=== PATIENT | male | born 1975 | race Caucasian/White ===

== ENCOUNTER 2017-04-06 15:42 | Inpatient (IN) ==
[2017-04-06] MEDS ORDERED: ONDANSETRON 4 MG/2 ML VIAL IV STA (16:05)
[2017-04-06] MEDS ORDERED: METOCLOPRAMIDE 10 MG/2 ML VIAL IV STA (16:05)
[2017-04-06] MEDS ORDERED: LEVOFLOXACIN INJ 750 MG in PREMIX 1 EACH IV STA (16:05)
--- NOTE | 2017-04-06 16:10 | Emergency Department Note ---
Arrival - Arrival Chief Complaint: Abdominal / Flank Pain Stated Complaint: POSSIBLE KIDNEY STONE ED Nursing Triage Note: L FLANK PAIN FOR PAST 3 DAYS,ESRD, MWF, HX OF RENAL CALCULI, Mode of Arrival: Wheelchair Limitations: No Limitations Source: Patient Time Seen by Provider: 04/06/17 16:05 - History of Present Illness HPI Narrative: This 41-year-old white male presents with 3 days of crescendo left flank pain radiating into the left testicle and the back associated with nausea but no elen vomiting. The patient has a long-standing history of renal stone disease with stones occurring both right and left kidneys. Of note further complicating this is the fact the patient is on dialysis Wednesday, Wednesdays, and Fridays. Currently he denies any hematuria, chills, fever, or elen vomiting. Of note, the patient has a long-standing history as well of recurrent pancreatitis which he has been told is due to high blood sugars in the past. He currently is uncomfortable but in no acute medical distress. Onset (ago): day(s) (Patient presents 3 days post onset of symptoms) Allergies/Adverse Reactions: Allergies Allergy/AdvReac Type Severity Reaction Status Date / Time tramadol [From Ultram] AdvReac Severe Seizure Verified 04/06/17 15:47 hydrocodone AdvReac Intermediate Vomiting Verified 04/06/17 15:47 sulfamethoxazole AdvReac Mild KIDNEY Verified 04/06/17 15:47 [From Bactrim] REACTION STATED BY PT MOTHER trimethoprim [From Bactrim] AdvReac Mild KIDNEY Verified 04/06/17 15:47 REACTION STATED BY PT MOTHER Home Medications: Home Medications Medication Instructions Recorded Confirmed Type Dexlansoprazole [Dexilant] 60 mg PO DAILY 02/07/15 04/06/17 History Ranitidine Tab [Zantac Tab] 150 mg PO BID 02/07/15 04/06/17 History Fenofibrate [Tricor] 145 mg PO BEDTIME 03/10/16 04/06/17 History Levothyroxine Tab [Synthroid Tab] 75 mcg PO DAILY 03/10/16 04/06/17 History Linagliptin [Tradjenta] 5 mg PO QAM 03/10/16 04/06/17 History Metoprolol Succinate Xl [Toprol Xl] 100 mg PO DAILY 03/10/16 04/06/17 History Aspirin EC Tab 81 mg PO QAM 08/12/16 04/06/17 History Furosemide 80 mg PO BID 08/12/16 04/06/17 History Acetaminophen Tab [Tylenol Tab] 650 mg PO Q4H PRN #0 tablet 08/15/16 04/06/17 Rx Pregabalin [Lyrica] 150 mg PO BID 09/29/16 04/06/17 History Atorvastatin [Lipitor] 20 mg PO BEDTIME 04/06/17 04/06/17 History Insulin Aspart [NovoLOG] See Protocol SUBCUT BID 04/06/17 04/06/17 History Oxycodone HCl/Acetaminophen 1 each PO Q4H PRN 04/06/17 04/06/17 History [Percocet 7.5-325 mg Tablet] Sucroferric Oxyhydroxide [Velphoro 500 mg PO DAILY 04/06/17 04/06/17 History Chew Tab] levETIRAcetam [Keppra] 1,500 mg PO BID 04/06/17 04/06/17 History predniSONE TAB [PredniSONE] 10 mg PO DAILY 04/06/17 04/06/17 History Review of System - Review of System 12 point system: reviewed and no additional remarkable complaints except as stated - Review of System Constitutional: Present: as per HPI Gastrointestinal: Present: as per HPI Genitourinary male: Present: as per HPI Medical,Surgical,& Family Hx - Medical History Cardio: History of: Cerebrovascular Disease, CAD (stent x 2), Hypertension, [place] ( 2012) Psychological: History of: Depression Neurology: History of: Migraine, Peripheral Neuropathy, Seizures No history of: Cerebrovascular Accident HEENT: History of: Ear Problem (LOST HEARING OUT OF RIGHT EAR POSS DUE TO NERVE DAMAGE STATES PT. 3YEAR AGO) Endocrine: History of: Diabetes Mellitus (IDDM), Diabetes Mellitus (NIDDM), Dyslipidemia, Thyroid Disorder (UNDERACTIVE THYROID PROBLEMS) Respiratory: History of: Obstructive Sleep Apnea Comment Only: Respiratory Problems (MEDIASTINOSCOPY) Renal: History of: Dialysis (M,W,F) Genitourinary: History of: Kidney Stones Gastrointestinal: History of: GERD, Hemorrhoids, Liver Problems (biopsy ok), Pancreatitis, GI Problems (NAUSEA AND VOMITING) - Surgical History Cardiac Surgeries: Sugical HX of: Cardiac Catheterization, Vascular Access Devices (fistula 2014) Thoracic Surgeries: Surgical HX of;: Lithotripsy (02/16/15) HEENT Surgeries: Surgical HX of: Eye Surgery (LASER SURGERY 2013) Abdominal Surgeries: Surgical HX of: Colonoscopy Reproductive Surgeries: Surgical HX of;: Genitourinary Surgery Orthopedic Surgeries: Surgical HX of;: Orthopedic Surgery (hip surgery secondary to fracture) - Family History Family History: Reports;: Family Diabetes (FATHER), Family Hypertension (MOTHER , FATHER, GRANDPARNENTS MATERNAL AND PATERNAL) Comment Only: Family Cancer (maternal grandfather(prostate)), Family Stroke ( Maternal grandmother) - Social History Smoking Status: Former smoker Exam Physical Examination: GENERAL: Well developed, well nourished obviously uncomfortable white male heart rate 74. HEENT: Normocephalic. No trauma. Moist mucous membranes. EOMI. PERRLA. ENT NML NECK: Supple. No adenopathy. CARDIAC: Regular. No murmurs. CHEST: Clear to auscultation. No respiratory distress. O2 sat 90% ABDOMEN: Soft. Very tender left CVA and left lower quadrant. Hypoactive bowel sounds. EXTREMITIES: No trauma. Normal ROM. No pedal edema. Left upper extremity fistula with good thrill. SKIN: No diaphoresis. No rash. NEURO: Alert. Neuro intact. No focal deficits. Vital Signs: Vital Signs Temperature 96.8 F L 04/06/17 16:06 Pulse Rate 73 04/06/17 16:45 Respiratory Rate 18 04/06/17 16:19 Blood Pressure 177/102 04/06/17 16:45 O2 Sat by Pulse Oximetry 96 04/06/17 16:45 Course - Reevaluation(s) Reevaluation #1: Advised patient and family that abdominal pain is probably due to the severe exacerbation of pancreatitis. For this reason he will need admission. - Consultations Consultation #1: Discussed with hospitalist service who will admit for further evaluation treatment. Results - Labs CBC & BMP: 04/06/17 16:03 04/06/17 16:03 Labs: I have reviewed the laboratory and noted the elevated blood sugar and severely elevated lipase. - Diagnostic Findings Procedure: Chest x-ray: image reviewed by me, report reviewed by me (Enlarged right pulmonary artery but otherwise negative chest), CT: image reviewed by me, report reviewed by me (No evidence of ureteral stone although a small stone in the lower pole left kidney was noted. There was significant increase in hepatic lesions as well as evidence of cholelithiasis and increase and portacaval lymphadenopathy since prior study in August 2016) Disposition Clinical Impression: Pancreatitis, Dialysis dependent renal failure, Increasing liver lesions Case discussed with: patient, patient's family Disposition: Still a Patient Condition: Guarded Time of Disposition: 17:59
[2017-04-06] MEDS ORDERED: LEVOFLOXACIN INJ 0 ML IV ONE (16:11)
[2017-04-06] MEDS ORDERED: HYDROmorphone 2 MG/1 ML VIAL ONE ×2 (16:11→17:34)
[2017-04-06] MEDS ORDERED: ONDANSETRON 4 MG/2 ML VIAL ONE (16:11)
[2017-04-06] MEDS ORDERED: METOCLOPRAMIDE 10 MG/2 ML VIAL ONE (16:11)
[2017-04-06 16:16] LABS: Basophils # 0.1 10*3/uL (0.0-0.2); Basophils % 1.2 % (0.0-0.8); Eosinophils # 0.1 10*3/uL (0.0-0.87); Hematocrit 42.5 VOL% (42.0-52.0); Hemoglobin 14.6 GM/DL (14.0-18.0); Immature Granulocytes % 1.2 %; Immature Granulocytes Absolute 0.06 #; Lymphocytes % 19.4 % (21.2-54.2); Mean Corpuscular HGB Conc 34.4 GM/DL (32-36); Mean Corpuscular Hemoglobin 31 PG (27-34); Monocytes # 0.7 10*3/uL (0.11-0.8); Monocytes % 13.6 % (1.7-12.7); Neutrophils # 3.1 10*3/uL (1.4-7.4); Neutrophils % 62.6 % (38.7-73.9); Red Blood Count 4.72 MC/CUMM (3.8-5.5); Red Cell Distribution Width 12.7 % (9.3-17.3)
[2017-04-06 16:20] LABS: Platelet Count 96 T/CUMM (130-400)
[2017-04-06] MEDS: HYDROmorphone 2 MG/1 ML VIAL IV PRN ×3 (16:23→17:35)
--- NOTE | 2017-04-06 16:37 | CT Report ---
CT abdomen pelvis wo con Indication: Left renal stone. Comparison: CT abdomen and pelvis 01/08/2016. Technique: CT of the abdomen and pelvis was performed without administration of intravenous contrast. The CT examination was performed using one or more of the following dose reduction techniques: Automatic exposure control, adjustment of the mA and kV according to patient size, use of acute or iterative reconstruction techniques. Findings: Calcification lies along the course of the lower pole interpolar renal artery and could reflect lower pole renal vascular calcification or nonobstructing nephrolith. Size is stable compared to prior study and measures 4 to 5 mm. High attenuation material is noted within each of the calyces as well as suggested within the ureters. Etiology is uncertain. There appears to be contrast within the urinary bladder additionally. Increased attenuation within the gallbladder may in part reflect vicarious excretion of contrast. Small layering calcified gallstones additionally present within the gallbladder. No findings are present suggest acute cholecystitis. Numerous hypoattenuating lesions of the liver present. Further evaluation is limited by lack of intravenous contrast. The largest of these lies within the posterior segment right hepatic lobe image #35 measuring 2.4 cm in transverse dimension. Additional lesions along the lateral capsular margin of the right hepatic lobe image #40 measures up to 2 cm. Too numerous to count additional lesions are noted throughout the right hepatic lobe with some suggested additionally in the left hepatic lobe. Spleen is upper limits of normal in size. The noncontrast enhanced appearance of the pancreas is unremarkable. Multiple retroperitoneal and peripancreatic lymph nodes are borderline in size to minimally enlarged. These measure up to 8 to 9 mm is demonstrated anterior to the aorta image #[id number] additional lower para-aortic lymph nodes image #82 measuring up to 13 mm. These lymph nodes have increased in size since the comparison study. Additionally, there is been some minimal increase in size of portacaval lymph nodes which now measure 14-15 mm in short axis dimension. Streak artifact arises from the right iliac wing from surgical hardware. There is laxity of the lateral abdominal wall adjacent iliac wing without elen herniation. The appearance of the stomach, small bowel, large bowel suggests no distinct evidence of neoplasm or acute pathology. A few scattered diverticula are present along lower descending colon. Scattered diverticula are additionally present along the ascending colon. Osseous structures demonstrate no acute findings. Previously repaired right iliac wing is noted. Soft tissues and musculature of the body wall with exception of the diastases along the right posterior lateral abdominal wall appear intact without evidence of acute pathology. Impression: 1. Size and number of multiple hepatic metastatic lesions has increased slightly since comparison study performed 09/22/2016. 2. Cholelithiasis. 3. There is evidence of recent contrast enhanced study with residual contrast noted within the renal collecting systems, urinary bladder, with vicarious excretion of contrast suggested within the gallbladder. 4. Interval increase in size and number of enlarged portacaval and retroperitoneal lymph nodes since the 2016 study, minimal change since August 2016. 5. Small renovascular calcification versus nonobstructing nephrolith involving the posterior lower left kidney.. 04/06/2017 4:26 PM PROCEDURE INTERPRETED AT [facility] DEPARTMENT OF RADIOLOGY Final Report Signed by: Dr. Bao Read
[2017-04-06 16:51] LABS: Bilirubin,Total 0.5 MG/DL (0.2-1.0); Calcium 8.8 MG/DL (8.5-10.1); Osmolality,Calculated 293.4 MOS/KG (273-304); Potassium 4.4 MMOL/L (3.5-5.1); Total Protein 7.1 G/DL (6.4-8.3)
[2017-04-06 17:00] LABS: Platelet Estimate Adequate
[2017-04-06] MEDS ORDERED: INSULIN REGULAR 100 UNIT/ML IV STA (17:18)
[2017-04-06] MEDS ORDERED: INSULIN REGULAR 100 UNIT/ML ONE (17:26)
--- NOTE | 2017-04-06 18:33 | XRay Report ---
XR chest 1V portable Indication: Chest pain. Comparison: Chest x-ray 11/14/2016. Technique: Portable AP chest was performed. Findings: Limited inspiration is present. The heart size is upper limits of normal, stable. Enlargement of pulmonary arteries is suggested. This finding also is stable compared to prior study. Lungs are clear to the degree of inspiration. Bones and soft tissues demonstrate no acute findings. Impression: 1. Bilateral prominence of hilar structures likely reflects in part pulmonary artery. Technique likely accentuates this finding. PA/lateral chest x-ray is recommended for further evaluation. 04/06/2017 6:03 PM PROCEDURE INTERPRETED AT [facility] DEPARTMENT OF RADIOLOGY Final Report Signed by: Dr. Bao Read
--- NOTE | 2017-04-06 18:33 | Hospitalist History & Physical ---
Assessment and Plan - Time spent with patient Time spent with patient: Greater than 30 minutes (1) Abdominal pain Status: Acute Assessment and plan: Patient will be admitted with abdominal pain. He does have an elevated lipase however his symptoms are not typical for that of pancreatitis. He has had no nausea or vomiting therefore will continue with the diet at this time and provide pain control. Will obtain ultrasound of his liver gallbladder pancreas and kidneys. His description of the pain is consistent with kidney stones, however his CT scan is noted. Follow-up laboratory studies in the a.m. and he will be reassessed by the hospitalist service at which time she may need formal specialty consultation based on pending database. Patient states he is aware of the liver lesions noted on the CT scan and states he has had multiple biopsies in the past and they have proven to be benign. He states they have related these to prior seizure therapy. Current Visit: Yes (2) End stage renal disease on dialysis Problem details: Routine CHD tomorrow. UF to EDW as tolerated by hemodynamics. 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 Current Visit: No (3) Hypertension Status: Chronic Assessment and plan: He is mildly hypertensive at this time. We will continue his current medical regimen with as needed antihypertensive therapy throughout the night. Current Visit: No Qualifiers: Hypertension type: essential hypertension Qualified Code(s): I10 - Essential (primary) hypertension (4) Hypothyroidism Status: Chronic Assessment and plan: Continue current thyroid replacement therapy. Current Visit: No (5) Insulin dependent diabetes mellitus Status: Chronic Assessment and plan: We will continue his routine medical therapy with Accu-Cheks and sliding scale insulin. Current Visit: No (6) Seizure disorder Status: Chronic Assessment and plan: Continue his current medical regimen. No recent seizure activity noted. Current Visit: No (7) CAD (coronary artery disease) Problem details: Known dz, hx of unable to pass stent in past. Followed by cardiology. Status: Chronic Assessment and plan: Patient states he has had a myocardial infarction in the past he has had cardiac catheterization with 2 stent placements. He denies any recent chest pain or shortness of breath consistent with acute coronary syndrome. Continue his current medical regimen. Current Visit: No History of Present Illness Chief complaint: Abdominal pain History of present illness: Mr. Sam is a 41 year old white male with a history of hypertension, diabetes mellitus, end-stage renal disease, seizure disorder who has a 3-4 day history of a left back and flank pain with radiation to his testicles. He has had some nausea but no vomiting. He has had no fever, chills, chest pain, shortness breath, cough or sputum production. He states he has minimal urine production. He has had kidney stones in the past and states that this is similar to that type of discomfort. He had a procedure in [place] this morning involving his left upper extremity dialysis graft. Thereafter he felt fine and ate a hamburger for lunch with no change in his pain. However it worsened later in the afternoon and he came to the emergency department. He states that eating and drinking has not affected his level of pain over the past 3-4 days. His primary care provider is Dr. Wiley Bridges, buttermaker continuous churn Dr. Hopkins, garbage collector driver Dr. Govea. Home Medications Medication Instructions Recorded Confirmed Type Dexlansoprazole [Dexilant] 60 mg PO DAILY 02/07/15 04/06/17 History Ranitidine Tab [Zantac Tab] 150 mg PO BID 02/07/15 04/06/17 History Fenofibrate [Tricor] 145 mg PO BEDTIME 03/10/16 04/06/17 History Levothyroxine Tab [Synthroid Tab] 75 mcg PO DAILY 03/10/16 04/06/17 History Linagliptin [Tradjenta] 5 mg PO QAM 03/10/16 04/06/17 History Metoprolol Succinate Xl [Toprol Xl] 100 mg PO DAILY 03/10/16 04/06/17 History Aspirin EC Tab 81 mg PO QAM 08/12/16 04/06/17 History Furosemide 80 mg PO BID 08/12/16 04/06/17 History Acetaminophen Tab [Tylenol Tab] 650 mg PO Q4H PRN #0 tablet 08/15/16 04/06/17 Rx Pregabalin [Lyrica] 150 mg PO BID 09/29/16 04/06/17 History Atorvastatin [Lipitor] 20 mg PO BEDTIME 04/06/17 04/06/17 History Insulin Aspart [NovoLOG] See Protocol SUBCUT BID 04/06/17 04/06/17 History Oxycodone HCl/Acetaminophen 1 each PO Q4H PRN 04/06/17 04/06/17 History [Percocet 7.5-325 mg Tablet] Sucroferric Oxyhydroxide [Velphoro 500 mg PO DAILY 04/06/17 04/06/17 History Chew Tab] levETIRAcetam [Keppra] 1,500 mg PO BID 04/06/17 04/06/17 History predniSONE TAB [PredniSONE] 10 mg PO DAILY 04/06/17 04/06/17 History Allergies Allergy/AdvReac Type Severity Reaction Status Date / Time tramadol [From Ultram] AdvReac Severe Seizure Verified 04/06/17 15:47 hydrocodone AdvReac Intermediate Vomiting Verified 04/06/17 15:47 sulfamethoxazole AdvReac Mild KIDNEY Verified 04/06/17 15:47 [From Bactrim] REACTION STATED BY PT MOTHER trimethoprim [From Bactrim] AdvReac Mild KIDNEY Verified 04/06/17 15:47 REACTION STATED BY PT MOTHER Medical,Surgical,& Family Hx - Medical History Cardio: History of: Cerebrovascular Disease, CAD (stent x 2), Hypertension, [place] ( 2012) Psychological: History of: Depression Neurology: History of: Migraine, Peripheral Neuropathy, Seizures No history of: Cerebrovascular Accident HEENT: History of: Ear Problem (LOST HEARING OUT OF RIGHT EAR POSS DUE TO NERVE DAMAGE STATES PT. 3YEAR AGO) Endocrine: History of: Diabetes Mellitus (IDDM), Diabetes Mellitus (NIDDM), Dyslipidemia, Thyroid Disorder (UNDERACTIVE THYROID PROBLEMS) Respiratory: History of: Obstructive Sleep Apnea Comment Only: Respiratory Problems (MEDIASTINOSCOPY) Renal: History of: Dialysis (M,W,F) Genitourinary: History of: Kidney Stones Gastrointestinal: History of: GERD, Hemorrhoids, Liver Problems (biopsy ok), Pancreatitis, GI Problems (NAUSEA AND VOMITING) - Surgical History Cardiac Surgeries: Sugical HX of: Cardiac Catheterization, Vascular Access Devices (fistula 2014) Thoracic Surgeries: Surgical HX of;: Lithotripsy (02/16/15) HEENT Surgeries: Surgical HX of: Eye Surgery (LASER SURGERY 2013) Abdominal Surgeries: Surgical HX of: Colonoscopy Reproductive Surgeries: Surgical HX of;: Genitourinary Surgery Orthopedic Surgeries: Surgical HX of;: Orthopedic Surgery (hip surgery secondary to fracture) - Family History Family History: Reports;: Family Diabetes (FATHER), Family Hypertension (MOTHER , FATHER, GRANDPARNENTS MATERNAL AND PATERNAL) Comment Only: Family Cancer (maternal grandfather(prostate)), Family Stroke ( Maternal grandmother) - Social History Smoking Status: Former smoker Frequency of Alcohol Use: None Type of Drug Use: None 12 point system: reviewed and no additional remarkable complaints except as stated Exam - Constitutional Vitals: Period Temp Pulse Resp BP Sys/Briseno Pulse Ox Last 24 Hr 96.8 F-96.8 F 70-78 16-18 154-178/87-103 96-99 General appearance: no acute distress - Head Head exam: Present: normocephalic, atraumatic - Eye Eye exam: Present: EOMI Pupils: Present: NAKUL - ENT ENT exam: Present: normal oropharynx - Neck Neck exam: Absent: lymphadenopathy, meningismus, tenderness, thyromegaly - Respiratory Respiratory exam: Present: clear to auscultation bilaterally. Absent: rales, rhonchi, wheezes - Cardiovascular Cardiovascular exam: Present: regular rate and rhythm. Absent: gallop, systolic murmur, tachycardia - GI/Abdominal GI/Abdominal exam: Present: normal bowel sounds, soft. Absent: mass, organomegaly, tenderness, rebound - Extremities Exam Extremities exam: Absent: calf tenderness, edema - Back Exam Back exam: Present: normal inspection - Neurological Exam Neurological exam: Present: alert, oriented X3, CN II-XII intact. Absent: motor sensory deficit - Psychiatric Psychiatric exam: Present: normal affect, normal mood. Absent: agitated, anxious - Skin Skin exam: Present: warm, dry. Absent: erythema, rash Results - Labs CBC & BMP: 04/06/17 16:03 04/06/17 16:03 Lab Results: I have reviewed the past 24 hour labs - Diagnostic Findings Procedure: Chest x-ray: image reviewed by me, CT Abdomen and Pelvis: report reviewed by me
--- NOTE | 2017-04-06 19:55 | Nephrology Consult Note ---
History of Present Illness Chief complaint: End-stage renal disease History of present illness: Mr. Sam is a 41 year old male with history of end-stage renal disease due to hypertension and diabetes dialyzes on a Wednesday schedule at the [place] dialysis unit. The patient had his dialysis access surgically manipulated in [facility] for left arm swelling. Postprocedure patient mentioned he was feeling fine able to eat his lunch and was traveling back home to the [facility]. However in transfer he started having side pain thought he was having a kidney stone. He has been evaluated in the emergency room no evidence of kidney stone at this particular time but continues to have pain. No fevers or chills. Nephrology is been consulted for renal issues. Home Medications Medication Instructions Recorded Confirmed Type Dexlansoprazole [Dexilant] 60 mg PO DAILY 02/07/15 04/06/17 History Ranitidine Tab [Zantac Tab] 150 mg PO BID 02/07/15 04/06/17 History Fenofibrate [Tricor] 145 mg PO BEDTIME 03/10/16 04/06/17 History Levothyroxine Tab [Synthroid Tab] 75 mcg PO DAILY 03/10/16 04/06/17 History Linagliptin [Tradjenta] 5 mg PO QAM 03/10/16 04/06/17 History Metoprolol Succinate Xl [Toprol Xl] 100 mg PO DAILY 03/10/16 04/06/17 History Aspirin EC Tab 81 mg PO QAM 08/12/16 04/06/17 History Furosemide 80 mg PO BID 08/12/16 04/06/17 History Acetaminophen Tab [Tylenol Tab] 650 mg PO Q4H PRN #0 tablet 08/15/16 04/06/17 Rx Pregabalin [Lyrica] 150 mg PO BID 09/29/16 04/06/17 History Atorvastatin [Lipitor] 20 mg PO BEDTIME 04/06/17 04/06/17 History Insulin Aspart [NovoLOG] See Protocol SUBCUT BID 04/06/17 04/06/17 History Oxycodone HCl/Acetaminophen 1 each PO Q4H PRN 04/06/17 04/06/17 History [Percocet 7.5-325 mg Tablet] Sucroferric Oxyhydroxide [Velphoro 500 mg PO DAILY 04/06/17 04/06/17 History Chew Tab] levETIRAcetam [Keppra] 1,500 mg PO BID 04/06/17 04/06/17 History predniSONE TAB [PredniSONE] 10 mg PO DAILY 04/06/17 04/06/17 History Allergies Allergy/AdvReac Type Severity Reaction Status Date / Time tramadol [From Ultram] AdvReac Severe Seizure Verified 04/06/17 15:47 hydrocodone AdvReac Intermediate Vomiting Verified 04/06/17 15:47 sulfamethoxazole AdvReac Mild KIDNEY Verified 04/06/17 15:47 [From Bactrim] REACTION STATED BY PT MOTHER trimethoprim [From Bactrim] AdvReac Mild KIDNEY Verified 04/06/17 15:47 REACTION STATED BY PT MOTHER Medical,Surgical,& Family Hx - Medical History Cardio: History of: Cerebrovascular Disease, CAD (stent x 2), Hypertension, [place] ( 2012) Psychological: History of: Depression Neurology: History of: Migraine, Peripheral Neuropathy, Seizures No history of: Cerebrovascular Accident HEENT: History of: Ear Problem (LOST HEARING OUT OF RIGHT EAR POSS DUE TO NERVE DAMAGE STATES PT. 3YEAR AGO) Endocrine: History of: Diabetes Mellitus (IDDM), Diabetes Mellitus (NIDDM), Dyslipidemia, Thyroid Disorder (UNDERACTIVE THYROID PROBLEMS) Respiratory: History of: Obstructive Sleep Apnea Comment Only: Respiratory Problems (MEDIASTINOSCOPY) Renal: History of: Dialysis (M,W,F) Genitourinary: History of: Kidney Stones Gastrointestinal: History of: GERD, Hemorrhoids, Liver Problems (biopsy ok), Pancreatitis, GI Problems (NAUSEA AND VOMITING) - Surgical History Cardiac Surgeries: Sugical HX of: Cardiac Catheterization, Vascular Access Devices (fistula 2014) Thoracic Surgeries: Surgical HX of;: Lithotripsy (02/16/15) HEENT Surgeries: Surgical HX of: Eye Surgery (LASER SURGERY 2013) Abdominal Surgeries: Surgical HX of: Colonoscopy Reproductive Surgeries: Surgical HX of;: Genitourinary Surgery Orthopedic Surgeries: Surgical HX of;: Orthopedic Surgery (hip surgery secondary to fracture) - Family History Family History: Reports;: Family Diabetes (FATHER), Family Hypertension (MOTHER , FATHER, GRANDPARNENTS MATERNAL AND PATERNAL) Comment Only: Family Cancer (maternal grandfather(prostate)), Family Stroke ( Maternal grandmother) - Social History Smoking Status: Former smoker Frequency of Alcohol Use: None Type of Drug Use: None Review of Systems Constitutional: no anorexia, no chills Respiratory: no cough, no dyspnea Gastrointestinal: abdominal pain Genitourinary: flank pain Musculoskeletal: no arthralgias Exam - Vital Signs Vital signs: Period Temp Pulse Resp BP Sys/Briseno Pulse Ox Last 24 Hr 96.8 F-96.8 F 70-81 16-20 154-178/87-103 96-100 - General Appearance General appearance: well-developed, well-nourished EENT: ATNC Neck: supple Respiratory: clear Cardiology: no edema, regular rate, regular rhythm Gastrointestinal: normoactive bowel sounds, no tenderness, no guarding Neurologic: alert and oriented x3 Musculoskeletal: no clubbing Results - Labs CBC & BMP: 04/06/17 16:03 04/06/17 16:03 Assessment and Plan (1) Diabetes Status: Chronic Current Visit: No Qualifiers: Diabetes mellitus type: type 2 Diabetes mellitus complication status: with kidney complications Diabetes mellitus complication detail: with nephropathy (2) End stage renal disease Status: Chronic Assessment and plan: Continue with scheduled hemodialysis. Continue dialysis schedule on Wednesday schedule. Current Visit: No (3) End stage renal disease on dialysis Problem details: Routine CHD tomorrow. UF to EDW as tolerated by hemodynamics. Status: Chronic Current Visit: No (4) Insulin dependent diabetes mellitus Status: Chronic Current Visit: No (5) Hypertension Status: Chronic Current Visit: No Qualifiers: Hypertension type: essential hypertension Qualified Code(s): I10 - Essential (primary) hypertension (6) Seizure disorder Status: Chronic Current Visit: No
[2017-04-06] MEDS ORDERED: hydrALAZINE 20 MG/1 ML VIAL IV PRN (19:57)
[2017-04-06] MEDS ORDERED: DEXTROSE 50% 25 GM/50 ML SYRINGE IV PRN (19:57)
[2017-04-06] MEDS ORDERED: GLUCAGON 1 MG VIAL IM PRN (19:57)
[2017-04-06] MEDS: ONDANSETRON 4 MG/2 ML VIAL IV PRN (20:23)
--- NOTE | 2017-04-06 20:36 | Ultrasound Report ---
Exam: US abdomen Indication: Abdominal pain. Pancreatitis. Renal failure. Comparison: None Technique: Using a transcutaneous probe, multiple grayscale and color Doppler images of the liver, gallbladder, spleen, pancreas, right kidney, left kidney, aorta, and inferior vena cava were captured and stored. Findings: Liver: The liver measures 15.8 cm . No significant abnormality of the liver is demonstrated. Color flow is present within the interrogated portal and hepatic venous segments. Gallbladder: Small layering gallstones with posterior shadowing are noted within the gallbladder neck. Wall thickening additionally is present. The gallbladder wall measures 6.7 mm. The common bile duct measures 6 mm. Pancreas: The pancreas demonstrates no significant abnormality. Spleen: The spleen demonstrates no significant abnormality. The spleen measures: Length 12 cm cm Width 3.2 cm cm. Right kidney: The right kidney demonstrates no evidence of acute pathology. No hydronephrosis or perinephric fluid collection is present. The right kidney measures: Length: 13.5 cm cm Width: 6.9 cm cm AP: 6.2 cm cm. Left kidney: Left kidney demonstrates no evidence of acute pathology. No hydronephrosis or perinephric fluid collection is present. The left kidney measures: Length: 12.5 cmcm Width 6.2 cm cm AP 6.7 cmcm. Aorta: Longitudinal images of the aorta demonstrate no significant abnormalities. Inferior vena cava: Inferior vena cava demonstrates no significant abnormality. Color flow is present. Impression: 1. In the correct clinical scenario, the combination of cholelithiasis and gallbladder wall thickening is considered compatible with acute cholecystitis. 2. Mild dilation of the extrahepatic bile duct is present without ultrasound evidence of choledocholithiasis. PROCEDURE INTERPRETED AT [facility] DEPARTMENT OF RADIOLOGY Final Report Signed by: Dr. Bao Read
[2017-04-06 21:49] LABS: Lactic Acid 1.3 MMOL/L (0.4-2.0)
[2017-04-06] MEDS: levETIRAcetam 500 MG TABLET PO SCH (22:07)
[2017-04-06] MEDS: PREGABALIN 75 MG CAPSULE PO SCH (22:08)
[2017-04-06] MEDS: ATORVASTATIN 20 MG TABLET PO SCH (22:08)
[2017-04-06] MEDS: FENOFIBRATE 145 MG TABLET PO SCH (22:08)
[2017-04-06] MEDS: LIDOCAINE/PRILOCAINE CREAM 5 GM TUBE TOP ONE (22:09)
[2017-04-06] MEDS: ENOXAPARIN 30 MG/0.3 ML SYRINGE SUBCUT SCH (22:10)
[2017-04-06] MEDS: FUROSEMIDE 80 MG TABLET PO SCH (22:18)
[2017-04-06] MEDS: INSULIN LISPRO 100 UNIT/ML SUBCUT SCH (22:22)
[2017-04-06] MEDS: MORPHINE 2 MG/1 ML SYRINGE IV PRN (22:23)
[2017-04-07 00:59] LABS: Apearance,Urine CLEAR (Clear); Bacteria,Urine Occasional /HPF (Few); Bilirubin,Urine Negative (Negative); Blood, Urine Small mg/dL (Negative); Glucose,Urine (UA) >=500 mg/dL (Negative); Ketones,Urine Negative (Negative); Mucus,Urine Occasional /LPF (Occasional); Nitrite,Urine Negative (Negative); Protein,Urine >=500 MG/DL; RBC,Urine 18 /HPF (0-4); Squamous Epithelial Cell,Urine Occasional /HPF (0-10); Urine Color Yellow (Yellow); Urine Specific Gravity 1.015 (1.001-1.035); Urine Urobilinogen < 2.0 EU/DL (0.2-1.0); WBC,Urine 22 /HPF (0-6)
[2017-04-07] MEDS: MORPHINE 2 MG/1 ML SYRINGE IV PRN (04:24)
[2017-04-07] MEDS: ONDANSETRON 4 MG/2 ML VIAL IV PRN (05:10)
[2017-04-07 05:29] LABS: Basophils # 0.1 10*3/uL (0.0-0.2); Basophils % 0.8 % (0.0-0.8); Eosinophils # 0.1 10*3/uL (0.0-0.87); Eosinophils % 2.1 % (0.00-10.9); Hematocrit 29.9 VOL% (42.0-52.0); Hemoglobin 10.2 GM/DL (14.0-18.0); Immature Granulocytes Absolute 0.06 #; Lymphocytes # 1.5 10*3/uL (1.4-4.0); Lymphocytes % 24.7 % (21.2-54.2); Mean Corpuscular HGB Conc 34.1 GM/DL (32-36); Mean Corpuscular Hemoglobin 31 PG (27-34); Mean Corpuscular Volume 90.3 FL (87-102); Mean Platelet Volume 12.4 FL (9.6-12.0); Monocytes # 0.8 10*3/uL (0.11-0.8); Monocytes % 13.6 % (1.7-12.7); Neutrophils # 3.6 10*3/uL (1.4-7.4); Neutrophils % 57.8 % (38.7-73.9); Platelet Count 124 T/CUMM (130-400); Red Blood Count 3.31 MC/CUMM (3.8-5.5); Red Cell Distribution Width 12.9 % (9.3-17.3); White Blood Count 6.2 T/CUMM (4-12)
[2017-04-07 06:11] LABS: Free T4 (Free Thyroxine) 1.21 NG/DL (0.76-1.46); Thyroid Stimulating Hormone 5.11 uIU/ml (0.358-3.74)
[2017-04-07 07:13] LABS: Albumin 2.8 G/DL (3.4-5.0); Bilirubin,Total 0.4 MG/DL (0.2-1.0); Calcium 8.9 MG/DL (8.5-10.1); Osmolality,Calculated 288.2 MOS/KG (273-304); Potassium 4.7 MMOL/L (3.5-5.1); Risk Ratio 8.93; Total Protein 6.6 G/DL (6.4-8.3); VLDL CHOLESTEROL 51.8 MG/DL
[2017-04-07] MEDS: LIDOCAINE/PRILOCAINE CREAM 5 GM TUBE TOP ONE (07:33)
[2017-04-07] MEDS: LEVOTHYROXINE 75 MCG TABLET PO SCH (07:47)
[2017-04-07] MEDS ORDERED: NON-FORMULARY MEDICATION (Sucroferric Oxyhydroxide [Velphoro Chew Tab] 500 MG) PO SCH (09:00)
[2017-04-07] MEDS: INSULIN LISPRO 100 UNIT/ML SUBCUT SCH ×4 (09:28→21:16)
[2017-04-07] MEDS: PANTOPRAZOLE 40 MG TABLET PO SCH (09:29)
[2017-04-07] MEDS: ASPIRIN EC 81 MG TABLET PO SCH (09:29)
[2017-04-07] MEDS: sitaGLIPtin 25 MG TABLET PO SCH (09:29)
[2017-04-07] MEDS: METOPROLOL SUCCINATE XL 100 MG TABLET PO SCH (09:29)
[2017-04-07] MEDS: levETIRAcetam 500 MG TABLET PO SCH ×2 (09:29→21:18)
[2017-04-07] MEDS: PREGABALIN 75 MG CAPSULE PO SCH ×2 (09:29→21:18)
[2017-04-07] MEDS: predniSONE 10 MG TABLET PO SCH (09:30)
[2017-04-07] MEDS: FUROSEMIDE 80 MG TABLET PO SCH ×2 (09:30→16:36)
[2017-04-07 10:50] LABS: Hepatitis A Ab IgM Quant 0.13 Index; Hepatitis A Ab IgM Result Negative (Negative); Hepatitis B Core IgM Quant 0.07 Index; Hepatitis B Core IgM Result Negative (Negative); Hepatitis B Surface Ag Quant < 0.10 Index; Hepatitis B Surface Ag Result Negative (Negative); Hepatitis C Virus Ab Quant 0.21 Index; Hepatitis C Virus Ab Result Negative (Negative)
[2017-04-07] MEDS: oxyCODONE/ACETAMINOPHEN 5-325 MG TABLET PO PRN ×3 (11:15→21:25)
--- NOTE | 2017-04-07 13:21 | Dialysis Note ---
Dialysis Note - Dialysis Note Patient seen on hemodialysis, he is tolerating this well will continue his treatment unchanged.
--- NOTE | 2017-04-07 14:04 | Hospitalist Progress Note ---
Assessment and Plan (1) Abdominal pain Status: Acute Assessment and plan: Somewhat improved, patient now complaining of a groin pain. Plan Scrotal USS pain meds Current Visit: Yes (2) End stage renal disease on dialysis Problem details: Routine CHD tomorrow. UF to EDW as tolerated by hemodynamics. Status: Chronic Assessment and plan: continue with HD Current Visit: No (3) Hypertension Status: Chronic Assessment and plan: stable Current Visit: No Qualifiers: Hypertension type: essential hypertension Qualified Code(s): I10 - Essential (primary) hypertension (4) Seizure disorder Status: Chronic Assessment and plan: Continue his current medical regimen. No recent seizure activity noted. Current Visit: No (5) Insulin dependent diabetes mellitus Status: Chronic Assessment and plan: start lantus 10units qhs, follow response, continue with Accu-Cheks and sliding scale insulin. Will check HbA1c level Current Visit: No (6) Hypothyroidism Status: Chronic Assessment and plan: continue with supplements Current Visit: No (7) Dyslipidemia Status: Acute Assessment and plan: continue with meds Current Visit: Yes (8) Liver lesion Status: Acute Assessment and plan: multiple biopsies in the past and they have proven to be benign. Current Visit: No (9) Anemia Status: Acute Assessment and plan: no clinical evidence of bleed, most likely due to ESRD Continue to monitor. Current Visit: No (10) CAD (coronary artery disease) Status: Acute Assessment and plan: s/p myocardial infarction in the past he has had cardiac catheterization with 2 stent placements. He denies any recent chest pain or shortness of breath consistent with acute coronary syndrome. Continue his current medical regimen. Current Visit: Yes Hospitalist: Subjective Interval history: Patient seen in dialysis. He complains of a groin pain. His H/H dropped a little and blood sugar has been a little high. Exam - Constitutional Vitals: Period Temp Pulse Resp BP Sys/Briseno Pulse Ox Last 24 Hr 96.8 F-98.1 F 69-81 16-20 128-178/80-103 93-100 General appearance: no acute distress - Head Head exam: Present: normal inspection - Respiratory Respiratory exam: Present: clear to auscultation bilaterally - Cardiovascular Cardiovascular exam: Present: regular rate and rhythm - GI/Abdominal GI/Abdominal exam: Present: normal bowel sounds - Extremities Exam Extremities exam: Present: normal inspection - Neurological Exam Neurological exam: Present: alert, oriented X3 Results - Labs CBC & BMP: 04/07/17 05:04 04/07/17 05:04 Lab Results: I have reviewed the past 24 hour labs
--- NOTE | 2017-04-07 16:16 | Ultrasound Report ---
US scrotum Indication: Scrotal pain. Comparison: None. Technique: Using a transcutaneous probe, multiple grayscale and color Doppler images of the scrotum including testicles and epididymides were captured and stored. Findings: Each testicle demonstrates homogeneous echotexture as well as presence of color flow and low resistance arterial spectral waveforms. The epididymides bilaterally demonstrate no significant abnormalities. Impression: 1. No acute findings. 04/07/2017 4:13 PM PROCEDURE INTERPRETED AT [facility] DEPARTMENT OF RADIOLOGY Final Report Signed by: Dr. Bao Read
[2017-04-07] MEDS ORDERED: INSULIN GLARGINE 100 UNIT/ML SUBCUT SCH (21:00)
[2017-04-07] MEDS: ENOXAPARIN 30 MG/0.3 ML SYRINGE SUBCUT SCH (21:17)
[2017-04-07] MEDS: FENOFIBRATE 145 MG TABLET PO SCH (21:18)
[2017-04-07] MEDS: ATORVASTATIN 20 MG TABLET PO SCH (21:18)
[2017-04-08] MEDS: LEVOTHYROXINE 75 MCG TABLET PO SCH (06:10)
[2017-04-08 06:59] LABS: Basophils % 0.6 % (0.0-0.8); Eosinophils # 0.1 10*3/uL (0.0-0.87); Eosinophils % 1.8 % (0.00-10.9); Hematocrit 31.6 VOL% (42.0-52.0); Hemoglobin 10.4 GM/DL (14.0-18.0); Immature Granulocytes % 1.3 %; Immature Granulocytes Absolute 0.09 #; Lymphocytes # 2.2 10*3/uL (1.4-4.0); Lymphocytes % 32.9 % (21.2-54.2); Mean Corpuscular HGB Conc 32.9 GM/DL (32-36); Mean Corpuscular Hemoglobin 31 PG (27-34); Mean Corpuscular Volume 92.7 FL (87-102); Mean Platelet Volume 12.1 FL (9.6-12.0); Monocytes # 0.9 10*3/uL (0.11-0.8); Monocytes % 13.1 % (1.7-12.7); Neutrophils # 3.4 10*3/uL (1.4-7.4); Neutrophils % 50.3 % (38.7-73.9); Platelet Count 139 T/CUMM (130-400); Red Blood Count 3.41 MC/CUMM (3.8-5.5); White Blood Count 6.7 T/CUMM (4-12)
[2017-04-08 07:31] LABS: Calcium 8.5 MG/DL (8.5-10.1); Osmolality,Calculated 287.1 MOS/KG (273-304); Potassium 4.9 MMOL/L (3.5-5.1)
--- NOTE | 2017-04-08 09:43 | Discharge Summary ---
<Johnny John - Last Filed: 04/08/17 09:33> Hospital Course - Hospital Course Hospital Course: This is a very pleasant 41-year-old male that presented to the ED at [facility] on the night of April 06, 2017 for the evaluation of abdominal pain. The patient has a medical history significant for hypertension , hypothyroidism, end-stage renal disease, coronary artery disease, seizure disorder, obstructive sleep apnea, myocardial infarction, depression, peripheral neuropathy, migraine headaches, renal calculi, gastro-esophageal reflux disease, pancreatitis, and hemorrhoids. Patient surgical history significant for cardiac catheterization with subsequent stent placement, arteriovascular access creation in 2014, lithotripsy, laser eye surgery, colonoscopy, and hip surgery. The patient reported the onset of symptoms 3-4 days prior to presentation. He reported that he started to experience pain and discomfort to the left lower portion of his back and flank. In addition, the patient reported that the pain radiated to his testicles. He reported that he had some nausea however, experienced no vomiting, fever, chills, chest pain, shortness of breath, cough, or sputum production. He reports that he is not completely and uric and still makes a very small amount of urine. He attributed the presenting symptoms to kidney stones for which he has experienced in the past. He reported a procedure on the day of presentation to his left upper extremity dialysis graft. He reported that it was uneventful and that he experienced no discomfort afterwards. He proceeded to eat lunch which was a hamburger and developed an onset of pain shortly thereafter. He reported that his pain fail to subside prompting him to present to the ED for further evaluation. The patient was seen and assessed at the time of ED presentation. Labs were significant for platelet count of 96, sodium of 133, chloride 94, BUN 42, creatinine 6.30, and glucose of 409. CT abdomen and pelvis was significant for multiple hepatic metastatic lesions, cholelithiasis, interval increase in size and number of enlarged portacaval and retroperitoneal lymph nodes, and a small renal vascular calcification versus nonobstructing nephrolith involving the posterior lower left kidney was noted. Chest x-ray reported bilateral prominence of hilar structures. Abdominal ultrasound reported a combination of cholelithiasis and gallbladder bladder wall thickening which was compatible with cholecystitis and a mild dilatation of the extrahepatic bile duct was present. The patient was subsequently admitted to the hospitalist service for continuation of care. Due to the severity of the patient's renal function, a nephrology consultation was requested. Supportive care was initiated. The patient was seen and evaluated by nephrology and recommendations were given. The patient's hemodialysis was resumed as previously scheduled. Multiple Liver multiple biopsies in the past and they have proven to be benign.Family states patient has an appointment with orthopedics Amandeep tomorrow at 10am for a pelvic fracture and they would like for patient to be dcd today.He complained of groin pain yesterday and a scrotal uss was unremarkable. The patient's condition slowly improved. The patient's condition is stable. Vitals are stable. The patient has not experienced any significant overnight events. 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 Discharge Plan - Discharge Data Disposition: Disch To Home/Self Care - Discharge Medications Continue Ranitidine Tab [Zantac Tab] 150 mg PO BID Dexlansoprazole [Dexilant] 60 mg PO DAILY Levothyroxine Tab [Synthroid Tab] 75 mcg PO DAILY Fenofibrate [Tricor] 145 mg PO BEDTIME Metoprolol Succinate Xl [Toprol Xl] 100 mg PO DAILY Linagliptin [Tradjenta] 5 mg PO QAM Aspirin EC Tab 81 mg PO QAM Acetaminophen Tab [Tylenol Tab] 650 mg PO Q4H PRN #0 tablet PRN Reason: Fever, Headache, Mild Pain Sucroferric Oxyhydroxide [Velphoro Chew Tab] 500 mg PO DAILY predniSONE TAB [PredniSONE] 10 mg PO DAILY Insulin Aspart [NovoLOG] See Protocol SUBCUT BID Atorvastatin [Lipitor] 20 mg PO BEDTIME Duloxetine HCl [Cymbalta] 60 mg PO DAILY Furosemide 80 mg PO BID Pregabalin [Lyrica] 150 mg PO BID levETIRAcetam [Keppra] 1,500 mg PO BID Oxycodone HCl/Acetaminophen [Percocet 7.5-325 mg Tablet] 1 each PO Q4H PRN # 20 PRN Reason: Pain - Follow Up or Referral - Forms/Instructions Instructions: Diabetic Hypoglycemia (DC), Diabetic Hyperglycemia (DC) Exam - Constitutional Vitals: Period Temp Pulse Resp BP Sys/Briseno Pulse Ox Last 24 Hr 96.7 F-98.7 F 70-76 16-22 127-134/64-74 93-97 Discharge Results Procedures and tests throughout hospitalization: Pending Orders 04/07/17 Urine Culture Routine Labs on day of discharge: Labs from last 24 hours 04/08/17 04/08/17 04/08/17 07:40 06:02 06:02 WBC 6.7 RBC 3.41 L Hgb 10.4 L Hct 31.6 L MCV 92.7 MCH 31 MCHC 32.9 RDW 13.0 Plt Count 139 MPV 12.1 H Neut % (Auto) 50.3 Lymph % (Auto) 32.9 [place] % (Auto) 13.1 H Eos % (Auto) 1.8 Baso % (Auto) 0.6 Neut # (Auto) 3.4 Lymph # (Auto) 2.2 [place] # (Auto) 0.9 H Eos # (Auto) 0.1 Baso # (Auto) 0.0 Immature Gran % 1.3 Nucleated RBC % 0.0 Immature Gran # 0.09 Nucleated RBCs # 0.00 Immature Plt Fraction 0.0 Sodium 135 L Potassium 4.9 Chloride 97 L Carbon Dioxide 28 Anion Gap 14.9 BUN 38 H Creatinine 6.70 H GFR Calculation 12 BUN/Creatinine Ratio 5.00 L Glucose 265 H POC Glucose 324 H Hemoglobin A1c Calculated Osmolality 287.1 Calcium 8.5 Hepatitis A IgM Ab Hep Bs Antigen Hep B Core IgM Ab Hepatitis C Antibody 04/07/17 04/07/17 04/07/17 20:20 16:13 09:06 WBC RBC Hgb Hct MCV MCH MCHC RDW Plt Count MPV Neut % (Auto) Lymph % (Auto) [place] % (Auto) Eos % (Auto) Baso % (Auto) Neut # (Auto) Lymph # (Auto) [place] # (Auto) Eos # (Auto) Baso # (Auto) Immature Gran % Nucleated RBC % Immature Gran # Nucleated RBCs # Immature Plt Fraction Sodium Potassium Chloride Carbon Dioxide Anion Gap BUN Creatinine GFR Calculation BUN/Creatinine Ratio Glucose POC Glucose 308 H 197 H Hemoglobin A1c Calculated Osmolality Calcium Hepatitis A IgM Ab Negative Hep Bs Antigen Negative Hep B Core IgM Ab Negative Hepatitis C Antibody Negative 04/07/17 05:04 WBC RBC Hgb Hct MCV MCH MCHC RDW Plt Count MPV Neut % (Auto) Lymph % (Auto) [place] % (Auto) Eos % (Auto) Baso % (Auto) Neut # (Auto) Lymph # (Auto) [place] # (Auto) Eos # (Auto) Baso # (Auto) Immature Gran % Nucleated RBC % Immature Gran # Nucleated RBCs # Immature Plt Fraction Sodium Potassium Chloride Carbon Dioxide Anion Gap BUN Creatinine GFR Calculation BUN/Creatinine Ratio Glucose POC Glucose Hemoglobin A1c 10.2 H Calculated Osmolality Calcium Hepatitis A IgM Ab Hep Bs Antigen Hep B Core IgM Ab Hepatitis C Antibody DS: Provider Date of admission: 04/06/17 18:24 Primary care physician: . No PCP Attending physician on admission: Yennifer Sargent MD Consults: 04/06/17 19:57 Consult to Physician [CONS] Routine Comment: ESRD Consulting Provider: Maulik Govea Jr. Discharging clinician: Johnny John CNP <Trish Beckwith - Last Filed: 04/08/17 10:52> Hospital Course - Time spent with patient Time with patient DS: Greater than 30 minutes (Time spent greater than 35mins) Diagnosis - Discharge Diagnosis (1) Abdominal pain Status: Acute (2) End stage renal disease on dialysis Status: Chronic (3) Hypertension Status: Chronic (4) Seizure disorder Status: Chronic (5) Insulin dependent diabetes mellitus Status: Chronic (6) Hypothyroidism Status: Chronic (7) Dyslipidemia Status: Acute (8) Liver lesion Status: Acute (9) Anemia Status: Acute (10) CAD (coronary artery disease) Status: Acute Discharge Plan - Discharge Data Condition at Discharge: Stable Discharge Diet: heart healthy Activity: resume usual activities as tolerated - Forms/Instructions Additional Discharge Instructions: Follow with PCP in 1week. Follow with orthopedics,Nephrology as scheduled Exam - Constitutional General appearance: no acute distress - Head Head exam: Present: normal inspection - Respiratory Respiratory exam: Present: clear to auscultation bilaterally - Cardiovascular Cardiovascular exam: Present: regular rate and rhythm - GI/Abdominal GI/Abdominal exam: Present: normal bowel sounds - Extremities Exam Extremities exam: Present: normal inspection
[2017-04-08] MEDS: INSULIN LISPRO 100 UNIT/ML SUBCUT SCH ×2 (09:47→12:08)
[2017-04-08] MEDS: METOPROLOL SUCCINATE XL 100 MG TABLET PO SCH (09:47)
[2017-04-08] MEDS: levETIRAcetam 500 MG TABLET PO SCH (09:48)
[2017-04-08] MEDS: PREGABALIN 75 MG CAPSULE PO SCH (09:48)
[2017-04-08] MEDS: ASPIRIN EC 81 MG TABLET PO SCH (09:48)
[2017-04-08] MEDS: predniSONE 10 MG TABLET PO SCH (09:48)
[2017-04-08] MEDS: sitaGLIPtin 25 MG TABLET PO SCH (09:48)
[2017-04-08] MEDS: FUROSEMIDE 80 MG TABLET PO SCH (09:48)
[2017-04-08] MEDS: PANTOPRAZOLE 40 MG TABLET PO SCH (10:00)
[2017-04-08 12:15] VITALS: BP 161/88
== END 2017-04-08 13:28 | disposition home or self-care (01) | DRG 391 ==
LOC: N.ED 15:42 → N.EDINP 18:24 → SUATTDRO 18:24 → N.2E 19:31
PROVIDERS: ADMIT Family Medicine; ATTEND Internal Medicine

== ENCOUNTER 2017-04-11 11:07 | Inpatient (IN) ==
[2017-04-11 14:23] LABS: Basophils # 0.1 10*3/uL (0.0-0.2); Basophils % 0.5 % (0.0-0.8); Eosinophils # 0.2 10*3/uL (0.0-0.87); Eosinophils % 1.7 % (0.00-10.9); Hematocrit 30.5 VOL% (42.0-52.0); Hemoglobin 10.4 GM/DL (14.0-18.0); Immature Granulocytes % 1.3 %; Immature Granulocytes Absolute 0.15 #; Lymphocytes # 1.8 10*3/uL (1.4-4.0); Lymphocytes % 15.7 % (21.2-54.2); Mean Corpuscular HGB Conc 34.1 GM/DL (32-36); Mean Corpuscular Hemoglobin 31 PG (27-34); Mean Corpuscular Volume 90.2 FL (87-102); Monocytes # 0.9 10*3/uL (0.11-0.8); Monocytes % 8.3 % (1.7-12.7); Neutrophils # 8.1 10*3/uL (1.4-7.4); Neutrophils % 72.5 % (38.7-73.9); Platelet Count 145 T/CUMM (130-400); Red Blood Count 3.38 MC/CUMM (3.8-5.5); Red Cell Distribution Width 12.9 % (9.3-17.3); White Blood Count 11.2 T/CUMM (4-12)
[2017-04-11 15:04] LABS: Apearance,Urine CLEAR (Clear); Bilirubin,Urine Negative (Negative); Blood, Urine Small mg/dL (Negative); Glucose,Urine (UA) 150 mg/dL (Negative); Ketones,Urine Negative (Negative); Nitrite,Urine Negative (Negative); Protein,Urine >=500 MG/DL; RBC,Urine 4 /HPF (0-4); Squamous Epithelial Cell,Urine Occasional /HPF (0-10); Urine Color Yellow (Yellow); Urine Specific Gravity 1.012 (1.001-1.035); Urine Urobilinogen < 2.0 EU/DL (0.2-1.0); WBC,Urine 13 /HPF (0-6)
--- NOTE | 2017-04-11 16:23 | Emergency Department Note ---
Arrival - Arrival Chief Complaint: Extremity Problem Stated Complaint: Pain in side and vomiting.. since last night ED Nursing Triage Note: PATIENT TO TRIAGE WITH C/O LEFT SIDE/HIP PAIN THAT IS CAUSING HIM TO THROW UP. PATIENT WAS DISCHARGED WEDNESDAY FROM HERE FOR THE SAMETHING. PATIENT WAS SEEN IN [place] ON WEDNESDAY WELL. Mode of Arrival: Wheelchair Limitations: No Limitations Source: Patient, Family (father) Time Seen by Provider: 04/11/17 13:27 - History of Present Illness HPI Narrative: 41-year-old white male patient, father present and both give history. Complains of left groin pain, testicular pain, nausea/vomiting that has been persistent since 04/06/2017. Associated with N/V. Recent admission 04/06/2017 for same complaint. Pt states, "It never got any better." He also states that he has been followed at [facility] for the complaint and on 04/09/[address] of abdomen and plevis, but hasn't gotten the results yet. Denies fever, bodyaches , diarrhea, hematemesis, blood in stool. Recent abd CT shows mult. hepatic metastatic lesions that are increasing in size, scrotal US was negative. PMH: ESRD, DM II, HTN, SZ D/O, CAD, hypothyroidism, HLD, hepatic lesions, anemia Allergies/Adverse Reactions: Allergies Allergy/AdvReac Type Severity Reaction Status Date / Time tramadol [From Ultram] AdvReac Severe Seizure Verified 04/11/17 11:24 hydrocodone AdvReac Intermediate Vomiting Verified 04/11/17 11:24 sulfamethoxazole AdvReac Mild KIDNEY Verified 04/11/17 11:24 [From Bactrim] REACTION STATED BY PT MOTHER trimethoprim [From Bactrim] AdvReac Mild KIDNEY Verified 04/11/17 11:24 REACTION STATED BY PT MOTHER Home Medications: Home Medications Medication Instructions Recorded Confirmed Type Dexlansoprazole [Dexilant] 60 mg PO QAM 02/07/15 04/11/17 History Ranitidine Tab [Zantac Tab] 150 mg PO BID 02/07/15 04/11/17 History Fenofibrate [Tricor] 145 mg PO BEDTIME 03/10/16 04/11/17 History Levothyroxine Tab [Synthroid Tab] 75 mcg PO QAM 03/10/16 04/11/17 History Linagliptin [Tradjenta] 5 mg PO QAM 03/10/16 04/11/17 History Metoprolol Succinate Xl [Toprol Xl] 100 mg PO QAM 03/10/16 04/11/17 History Aspirin EC Tab 81 mg PO QAM 08/12/16 04/11/17 History Furosemide 80 mg PO BID 08/12/16 04/11/17 History Pregabalin [Lyrica] 150 mg PO BID 09/29/16 04/11/17 History Atorvastatin [Lipitor] 20 mg PO BEDTIME 04/06/17 04/11/17 History Insulin Aspart [NovoLOG] See Protocol SUBCUT BID 04/06/17 04/11/17 History Sucroferric Oxyhydroxide [Velphoro 500 mg PO DAILY 04/06/17 04/11/17 History Chew Tab] levETIRAcetam [Keppra] 1,500 mg PO BID 04/06/17 04/11/17 History predniSONE TAB [PredniSONE] 10 mg PO QAM 04/06/17 04/11/17 History Duloxetine HCl [Cymbalta] 60 mg PO QAM 04/07/17 04/11/17 History Oxycodone HCl/Acetaminophen 1 each PO Q4H PRN #20 04/08/17 04/11/17 Rx [Percocet 7.5-325 mg Tablet] Review of System - Review of System 12 point system: reviewed and no additional remarkable complaints except as stated - Review of System Constitutional: Present: as per HPI, fever Gastrointestinal: Present: as per HPI, nausea, vomiting. Absent: abdominal pain , diarrhea Genitourinary male: Present: as per HPI, testicular pain. Absent: discharge, genital lesions Medical,Surgical,& Family Hx - Medical History Cardio: History of: Cerebrovascular Disease, CAD (stent x 2), Hypertension, [place] ( 2013) Psychological: History of: Depression Neurology: History of: Migraine, Peripheral Neuropathy, Seizures No history of: Cerebrovascular Accident HEENT: History of: Ear Problem (LOST HEARING OUT OF RIGHT EAR POSS DUE TO NERVE DAMAGE STATES PT. 3YEAR AGO) Endocrine: History of: Diabetes Mellitus (IDDM), Diabetes Mellitus (NIDDM), Dyslipidemia, Thyroid Disorder (UNDERACTIVE THYROID PROBLEMS) Respiratory: History of: Obstructive Sleep Apnea, Pneumonia Comment Only: Respiratory Problems (MEDIASTINOSCOPY) Renal: History of: Dialysis (M,W,F) Genitourinary: History of: Kidney Stones Gastrointestinal: History of: GERD, Hemorrhoids, Liver Problems (biopsy ok), Pancreatitis, GI Problems (NAUSEA AND VOMITING) Musculoskeletal: History of: Back/Neck Problems, Musculoskeletal Problems Other: History of: Miscellaneous Medical Problems (SARCOIDOSIS) - Surgical History Cardiac Surgeries: Sugical HX of: Cardiac Catheterization, Vascular Access Devices (fistula 2014) Thoracic Surgeries: Surgical HX of;: Lithotripsy (02/16/15) HEENT Surgeries: Surgical HX of: Eye Surgery (LASER SURGERY 2013) Abdominal Surgeries: Surgical HX of: Colonoscopy Reproductive Surgeries: Surgical HX of;: Genitourinary Surgery Orthopedic Surgeries: Surgical HX of;: Orthopedic Surgery (hip surgery secondary to fracture) - Family History Family History: Reports;: Family Diabetes (FATHER), Family Hypertension (MOTHER , FATHER, GRANDPARNENTS MATERNAL AND PATERNAL) Comment Only: Family Cancer (maternal grandfather(prostate)), Family Stroke ( Maternal grandmother) - Social History Smoking Status: Former smoker Frequency of Alcohol Use: None Type of Drug Use: None Exam Physical Examination: - General General appearance: in no apparent distress - Head Head exam: Present: atraumatic, normocephalic, normal inspection - Eye Eye exam: Present: normal appearance, EOMI - ENT ENT exam: Present: normal exam - Neck Neck exam: Present: normal inspection, full ROM. Absent: tenderness, lymphadenopathy - Chest Chest inspection: Present: symmetric chest wall rise - Respiratory Respiratory exam: Present: normal lung sounds bilaterally - Cardiovascular Cardiovascular exam: Present: regular rate, normal rhythm, normal heart sounds - Abdominal Exam Abdominal exam: Present: soft, normal bowel sounds. Tenderness noted to left groin - Extremities Exam Extremities exam: Present: left upper arm with fistula-positive thrill and bruit , full ROM, normal capillary refill - Back Exam Back exam: Present: normal inspection. Absent: CVA tenderness (R), CVA tenderness (L) - Neurological Exam Neurological exam: Present: lethargic-easily arousable to name calling, oriented X3, - Psychiatric Psychiatric exam: Present: normal affect, normal mood - Skin Skin exam: Present: warm, dry, intact; suture noted to left upper arm. Vital Signs: Vital Signs Temperature 97.5 F L 04/12/17 11:35 Pulse Rate 71 04/12/17 11:35 Respiratory Rate 20 04/12/17 11:35 Blood Pressure 135/85 04/12/17 11:35 O2 Sat by Pulse Oximetry 96 04/12/17 11:35 - exam: Present: testicular tenderness. Absent: scrotal swelling (left) Course - Reevaluation(s) Reevaluation #1: Nurse has contacted [facility] requesting abd CT report. Awaiting records. - Consultations Consultation #1: Have spoked with MARY Turner with the hospitalist services. Discussed pt cc, assessment, and lab. Pt condition is guarded at this time and hospitalist evaluation for admission is warranted at this time. Time: 16:06 Results - Labs CBC & BMP: 04/12/17 05:10 04/12/17 05:10 Lab Results: I have reviewed the patients labs Disposition Clinical Impression: Groin pain, Testicular pain, Nausea and vomiting, End stage renal disease Case discussed with: patient, patient's family Disposition: Still a Patient Condition: Guarded
[2017-04-11] MEDS ORDERED: GLUCAGON 1 MG VIAL IM PRN (16:44)
[2017-04-11] MEDS ORDERED: DEXTROSE 50% 25 GM/50 ML SYRINGE IV PRN (16:44)
[2017-04-11] MEDS ORDERED: HYDROmorphone 2 MG/1 ML VIAL IV PRN (16:53)
--- NOTE | 2017-04-11 16:59 | Hospitalist History & Physical ---
Assessment and Plan (1) Groin pain Status: Acute Current Visit: Yes (2) Abdominal pain Status: Acute Current Visit: No (3) CAD (coronary artery disease) Status: Acute Current Visit: No (4) Liver lesion Status: Acute Current Visit: No (5) Mediastinal adenopathy Status: Acute Current Visit: No (6) End stage renal disease on dialysis Problem details: Routine CHD tomorrow. UF to EDW as tolerated by hemodynamics. Status: Chronic Current Visit: No (7) Hypertension Status: Chronic Current Visit: No Qualifiers: Hypertension type: essential hypertension Qualified Code(s): I10 - Essential (primary) hypertension (8) Insulin dependent diabetes mellitus Status: Chronic Current Visit: No (9) Seizure disorder Status: Chronic Assessment and plan: Plan for this patient is going to admit him to our service. Will continue home meds as appropriate. Will have some IV pain medicine for breakthrough pain. Going to order a stat BMP. They did not draw this in the emergency room. He is diabetic. He is exquisitely tender on his left groin area. This is been ultrasound a few days ago. I will consult urology for their evaluation. Also patient is on dialysis will consult nephrology for to continue his hemodialysis Wednesday. Per review of the reports that I have. He does have some multiple nodular hyperintense lesions scattered throughout the liver mostly in the right hepatic lobe. They have been previously biopsied in August. The reports of the biopsy were granulomatous tissue. These lesions are continuing to grow. I will ask Dr. Borges to review his case and I am going to repeat his alpha-fetoprotein, CA 19-9 and CEA since previously they were high normal values. Current Visit: No History of Present Illness Chief complaint: Groin pain and lower abdominal pain History of present illness: Mr. Sam is a 41 year old male with past medical history significant for end- stage renal disease, coronary artery disease and seizure disorder who presents to our ER today. Patient said he was just discharged from our hospital 3 days ago. He was having scrotal pain at that time he said but it initially was not that bad. He went to see a doctor at [facility] Wednesday for the same pain. And he had a CT scan with IV contrast at that time. Patient presents saying that he has this pain in his lower abdomen and scrotal area. Patient reports that his scrotum is significantly tender on the left side. Patient tried to stay at home but could not find relief with his p.o. medications and came up to our hospital for further evaluation. This causes him to have nausea and vomiting. I was consulted to admit him. . Home Medications Medication Instructions Recorded Confirmed Type Dexlansoprazole [Dexilant] 60 mg PO DAILY 02/07/15 04/07/17 History Ranitidine Tab [Zantac Tab] 150 mg PO BID 02/07/15 04/07/17 History Fenofibrate [Tricor] 145 mg PO BEDTIME 03/10/16 04/07/17 History Levothyroxine Tab [Synthroid Tab] 75 mcg PO DAILY 03/10/16 04/07/17 History Linagliptin [Tradjenta] 5 mg PO QAM 03/10/16 04/07/17 History Metoprolol Succinate Xl [Toprol Xl] 100 mg PO DAILY 03/10/16 04/07/17 History Aspirin EC Tab 81 mg PO QAM 08/12/16 04/07/17 History Furosemide 80 mg PO BID 08/12/16 04/07/17 History Acetaminophen Tab [Tylenol Tab] 650 mg PO Q4H PRN #0 tablet 08/15/16 04/06/17 Rx Pregabalin [Lyrica] 150 mg PO BID 09/29/16 04/07/17 History Atorvastatin [Lipitor] 20 mg PO BEDTIME 04/06/17 04/07/17 History Insulin Aspart [NovoLOG] See Protocol SUBCUT BID 04/06/17 04/07/17 History Sucroferric Oxyhydroxide [Velphoro 500 mg PO DAILY 04/06/17 04/07/17 History Chew Tab] levETIRAcetam [Keppra] 1,500 mg PO BID 04/06/17 04/07/17 History predniSONE TAB [PredniSONE] 10 mg PO DAILY 04/06/17 04/07/17 History Duloxetine HCl [Cymbalta] 60 mg PO DAILY 04/07/17 04/07/17 History Oxycodone HCl/Acetaminophen 1 each PO Q4H PRN #20 04/08/17 04/07/17 Rx [Percocet 7.5-325 mg Tablet] Allergies Allergy/AdvReac Type Severity Reaction Status Date / Time tramadol [From Ultram] AdvReac Severe Seizure Verified 04/11/17 11:24 hydrocodone AdvReac Intermediate Vomiting Verified 04/11/17 11:24 sulfamethoxazole AdvReac Mild KIDNEY Verified 04/11/17 11:24 [From Bactrim] REACTION STATED BY PT MOTHER trimethoprim [From Bactrim] AdvReac Mild KIDNEY Verified 04/11/17 11:24 REACTION STATED BY PT MOTHER Medical,Surgical,& Family Hx - Medical History Cardio: History of: Cerebrovascular Disease, CAD (stent x 2), Hypertension, [place] ( 2012) Psychological: History of: Depression Neurology: History of: Migraine, Peripheral Neuropathy, Seizures No history of: Cerebrovascular Accident HEENT: History of: Ear Problem (LOST HEARING OUT OF RIGHT EAR POSS DUE TO NERVE DAMAGE STATES PT. 3YEAR AGO) Endocrine: History of: Diabetes Mellitus (IDDM), Diabetes Mellitus (NIDDM), Dyslipidemia, Thyroid Disorder (UNDERACTIVE THYROID PROBLEMS) Respiratory: History of: Obstructive Sleep Apnea, Pneumonia Comment Only: Respiratory Problems (MEDIASTINOSCOPY) Renal: History of: Dialysis (M,W,F) Genitourinary: History of: Kidney Stones Gastrointestinal: History of: GERD, Hemorrhoids, Liver Problems (biopsy ok), Pancreatitis, GI Problems (NAUSEA AND VOMITING) Musculoskeletal: History of: Back/Neck Problems, Musculoskeletal Problems Other: History of: Miscellaneous Medical Problems (SARCOIDOSIS) - Surgical History Cardiac Surgeries: Sugical HX of: Cardiac Catheterization, Vascular Access Devices (fistula 2014) Thoracic Surgeries: Surgical HX of;: Lithotripsy (02/16/15) HEENT Surgeries: Surgical HX of: Eye Surgery (LASER SURGERY 2013) Abdominal Surgeries: Surgical HX of: Colonoscopy Reproductive Surgeries: Surgical HX of;: Genitourinary Surgery Orthopedic Surgeries: Surgical HX of;: Orthopedic Surgery (hip surgery secondary to fracture) - Family History Family History: Reports;: Family Diabetes (FATHER), Family Hypertension (MOTHER , FATHER, GRANDPARNENTS MATERNAL AND PATERNAL) Comment Only: Family Cancer (maternal grandfather(prostate)), Family Stroke ( Maternal grandmother) - Social History Smoking Status: Former smoker Frequency of Alcohol Use: None Type of Drug Use: None 12 point system: reviewed and no additional remarkable complaints except as stated Exam - Constitutional Vitals: Period Temp Pulse Resp BP Sys/Briseno Pulse Ox Last 24 Hr 97 F-97.0 F 75-77 18-18 136-151/75-98 97 General appearance: over weight - Head Head exam: Present: normal inspection - Eye Eye exam: Present: EOMI Pupils: Present: NAKUL - ENT ENT exam: Present: normal exam - Neck Neck exam: Present: normal inspection - Respiratory Respiratory exam: Present: clear to auscultation bilaterally - Cardiovascular Cardiovascular exam: Present: regular rate and rhythm - GI/Abdominal GI/Abdominal exam: Present: normal bowel sounds, tenderness (In lower left quadrant), other (Patient's left testicle is tender) - Extremities Exam Extremities exam: Present: normal inspection - Back Exam Back exam: Present: normal inspection - Neurological Exam Neurological exam: Present: alert, oriented X3 - Psychiatric Psychiatric exam: Present: normal affect, normal mood - Skin Skin exam: Present: normal color Results - Labs CBC & BMP: 04/11/17 14:12
[2017-04-11 19:14] LABS: AFP Tumor 3.4 NG/ML (0-8); Cancer Antigen 19-9 19.9 U/ML (0-37); Carcinoembryonic Antigen 8.3 NG/ML (0.0-5.0)
[2017-04-11 20:29] LABS: Calcium 8.3 MG/DL (8.5-10.1); Magnesium 2.6 MG/DL (1.8-2.4); Osmolality,Calculated 282.1 MOS/KG (273-304); Potassium 4.5 MMOL/L (3.5-5.1)
[2017-04-11] MEDS: FENOFIBRATE 145 MG TABLET PO SCH (20:47)
[2017-04-11] MEDS: INSULIN REGULAR 100 UNIT/ML SUBCUT SCH (20:47)
[2017-04-11] MEDS: levETIRAcetam 500 MG TABLET PO SCH (20:47)
[2017-04-11] MEDS: ATORVASTATIN 20 MG TABLET PO SCH (20:47)
[2017-04-11] MEDS: PREGABALIN 75 MG CAPSULE PO SCH (20:47)
[2017-04-12] MEDS: oxyCODONE/ACETAMINOPHEN 5-325 MG TABLET PO PRN ×3 (03:25→18:01)
[2017-04-12 06:10] LABS: Basophils # 0.1 10*3/uL (0.0-0.2); Basophils % 0.5 % (0.0-0.8); Eosinophils # 0.2 10*3/uL (0.0-0.87); Eosinophils % 1.6 % (0.00-10.9); Hematocrit 29.4 VOL% (42.0-52.0); Hemoglobin 9.8 GM/DL (14.0-18.0); Immature Granulocytes % 0.8 %; Immature Granulocytes Absolute 0.08 #; Lymphocytes # 1.4 10*3/uL (1.4-4.0); Lymphocytes % 14.6 % (21.2-54.2); Mean Corpuscular HGB Conc 33.3 GM/DL (32-36); Mean Corpuscular Hemoglobin 30 PG (27-34); Mean Platelet Volume 11.3 FL (9.6-12.0); Monocytes # 0.8 10*3/uL (0.11-0.8); Monocytes % 8.7 % (1.7-12.7); Neutrophils # 7.1 10*3/uL (1.4-7.4); Neutrophils % 73.8 % (38.7-73.9); Platelet Count 155 T/CUMM (130-400); Red Blood Count 3.23 MC/CUMM (3.8-5.5); Red Cell Distribution Width 13.2 % (9.3-17.3); White Blood Count 9.6 T/CUMM (4-12)
[2017-04-12 06:41] LABS: Calcium 8.6 MG/DL (8.5-10.1); Osmolality,Calculated 281.4 MOS/KG (273-304); Potassium 4.8 MMOL/L (3.5-5.1)
[2017-04-12] MEDS: INSULIN REGULAR 100 UNIT/ML SUBCUT SCH ×4 (08:50→21:20)
[2017-04-12] MEDS: levETIRAcetam 500 MG TABLET PO SCH ×2 (08:51→21:19)
[2017-04-12] MEDS: sitaGLIPtin 25 MG TABLET PO SCH (08:51)
[2017-04-12] MEDS: PREGABALIN 75 MG CAPSULE PO SCH ×2 (08:51→21:19)
[2017-04-12] MEDS: LEVOTHYROXINE 75 MCG TABLET PO SCH (08:51)
[2017-04-12] MEDS: DULoxetine 30 MG CAPSULE PO SCH (08:52)
[2017-04-12] MEDS: METOPROLOL SUCCINATE XL 100 MG TABLET PO SCH (08:52)
[2017-04-12] MEDS: ASPIRIN EC 81 MG TABLET PO SCH (08:52)
[2017-04-12] MEDS: predniSONE 10 MG TABLET PO SCH (08:53)
[2017-04-12] MEDS: FUROSEMIDE 80 MG TABLET PO SCH ×2 (08:53→18:01)
[2017-04-12] MEDS ORDERED: NON-FORMULARY MEDICATION (Sucroferric Oxyhydroxide [Velphoro Chew Tab] 500 MG) PO SCH (09:00)
[2017-04-12] MEDS ORDERED: PANTOPRAZOLE 40 MG TABLET PO SCH ×2 (09:00)
--- NOTE | 2017-04-12 12:17 | Urology Consultation ---
History of Present Illness - Data of Consult Consult date: 04/12/17 - Consult Narrative History of present illness: Mr. Sam is a 41 year old male This 41-year-old white male is seen in consultation because of pain in the left lower quadrant left groin and left testicle. The patient has had this for about a month and has been evaluated in the emergency room here in the hospital [facility] and in [place]. The patient is on renal dialysis and has has had a past history of stones. He has had a negative scrotal ultrasound earlier this month in the emergency room and he has had a CT scan without contrast here and a CT scan with contrast in [place]. There was no evidence of a hernia and he is got multiple lesions in the liver and retroperitoneal adenopathy. And previous hospital notes indicates that he has had liver biopsies in the past that shows these lesions are benign. There was no evidence of renal or ureteral stone or hydronephrosis patient has some red blood cells in his urine mild pyuria but his urine culture is negative at 24 hour on physical examination the patient's abdomen is distended it is soft nontender there are no masses the scrotal examination is negative and there is no evidence of hernia. I am not able to explain the patient's pain in the left testicle but am encouraged by the fact that all of his studies or normal. At this point I would recommend symptomatic treatment and continued observation I am going to order a screening baseline PSA CC: Elan Quinones MD - Home Medications and Allergies Home Medications: Home Medications Medication Instructions Recorded Confirmed Type Dexlansoprazole [Dexilant] 60 mg PO QAM 02/07/15 04/11/17 History Ranitidine Tab [Zantac Tab] 150 mg PO BID 02/07/15 04/11/17 History Fenofibrate [Tricor] 145 mg PO BEDTIME 03/10/16 04/11/17 History Levothyroxine Tab [Synthroid Tab] 75 mcg PO QAM 03/10/16 04/11/17 History Linagliptin [Tradjenta] 5 mg PO QAM 03/10/16 04/11/17 History Metoprolol Succinate Xl [Toprol Xl] 100 mg PO QAM 03/10/16 04/11/17 History Aspirin EC Tab 81 mg PO QAM 08/12/16 04/11/17 History Furosemide 80 mg PO BID 08/12/16 04/11/17 History Pregabalin [Lyrica] 150 mg PO BID 09/29/16 04/11/17 History Atorvastatin [Lipitor] 20 mg PO BEDTIME 04/06/17 04/11/17 History Insulin Aspart [NovoLOG] See Protocol SUBCUT BID 04/06/17 04/11/17 History Sucroferric Oxyhydroxide [Velphoro 500 mg PO DAILY 04/06/17 04/11/17 History Chew Tab] levETIRAcetam [Keppra] 1,500 mg PO BID 04/06/17 04/11/17 History predniSONE TAB [PredniSONE] 10 mg PO QAM 04/06/17 04/11/17 History Duloxetine HCl [Cymbalta] 60 mg PO QAM 04/07/17 04/11/17 History Oxycodone HCl/Acetaminophen 1 each PO Q4H PRN #20 04/08/17 04/11/17 Rx [Percocet 7.5-325 mg Tablet] Allergies/Adverse Reactions: Allergies Allergy/AdvReac Type Severity Reaction Status Date / Time tramadol [From Ultram] AdvReac Severe Seizure Verified 04/11/17 11:24 hydrocodone AdvReac Intermediate Vomiting Verified 04/11/17 11:24 sulfamethoxazole AdvReac Mild KIDNEY Verified 04/11/17 11:24 [From Bactrim] REACTION STATED BY PT MOTHER trimethoprim [From Bactrim] AdvReac Mild KIDNEY Verified 04/11/17 11:24 REACTION STATED BY PT MOTHER Exam - Constitutional Vitals: Period Temp Pulse Resp BP Sys/Briseno Pulse Ox Last 24 Hr 96.7 F-98.7 F 71-79 18-20 122-163/73-98 92-99 Results - Labs CBC & BMP: 04/12/17 05:10 04/12/17 05:10
--- NOTE | 2017-04-12 12:27 | Nephrology Consult Note ---
<Navid Ann - Last Filed: 04/12/17 12:24> History of Present Illness Chief complaint: Nausea vomiting and abdominal pain History of present illness: Mr. Sam is a 41 year old male with end-stage renal disease who dialyzes on a Wednesday basis in [facility]. The patient's last dialysis was this past Wednesday. The patient is admitted at this time for the aforementioned complaints. The patient was just discharged from the hospital a few days ago for similar complaints however he did not have vomiting at that time. The patient has had an extensive workup for this complaint as outlined by Dr. Candelaria. His workup to this point has been unremarkable for any explanation to his current pain complaints. Patient states his nausea and vomiting are better but he continues to have pain. It is some improved with the IV analgesics. The patient describes having a CT scan done this past Wednesday at [facility]. Patient states he was having some fever and chills associated with this nausea and vomiting the night before he was admitted. ROS: Head -positive migraine headaches ENT - denies sore throat Lymphatics - denies lymphadenopathy Hematology - denies bleeding problems Heart -complains of right sided chest pain Lungs - denies shortness of breath Abdomen -see HPI Musculoskeletal -complains of arthritis in about every joint that he has Skin - denies rash Neurology - denies stroke, has a history of strokes General -see HPI PE: General: in no acute distress Eyes: Pupils are round and reactive, conjunctivae are clear ENT: Nose is clear, O/P is benign Neck: Supple, no thyromegaly Lymphatics: No cervical, supraclavicular or axillary adenopathy Heart: Regular rate and rhythm, no edema Lungs: Clear to auscultation anteriorly, chest expansion symmetric Abdomen: Soft, normoactive bowel sounds, no hepatomegaly Musculoskeletal: No joint erythema or effusions or joint asymmetry Skin: Normal turgor, normal hydration, no rash Neuro/Psych: Alert and cooperative with fair insight Home Medications Medication Instructions Recorded Confirmed Type Dexlansoprazole [Dexilant] 60 mg PO QAM 02/07/15 04/11/17 History Ranitidine Tab [Zantac Tab] 150 mg PO BID 02/07/15 04/11/17 History Fenofibrate [Tricor] 145 mg PO BEDTIME 03/10/16 04/11/17 History Levothyroxine Tab [Synthroid Tab] 75 mcg PO QAM 03/10/16 04/11/17 History Linagliptin [Tradjenta] 5 mg PO QAM 03/10/16 04/11/17 History Metoprolol Succinate Xl [Toprol Xl] 100 mg PO QAM 03/10/16 04/11/17 History Aspirin EC Tab 81 mg PO QAM 08/12/16 04/11/17 History Furosemide 80 mg PO BID 08/12/16 04/11/17 History Pregabalin [Lyrica] 150 mg PO BID 09/29/16 04/11/17 History Atorvastatin [Lipitor] 20 mg PO BEDTIME 04/06/17 04/11/17 History Insulin Aspart [NovoLOG] See Protocol SUBCUT BID 04/06/17 04/11/17 History Sucroferric Oxyhydroxide [Velphoro 500 mg PO DAILY 04/06/17 04/11/17 History Chew Tab] levETIRAcetam [Keppra] 1,500 mg PO BID 04/06/17 04/11/17 History predniSONE TAB [PredniSONE] 10 mg PO QAM 04/06/17 04/11/17 History Duloxetine HCl [Cymbalta] 60 mg PO QAM 04/07/17 04/11/17 History Oxycodone HCl/Acetaminophen 1 each PO Q4H PRN #20 04/08/17 04/11/17 Rx [Percocet 7.5-325 mg Tablet] Allergies Allergy/AdvReac Type Severity Reaction Status Date / Time tramadol [From Ultram] AdvReac Severe Seizure Verified 04/11/17 11:24 hydrocodone AdvReac Intermediate Vomiting Verified 04/11/17 11:24 sulfamethoxazole AdvReac Mild KIDNEY Verified 04/11/17 11:24 [From Bactrim] REACTION STATED BY PT MOTHER trimethoprim [From Bactrim] AdvReac Mild KIDNEY Verified 04/11/17 11:24 REACTION STATED BY PT MOTHER Medical,Surgical,& Family Hx - Medical History Cardio: History of: Cerebrovascular Disease, CAD (stent x 2), Hypertension, [place] ( 2012) Psychological: History of: Depression Neurology: History of: Migraine, Peripheral Neuropathy, Seizures No history of: Cerebrovascular Accident HEENT: History of: Ear Problem (LOST HEARING OUT OF RIGHT EAR POSS DUE TO NERVE DAMAGE STATES PT. 3YEAR AGO) Endocrine: History of: Diabetes Mellitus (IDDM), Diabetes Mellitus (NIDDM), Dyslipidemia, Thyroid Disorder (UNDERACTIVE THYROID PROBLEMS) Respiratory: History of: Obstructive Sleep Apnea, Pneumonia Comment Only: Respiratory Problems (MEDIASTINOSCOPY) Renal: History of: Dialysis (M,W,F) Genitourinary: History of: Kidney Stones Gastrointestinal: History of: GERD, Hemorrhoids, Liver Problems (biopsy ok), Pancreatitis, GI Problems (NAUSEA AND VOMITING) Musculoskeletal: History of: Back/Neck Problems, Musculoskeletal Problems Other: History of: Miscellaneous Medical Problems (SARCOIDOSIS) - Surgical History Cardiac Surgeries: Sugical HX of: Cardiac Catheterization, Vascular Access Devices (fistula 2014) Thoracic Surgeries: Surgical HX of;: Lithotripsy (02/16/15) HEENT Surgeries: Surgical HX of: Eye Surgery (LASER SURGERY 2013) Abdominal Surgeries: Surgical HX of: Colonoscopy Reproductive Surgeries: Surgical HX of;: Genitourinary Surgery Orthopedic Surgeries: Surgical HX of;: Orthopedic Surgery (hip surgery secondary to fracture) - Family History Family History: Reports;: Family Diabetes (FATHER), Family Hypertension (MOTHER , FATHER, GRANDPARNENTS MATERNAL AND PATERNAL) Comment Only: Family Cancer (maternal grandfather(prostate)), Family Stroke ( Maternal grandmother) - Social History Smoking Status: Former smoker Frequency of Alcohol Use: None Type of Drug Use: None Exam - Vital Signs Vital signs: Period Temp Pulse Resp BP Sys/Rbiseno Pulse Ox Last 24 Hr 96.7 F-98.7 F 71-79 18-20 122-163/73-98 92-99 Results - Labs CBC & BMP: 04/12/17 05:10 04/12/17 05:10 Assessment and Plan (1) Groin pain Status: Acute Assessment and plan: We will try and get the report from the CT scan done at [facility] this past Wednesday Current Visit: Yes (2) Anemia Status: Acute Assessment and plan: Patient's hematocrit around 29%, will continue EPO on dialysis Current Visit: No (3) Diabetes Status: Chronic Current Visit: No Qualifiers: Diabetes mellitus type: type 2 Diabetes mellitus complication status: with kidney complications Diabetes mellitus complication detail: with nephropathy (4) End stage renal disease Status: Chronic Assessment and plan: We will plan on hemodialysis today and Wednesday thereafter Current Visit: No (5) Hypertension Status: Chronic Current Visit: No Qualifiers: Hypertension type: essential hypertension Qualified Code(s): I10 - Essential (primary) hypertension (6) Seizure disorder Status: Chronic Current Visit: No <TungNeo - Last Filed: 04/12/17 13:50> History of Present Illness History of present illness: Mr. Sam is a 41 year old male Exam - Vital Signs Vital signs: Period Temp Pulse Resp BP Sys/Briseno Pulse Ox Last 24 Hr 96.7 F-98.7 F 71-79 18-20 122-163/73-87 92-99 Results - Labs CBC & BMP: 04/12/17 05:10 04/12/17 05:10
[2017-04-12] MEDS ORDERED: EPOETIN ALFA 10,000 UNIT/1 ML VIAL IV PRN (12:30)
[2017-04-12] MEDS: LIDOCAINE/PRILOCAINE CREAM 5 GM TUBE TOP PRN (12:49)
[2017-04-12 12:50] LABS: Hepatitis A Ab IgM Quant 0.13 Index; Hepatitis A Ab IgM Result Negative (Negative); Hepatitis B Core IgM Quant 0.07 Index; Hepatitis B Core IgM Result Negative (Negative); Hepatitis B Surface Ag Quant < 0.10 Index; Hepatitis B Surface Ag Result Negative (Negative); Hepatitis C Virus Ab Result Negative (Negative)
--- NOTE | 2017-04-12 13:52 | Hospitalist Progress Note ---
Assessment and Plan (1) Testicular/scrotal pain Status: Acute Assessment and plan: Gentleman is an ultrasound of the testicles as well as of the scrotal contents also do a duplex to make sure that there is no vascular compromise with torsion. I will also get a urology consult Current Visit: Yes (2) Chronic back pain Status: Acute Assessment and plan: Continue analgesia as now; this is a chronic complaint. Current Visit: Yes (3) Rectal mass Status: Acute Assessment and plan: This in conjunction with hepatic lesions suggestive of colon malignancy. The only thing that does not make sense to me that is no medical oncology given consultation on this case on this admission. Will await GI findings. Notes elevated CEA antigen levels Current Visit: No Hospitalist: Subjective Interval history: Patient has been seen interviewed and examined and chart has been reviewed. Mr. Sam is admitted overnight with complaints of scrotal pain. Most on the right side. Claims he had a CT scan done in [place] give us the name of the doctor and the nurse will call that office for report of findings of that CT scan. He claims he does not know what it was on the CT scan. Correlate to send him home before the results. Indicates he has not had an ultrasound he is on ultrasound of the testicles and scrotal contents including Doppler will be done today. This gentleman also gives a history of chronic back pain on Percocet. He is very sleepy and with ataxia because he has taken his medications as he says. Concern about possibility of substance use diversion. Give pain medication judiciously while he is here. He denies any history of malignant disease in the past and history of traumatic fracture of the right hip and pleural for which she is using opioids. This gentleman also has a history of a rectal mass and a CT scan done in the near past did show multiple hepatic lesions are increasing in size according to the preceding notes. Is more than likely is going to be metastatic colorectal carcinoma. He needs to be verified. Admission on the did draw a CEA that shows elevation of CA19-9 is not elevated. I do not see any documentation of chemo therapy or otherwise. Exam - Constitutional Vitals: Period Temp Pulse Resp BP Sys/Briseno Pulse Ox Last 24 Hr 96.7 F-98.7 F 71-79 18-20 122-163/73-87 92-99 General appearance: over weight - Head Head exam: Present: normocephalic, atraumatic, other (Male pattern baldness) - Eye Eye exam: Present: EOMI Pupils: Present: NAKUL - Respiratory Respiratory exam: Present: clear to auscultation bilaterally - Cardiovascular Cardiovascular exam: Present: regular rate and rhythm - GI/Abdominal GI/Abdominal exam: Present: normal bowel sounds, soft, other (Very tender in the left testicle and above the scrotal contents leading to the left suprapubic region no obvious hernias) - Extremities Exam Extremities exam: Present: other (Staggering gait) - Neurological Exam Neurological exam: Present: alert, oriented X3, CN II-XII intact, other ( Patient is very drowsy) - Psychiatric Psychiatric exam: Present: other - Skin Skin exam: Present: normal color (Very dry), warm, dry Results - Labs CBC & BMP: 04/12/17 05:10 04/12/17 05:10 Lab Results: I have reviewed the past 24 hour labs (End-stage renal disease on dialysis. He acknowledges chills at home but no documentation of fever)
--- NOTE | 2017-04-12 14:24 | Nephrology Progress Note ---
Nephrology - PN: Subj Interval history: Patient is seen on hemodialysis, he is tolerating this well will continue his treatment unchanged. Exam (PN)-Nephrology - Vital Signs Vital signs: Period Temp Pulse Resp BP Sys/Briseno Pulse Ox Last 24 Hr 96.7 F-98.7 F 71-79 18-20 122-163/73-87 92-99 - Lab 04/12/17 05:10 04/12/17 05:10 Most recent lab results Calcium 8.6 MG/DL (8.5-10.1) 04/12/17 05:10 Magnesium 2.6 MG/DL (1.8-2.4) H 04/11/17 19:38 Assessment and Plan (1) Groin pain Status: Acute Assessment and plan: We will try and get the report from the CT scan done at [facility] this past Wednesday Current Visit: Yes (2) Anemia Status: Acute Assessment and plan: Patient's hematocrit around 29%, will continue EPO on dialysis Current Visit: No (3) Diabetes Status: Chronic Current Visit: No Qualifiers: Diabetes mellitus type: type 2 Diabetes mellitus complication status: with kidney complications Diabetes mellitus complication detail: with nephropathy (4) End stage renal disease Status: Chronic Assessment and plan: We will plan on hemodialysis today and Wednesday thereafter Current Visit: No (5) Hypertension Status: Chronic Current Visit: No Qualifiers: Hypertension type: essential hypertension Qualified Code(s): I10 - Essential (primary) hypertension (6) Seizure disorder Status: Chronic Current Visit: No
--- NOTE | 2017-04-12 20:07 | Gastrointestinal Consult Note ---
Assessment and Plan (1) Hepatic granuloma associated with sarcoidosis Status: Acute Assessment and plan: These liver lesions have been biopsied and worked up. They represent the patient's hepatic sarcoidosis which is seen in approximately 65% of patients with sarcoidosis. Patient's liver function tests have always been normal in the past will need to recheck these to see if increasing prednisone will be necessary. From a liver standpoint, this is usually necessary when there is biliary obstruction from the hepatic granuloma--usually from enlarging hilar granuloma. Acute treatment usually requires prednisone 30-40 mg per day and then taper down to his present dose of 10 mg per day. Again, this will not likely not be required if his liver function tests are within normal limits or only mildly elevated. Treatment will rarely result in failures of glucocorticoid to suppress the sarcoidosis in which case methotrexate can be attempted. Usually this would require referral to a welder plasma [facility] as I personally would not feel comfortable treating him with this immunosuppressant agent locally. The patient's also agrees that she would like to be referred to welder plasma arc if first-line therapies fail. Patients with hepatic sarcoidosis developed cirrhosis in about 6% of cases. Current Visit: Yes (2) Anemia Status: Acute Assessment and plan: This patient has mild anemia with hematocrit at 29% not unexpected for a dialysis patient. He may also have bone marrow that has been affected by the granulomas caused by sarcoid throughout his body. This could be confirmed with bone marrow biopsy if symptoms worsen. There does not appear to be any GI bleeding. This patient had last undergone upper endoscopy by Dr. Cota on at which time he was noted to have some gastroparesis and reflux as well as a hiatal hernia but no other specific bleeding lesions were noted. He had previously undergone flexible sigmoidoscopy as well back in January 2015 which proved to be normal and no evidence of rectal mass was seen as had been expected from prior CT scanning. No further GI workup is required endoscopically for the anemia. Current Visit: No (3) GERD (gastroesophageal reflux disease) Status: Acute Assessment and plan: The patient is previously undergone upper endoscopy back in [address] Cota which did demonstrate, as mentioned above, a hiatal hernia, and some gastroparesis. He is currently on a medication that blocks the acid in the stomach effectively 18 hours of the day and still having to use Zantac as well for further relief. I suspect he actually has gastroparesis as the cause for his bloating and reflux symptoms. I would like to make the diagnosis of gastroparesis while he is here and so we will order a gastric emptying study for tomorrow. He may benefit more from treatment with erythromycin or Reglan if the diagnosis can be made definitively. Current Visit: No History of Present Illness Chief complaint: History of hepatic granulomas, enlargement recently History of present illness: Mr. Sam is a 41 year old male Who was previously asked to see back in noted to have a history of seizure disorder, hypertension, diabetes, chronic renal dysfunction currently on dialysis with hyperlipidemia coronary artery disease who been seen at that time with subjective shortness of breath, sweats and difficulty with reflux requiring a combination of Dexilant and Zantac. He is currently not having any problems at this point. Patient had previously undergone a CT scan of the abdomen which demonstrated multiple masses in his liver some as large as 3 cm which then resulted in liver biopsy. Liver biopsy demonstrated noncaseating granulomas suspicious for sarcoid and this diagnosis was confirmed on mediastinal biopsy. The patient has been treated since that time with steroids and is currently following with Dr. Rodriguez with a prednisone daily usage of 10 mg. He does not have shortness of breath at this time his major complaint is one of left lower quadrant pain radiating down into his testicle for which he is seeing Dr. Candelaria. I should not be surprised if his sarcoidosis has gotten worse over time and respect to lesions within the liver. These are not cancer. He has been checked with multiple cancer antigens in the past and these have all been negative (CA 19-9, CEA level, AFP levels all within normal limits). I do not see a set of liver function tests from this visit but I am ordering these now. The patient seems dysphoric but otherwise is without pain or other GI complaint. This patient had last undergone upper endoscopy by Dr. Cota on 12/04/13 at which time he was noted to have some gastroparesis and reflux as well as a hiatal hernia but no other specific bleeding lesions were noted. He had previously undergone flexible sigmoidoscopy as well back in January 2015 which proved to be normal and no evidence of rectal mass was seen as had been expected from prior CT scanning. Home Medications Medication Instructions Recorded Confirmed Type Dexlansoprazole [Dexilant] 60 mg PO QAM 02/07/15 04/11/17 History Ranitidine Tab [Zantac Tab] 150 mg PO BID 02/07/15 04/11/17 History Fenofibrate [Tricor] 145 mg PO BEDTIME 03/10/16 04/11/17 History Levothyroxine Tab [Synthroid Tab] 75 mcg PO QAM 03/10/16 04/11/17 History Linagliptin [Tradjenta] 5 mg PO QAM 03/10/16 04/11/17 History Metoprolol Succinate Xl [Toprol Xl] 100 mg PO QAM 03/10/16 04/11/17 History Aspirin EC Tab 81 mg PO QAM 08/12/16 04/11/17 History Furosemide 80 mg PO BID 08/12/16 04/11/17 History Pregabalin [Lyrica] 150 mg PO BID 09/29/16 04/11/17 History Atorvastatin [Lipitor] 20 mg PO BEDTIME 04/06/17 04/11/17 History Insulin Aspart [NovoLOG] See Protocol SUBCUT BID 04/06/17 04/11/17 History Sucroferric Oxyhydroxide [Velphoro 500 mg PO DAILY 04/06/17 04/11/17 History Chew Tab] levETIRAcetam [Keppra] 1,500 mg PO BID 04/06/17 04/11/17 History predniSONE TAB [PredniSONE] 10 mg PO QAM 04/06/17 04/11/17 History Duloxetine HCl [Cymbalta] 60 mg PO QAM 04/07/17 04/11/17 History Oxycodone HCl/Acetaminophen 1 each PO Q4H PRN #20 04/08/17 04/11/17 Rx [Percocet 7.5-325 mg Tablet] Allergies Allergy/AdvReac Type Severity Reaction Status Date / Time tramadol [From Ultram] AdvReac Severe Seizure Verified 04/11/17 11:24 hydrocodone AdvReac Intermediate Vomiting Verified 04/11/17 11:24 sulfamethoxazole AdvReac Mild KIDNEY Verified 04/11/17 11:24 [From Bactrim] REACTION STATED BY PT MOTHER trimethoprim [From Bactrim] AdvReac Mild KIDNEY Verified 04/11/17 11:24 REACTION STATED BY PT MOTHER Medical,Surgical,& Family Hx - Medical History Cardio: History of: Cerebrovascular Disease, CAD (stent x 2), Hypertension, [place] ( 2013) Psychological: History of: Depression Neurology: History of: Migraine, Peripheral Neuropathy, Seizures No history of: Cerebrovascular Accident HEENT: History of: Ear Problem (LOST HEARING OUT OF RIGHT EAR POSS DUE TO NERVE DAMAGE STATES PT. 3YEAR AGO) Endocrine: History of: Diabetes Mellitus (IDDM), Diabetes Mellitus (NIDDM), Dyslipidemia, Thyroid Disorder (UNDERACTIVE THYROID PROBLEMS) Respiratory: History of: Obstructive Sleep Apnea, Pneumonia Comment Only: Respiratory Problems (MEDIASTINOSCOPY) Renal: History of: Dialysis (M,W,F) Genitourinary: History of: Kidney Stones Gastrointestinal: History of: GERD, Hemorrhoids, Liver Problems (biopsy ok), Pancreatitis, GI Problems (NAUSEA AND VOMITING) Musculoskeletal: History of: Back/Neck Problems, Musculoskeletal Problems Other: History of: Miscellaneous Medical Problems (SARCOIDOSIS) - Surgical History Cardiac Surgeries: Sugical HX of: Cardiac Catheterization, Vascular Access Devices (fistula 2014) Thoracic Surgeries: Surgical HX of;: Lithotripsy (02/16/15) HEENT Surgeries: Surgical HX of: Eye Surgery (LASER SURGERY 2013) Abdominal Surgeries: Surgical HX of: Colonoscopy Reproductive Surgeries: Surgical HX of;: Genitourinary Surgery Orthopedic Surgeries: Surgical HX of;: Orthopedic Surgery (hip surgery secondary to fracture) - Family History Family History: Reports;: Family Diabetes (FATHER), Family Hypertension (MOTHER , FATHER, GRANDPARNENTS MATERNAL AND PATERNAL) Comment Only: Family Cancer (maternal grandfather(prostate)), Family Stroke ( Maternal grandmother) - Social History Smoking Status: Former smoker Frequency of Alcohol Use: None Type of Drug Use: None Review of systems: Constitutional: Denies fever, chills, nausea, and vomiting Eyes: Denies dry eyes, and scleral icterus HENT: Denies headaches Cardiovascular: Denies acute chest pain and claudication Respiratory: Denies shortness of breath, wheezing, and difficulty breathing, denies cough Gastrointestinal: As noted in the HPI Genitourinary: Denies dysuria and hematuria Neurologic: Denies vision loss, and loss of sensation Musculoskeletal: Admits to some joint stiffness, and muscular weakness, but no joint swelling Psychiatric: Some depression but no brennon symptoms Heme-Lymph: Denies easy bruising, lymph node enlargement or tenderness, night sweats, excessive bleeding Allergies-immunologic: Denies pruritus and rhinorrhea Exam - Constitutional Vitals: Period Temp Pulse Resp BP Sys/Briseno Pulse Ox Last 24 Hr 96.7 F-98.6 F 71-79 18-20 122-163/73-94 92-99 General appearance: mild distress Exam: Constitutional: Well-developed, well-nourished, obese white male, alert, and in no acute distress Head and face: Head: Normocephalic atraumatic Eyes: Conjunctiva without injection, no gross scleral icterus, pupils equal and round bilaterally Ears: Intact to conversation in both ears Nose: External appearance is normal, nares patent Mouth: Oral mucous membranes moist without erythema dentition noted to be without erosion Neck: Normal appearance, no masses or tenderness, trachea midline Thyroid: Gland midline and appropriate size for age Respiratory: Normal respiratory effort, clear to auscultation without wheezes, rhonchi or rales Cardiovascular: Regular rate and rhythm, normal S1, S2, the exam is without rubs, murmurs or gallops. Gastrointestinal: Patient is experiencing mild to moderate tenderness to palpation in the left lower quadrant, normal active bowel sounds, tone normal without rigidity or guarding, no masses present, no hepatomegaly, no spleen tip felt. No rectal exam obtained. Lymphatic: Neck without adenopathy, axilla without lymphadenopathy present Musculoskeletal: Right and left lower extremities without evidence of edema Skin and subcutaneous tissue: No rashes or ulcerations noted, normal skin turgor, digits and nails without clubbing/cyanosis/deformities. Neurologic: The patient is grossly oriented to person place and time, cranial nerves show tongue movements are normal with normal tongue extrusion midline, light touch sensation is intact. Psychiatric: No hallucinations or delusions are present, does not appear depressed Results - Labs CBC & BMP: 04/12/17 05:10 04/12/17 05:10
[2017-04-12 20:38] LABS: Albumin 2.8 G/DL (3.4-5.0); Bilirubin,Direct 0.2 MG/DL (0.0-0.20); Bilirubin,Indirect 0.3 MG/DL (0.0-1.0); Bilirubin,Total 0.5 MG/DL (0.2-1.0); Total Protein 6.4 G/DL (6.4-8.3)
[2017-04-12] MEDS: ATORVASTATIN 20 MG TABLET PO SCH (21:19)
[2017-04-12] MEDS: FENOFIBRATE 145 MG TABLET PO SCH (21:20)
[2017-04-12] MEDS: PANTOPRAZOLE 40 MG TABLET PO SCH (21:20)
[2017-04-13] MEDS: oxyCODONE/ACETAMINOPHEN 5-325 MG TABLET PO PRN ×2 (02:18→12:54)
--- NOTE | 2017-04-13 06:42 | Gastrointestinal Progress Note ---
Assessment and Plan (1) Hepatic granuloma associated with sarcoidosis Status: Acute Assessment and plan: These liver lesions have been biopsied and worked up. They represent the patient's hepatic sarcoidosis which is seen in approximately 65% of patients with sarcoidosis. Patient's liver function tests have always been normal in the past will need to recheck these to see if increasing prednisone will be necessary. From a liver standpoint, this is usually necessary when there is biliary obstruction from the hepatic granuloma--usually from enlarging hilar granuloma. Acute treatment usually requires prednisone 30-40 mg per day and then taper down to his present dose of 10 mg per day. Again, this will not likely not be required if his liver function tests are within normal limits or only mildly elevated. Treatment will rarely result in failures of glucocorticoid to suppress the sarcoidosis in which case methotrexate can be attempted. Usually this would require referral to a cleaning associate as I personally would not feel comfortable treating him with this immunosuppressant agent locally. The patient's also agrees that she would like to be referred to cleaning associate if first-line therapies fail. Patients with hepatic sarcoidosis developed cirrhosis in about 6% of cases. 04/13/17--Liver function tests are essentially normal with an ALT that is actually low at 15, AST of 19, alkaline phosphatase of 56 and a bilirubin of 0.5. These indicate the patient's liver is not being affected significantly by the granulomata buildup caused by sarcoid. There is no indication for increasing the steroid dose in this situation. There is certainly no indication to add any methotrexate. We will continue to observe the liver function over time. No further workup is required for this issue. Current Visit: Yes (2) Anemia Status: Acute Assessment and plan: This patient has mild anemia with hematocrit at 29% not unexpected for a dialysis patient. He may also have bone marrow that has been affected by the granulomas caused by sarcoid throughout his body. This could be confirmed with bone marrow biopsy if symptoms worsen. There does not appear to be any GI bleeding. This patient had last undergone upper endoscopy by Dr. Cota on at which time he was noted to have some gastroparesis and reflux as well as a hiatal hernia but no other specific bleeding lesions were noted. He had previously undergone flexible sigmoidoscopy as well back in January 2015 which proved to be normal and no evidence of rectal mass was seen as had been expected from prior CT scanning. No further GI workup is required endoscopically for the anemia. 04/13/17--As noted above continue to observe the patient's hematocrit and hemoglobin over time. Current Visit: No (3) GERD (gastroesophageal reflux disease) Status: Acute Assessment and plan: The patient is previously undergone upper endoscopy back in [address] Ctoa which did demonstrate, as mentioned above, a hiatal hernia, and some gastroparesis. He is currently on a medication that blocks the acid in the stomach effectively 18 hours of the day and still having to use Zantac as well for further relief. I suspect he actually has gastroparesis as the cause for his bloating and reflux symptoms. I would like to make the diagnosis of gastroparesis while he is here and so we will order a gastric emptying study for tomorrow. He may benefit more from treatment with erythromycin or Reglan if the diagnosis can be made definitively. 04/13/17--This patient likely has a significant gastroparesis present, given the above endoscopy results in his current requirement for a high level acid suppression I suspect he actually has poor stomach emptying and this lack of motility is the real reason why his reflux is so severe. Gastric emptying study is pending for today to document this and give us a benchmark of severity. He may benefit from Reglan use. After the test the patient could be discharged from a GI standpoint. Current Visit: No Gastroenterology - PN: Subj Interval history: Liver function tests are essentially normal with an ALT that is actually low at 15, AST of 19, alkaline phosphatase of 56 and a bilirubin of 0.5. These indicate the patient's liver is not being affected significantly by the granulomata buildup caused by sarcoid. There is no indication for increasing the steroid dose in this situation. We discussed the indication for the patient 's gastric emptying study this morning, he is n.p.o. for this procedure. I suspect he has significant gastric emptying delay. Exam (Progress Note) - Constitutional Vitals: Period Temp Pulse Resp BP Sys/Briseno Pulse Ox Last 24 Hr 97.3 F-98.6 F 62-85 18-20 122-181/75-94 93-99 General appearance: mild distress - Head Head exam: Present: normocephalic - Eye Eye exam: Present: EOMI Pupils: Present: NAKUL - Respiratory Respiratory exam: Present: clear to auscultation bilaterally - Cardiovascular Cardiovascular exam: Present: regular rate and rhythm - GI/Abdominal GI/Abdominal exam: Present: normal bowel sounds, distended, soft. Absent: guarding, tenderness, rebound - Neurological Exam Neurological exam: Present: alert, oriented X3, CN II-XII intact - Psychiatric Psychiatric exam: Present: normal affect, normal mood - Skin Skin exam: Present: warm Results - Labs CBC & BMP: 04/12/17 05:10 04/12/17 05:10
--- NOTE | 2017-04-13 07:19 | Nephrology Progress Note ---
Nephrology - PN: Subj Interval history: Patient continues to complain of left groin pain, he states the pain usually comes around about every other week and lasts a day or so but is lasted much longer this occasion. VMI-sbbrzoecwaikxal-tbvvnny states he suffers with right hip pain which impairs his ability to walk, GI-patient's nausea and vomiting is better he is to have a gastric emptying study today, pulmonary-he denies shortness of breath Assessment/plan 1. End-stage renal disease-we will continue hemodialysis support 2. Diabetes mellitus 3. Hypertension 4. Secondary hyperparathyroidism 5. Left groin pain-I am going to ask 1 of the local pain post acute care nurse to see him in consultation to see if they have anything to offer. Exam (PN)-Nephrology - Vital Signs Vital signs: Period Temp Pulse Resp BP Sys/Briseno Pulse Ox Last 24 Hr 97.3 F-98.6 F 62-85 18-20 122-181/75-94 93-99 - Lab 04/12/17 05:10 04/12/17 05:10 Most recent lab results Calcium 8.6 MG/DL (8.5-10.1) 04/12/17 05:10 Magnesium 2.6 MG/DL (1.8-2.4) H 04/11/17 19:38 Assessment and Plan (1) Groin pain Status: Acute Assessment and plan: We will try and get the report from the CT scan done at [facility] this past Wednesday Current Visit: Yes (2) Anemia Status: Acute Assessment and plan: Patient's hematocrit around 29%, will continue EPO on dialysis Current Visit: No (3) Diabetes Status: Chronic Current Visit: No Qualifiers: Diabetes mellitus type: type 2 Diabetes mellitus complication status: with kidney complications Diabetes mellitus complication detail: with nephropathy (4) End stage renal disease Status: Chronic Assessment and plan: We will plan on hemodialysis today and Wednesday thereafter Current Visit: No (5) Hypertension Status: Chronic Current Visit: No Qualifiers: Hypertension type: essential hypertension Qualified Code(s): I10 - Essential (primary) hypertension (6) Seizure disorder Status: Chronic Current Visit: No
--- NOTE | 2017-04-13 07:51 | Urology Progress Note ---
Urology - PN: Subj Interval history: Baseline PSA is 0.2. The patient's urine culture is negative at 24 hours Exam - Constitutional Vitals: Period Temp Pulse Resp BP Sys/Briseno Pulse Ox Last 24 Hr 97.3 F-98.6 F 62-85 18-20 122-181/75-94 93-99 Results - Labs CBC & BMP: 04/12/17 05:10 04/12/17 05:10
[2017-04-13] MEDS: INSULIN REGULAR 100 UNIT/ML SUBCUT SCH ×4 (10:17→21:47)
--- NOTE | 2017-04-13 11:25 | Hospitalist Progress Note ---
Assessment and Plan (1) Testicular/scrotal pain Status: Acute Assessment and plan: Patient had a normal ultrasound on this 07 April informed. I counseled to the order of or testicular ultrasound at this point. This complaint of pain which he has mentioned other physician that comes and goes is difficult to ascertain. He has a long-term use of oxycodone based opioid therefore pain medication substance use disorder is possible. Current Visit: Yes (2) Chronic back pain Status: Acute Assessment and plan: Continue analgesia as now; this is a chronic complaint. Current Visit: Yes (3) Rectal mass Status: Acute Assessment and plan: This in conjunction with hepatic lesions suggestive of colon malignancy. The only thing that does not make sense to me that is no medical oncology given consultation on this case on this admission. Will await GI findings. Notes elevated CEA levels. GI is on the case. Current Visit: No Hospitalist: Subjective Interval history: Patient has been seen interviewed and examined and chart has been reviewed continues to complain of testicular pain. Going up for gastric emptying study today to evaluate his nausea and vomiting. This gentleman still is quite unsure about his history of GI evaluation in this patient with a C scope. Mention of rectal cancer that has been documented on preceding notes. However how it was initially found, I cannot find documentation of. He also has history of low pelvic CT scan that was done in [place] I have instructed the nurses to get that information from there note. Gastroenterology is on the case. At this point the are evaluating upper GI. I am sure they will come to the point of evaluating his lower GI or at least comment on it. He has had a CT scan in the past that shows some intra-abdominal masses which could be lymph nodes. History and the finding is in the liver with multiple liver lesions that are getting "bigger" thus a possibility of malignancy but I believe I also saw documentation that the liver biopsy was done and the tissue obtained was benign. Could be many reasons why would be benign amongst them will be wrong sampling. But here we are with a poor historian who presents with testicular pain and normal ultrasound of scrotal contents on 07 April this year; a few days ago, history of abdominal lesions, mention of rectal lesion, multiple liver lesions and nausea and vomiting. He has chronic pain and uses a lot of opioids at home. He is extremely forgetful remembering very little but what has been done for him. Getting a meaningful history from him impossible. Exam - Constitutional Vitals: Period Temp Pulse Resp BP Sys/Briseno Pulse Ox Last 24 Hr 97.0 F-98.6 F 62-85 18-20 135-181/78-94 93-99 General appearance: over weight - Head Head exam: Present: normocephalic, atraumatic - Eye Eye exam: Present: EOMI Pupils: Present: NAKUL - Neck Neck exam: Present: normal inspection - Respiratory Respiratory exam: Present: clear to auscultation bilaterally - Cardiovascular Cardiovascular exam: Present: regular rate and rhythm - GI/Abdominal GI/Abdominal exam: Present: normal bowel sounds, soft - Extremities Exam Extremities exam: Present: other (Has unsteady gait) - Neurological Exam Neurological exam: Present: other (Very forgetful denies any head trauma) - Psychiatric Psychiatric exam: Present: other (Docile looking) - Skin Skin exam: Present: normal color, warm, dry Results - Labs CBC & BMP: 04/12/17 05:10 04/12/17 05:10 Lab Results: I have reviewed the past 24 hour labs
--- NOTE | 2017-04-13 12:30 | Nuclear Medicine Report ---
NM gastric emptying study Indication: Gastroparesis on EGD 2013. Refractory GERD. GASTRIC EMPTYING NUCLEAR MEDICINE SCAN Technique: 500 ?Ci technetium 99 labeled sulfur colloid was given by mouth in solid food (scrambled egg sandwich). Time activity curves of the stomach with linear fit analysis was performed. Findings: Linear fit gastric activity half-life 385 minutes. At 257 minutes, 57% activity remaining in the stomach. Impression: Severe delayed gastric emptying. PROCEDURE INTERPRETED AT [facility], [place] DEPARTMENT OF RADIOLOGY Final Report Signed by: Navid Khanna M.D.
[2017-04-13] MEDS: PREGABALIN 75 MG CAPSULE PO SCH ×2 (12:54→20:54)
[2017-04-13] MEDS: sitaGLIPtin 25 MG TABLET PO SCH (12:55)
[2017-04-13] MEDS: FUROSEMIDE 80 MG TABLET PO SCH ×2 (12:55→15:07)
[2017-04-13] MEDS: levETIRAcetam 500 MG TABLET PO SCH ×2 (12:55→20:55)
[2017-04-13] MEDS: LEVOTHYROXINE 75 MCG TABLET PO SCH (12:55)
[2017-04-13] MEDS: DULoxetine 30 MG CAPSULE PO SCH (12:55)
[2017-04-13] MEDS: PANTOPRAZOLE 40 MG TABLET PO SCH ×2 (12:55→20:54)
[2017-04-13] MEDS: ASPIRIN EC 81 MG TABLET PO SCH (12:55)
[2017-04-13] MEDS: METOPROLOL SUCCINATE XL 100 MG TABLET PO SCH (12:56)
[2017-04-13] MEDS: predniSONE 10 MG TABLET PO SCH (12:56)
--- NOTE | 2017-04-13 14:26 | Pain Management Consult Note ---
Assessment and Plan (1) Testicular/scrotal pain Status: Acute Assessment and plan: I will add Neurontin 300 mg twice daily to help with the neuropathic pain in the left testicle Current Visit: Yes History of Present Illness Chief complaint: Left testicular pain History of present illness: Mr. Sam is a 41 year old male Patient has a long history of unexplained left testicular pain patient reports that he had torsion and surgery in this area when he was 6 years old discussed with the patient that due to the fact that he does not have a hernia and I do not think that any other explanation can be given except her lack of support for the testicle. I have encouraged him to use briefs instead of boxers when he gets out of the hospital and even today with some scrotal support but he maintains that that makes her really uncomfortable the only other way to treat this would be with the neuropathic pain medications. He is noticed to be in Lyrica 150 twice daily I will also add Neurontin Home Medications Medication Instructions Recorded Confirmed Type Dexlansoprazole [Dexilant] 60 mg PO QAM 02/07/15 04/11/17 History Ranitidine Tab [Zantac Tab] 150 mg PO BID 02/07/15 04/11/17 History Fenofibrate [Tricor] 145 mg PO BEDTIME 03/10/16 04/11/17 History Levothyroxine Tab [Synthroid Tab] 75 mcg PO QAM 03/10/16 04/11/17 History Linagliptin [Tradjenta] 5 mg PO QAM 03/10/16 04/11/17 History Metoprolol Succinate Xl [Toprol Xl] 100 mg PO QAM 03/10/16 04/11/17 History Aspirin EC Tab 81 mg PO QAM 08/12/16 04/11/17 History Furosemide 80 mg PO BID 08/12/16 04/11/17 History Pregabalin [Lyrica] 150 mg PO BID 09/29/16 04/11/17 History Atorvastatin [Lipitor] 20 mg PO BEDTIME 04/06/17 04/11/17 History Insulin Aspart [NovoLOG] See Protocol SUBCUT BID 04/06/17 04/11/17 History Sucroferric Oxyhydroxide [Velphoro 500 mg PO DAILY 04/06/17 04/11/17 History Chew Tab] levETIRAcetam [Keppra] 1,500 mg PO BID 04/06/17 04/11/17 History predniSONE TAB [PredniSONE] 10 mg PO QAM 04/06/17 04/11/17 History Duloxetine HCl [Cymbalta] 60 mg PO QAM 04/07/17 04/11/17 History Oxycodone HCl/Acetaminophen 1 each PO Q4H PRN #20 04/08/17 04/11/17 Rx [Percocet 7.5-325 mg Tablet] Allergies Allergy/AdvReac Type Severity Reaction Status Date / Time tramadol [From Ultram] AdvReac Severe Seizure Verified 04/11/17 11:24 hydrocodone AdvReac Intermediate Vomiting Verified 04/11/17 11:24 sulfamethoxazole AdvReac Mild KIDNEY Verified 04/11/17 11:24 [From Bactrim] REACTION STATED BY PT MOTHER trimethoprim [From Bactrim] AdvReac Mild KIDNEY Verified 04/11/17 11:24 REACTION STATED BY PT MOTHER Medical,Surgical,& Family Hx - Medical History Cardio: History of: Cerebrovascular Disease, CAD (stent x 2), Hypertension, SC ( 2012) Psychological: History of: Depression Neurology: History of: Migraine, Peripheral Neuropathy, Seizures No history of: Cerebrovascular Accident HEENT: History of: Ear Problem (LOST HEARING OUT OF RIGHT EAR POSS DUE TO NERVE DAMAGE STATES PT. 3YEAR AGO) Endocrine: History of: Diabetes Mellitus (IDDM), Diabetes Mellitus (NIDDM), Dyslipidemia, Thyroid Disorder (UNDERACTIVE THYROID PROBLEMS) Respiratory: History of: Obstructive Sleep Apnea, Pneumonia Comment Only: Respiratory Problems (MEDIASTINOSCOPY) Renal: History of: Dialysis (M,W,F) Genitourinary: History of: Kidney Stones Gastrointestinal: History of: GERD, Hemorrhoids, Liver Problems (biopsy ok), Pancreatitis, GI Problems (NAUSEA AND VOMITING) Musculoskeletal: History of: Back/Neck Problems, Musculoskeletal Problems Other: History of: Miscellaneous Medical Problems (SARCOIDOSIS) - Surgical History Cardiac Surgeries: Sugical HX of: Cardiac Catheterization, Vascular Access Devices (fistula 2014) Thoracic Surgeries: Surgical HX of;: Lithotripsy (02/16/15) HEENT Surgeries: Surgical HX of: Eye Surgery (LASER SURGERY 2013) Abdominal Surgeries: Surgical HX of: Colonoscopy Reproductive Surgeries: Surgical HX of;: Genitourinary Surgery Orthopedic Surgeries: Surgical HX of;: Orthopedic Surgery (hip surgery secondary to fracture) - Family History Family History: Reports;: Family Diabetes (FATHER), Family Hypertension (MOTHER , FATHER, GRANDPARNENTS MATERNAL AND PATERNAL) Comment Only: Family Cancer (maternal grandfather(prostate)), Family Stroke ( Maternal grandmother) - Social History Smoking Status: Former smoker Frequency of Alcohol Use: None Type of Drug Use: None 12 point system: reviewed and no additional remarkable complaints except as stated Exam - Constitutional Vitals: Period Temp Pulse Resp BP Sys/Briseno Pulse Ox Last 24 Hr 97.0 F-98.6 F 62-85 18-20 137-181/78-94 93-99 General appearance: no acute distress - Head Head exam: Present: normal inspection - ENT ENT exam: Present: normal exam Ear exam: Present: intact. Absent: [place] Mouth exam: Present: normal external inspection - Neck Neck exam: Present: normal inspection - Respiratory Respiratory exam: Present: clear to auscultation bilaterally - Cardiovascular Cardiovascular exam: Present: RRR - GI/Abdominal GI/Abdominal exam: Present: normal bowel sounds, other (left testicle seems slightly swollen) - Neurological Exam Neurological exam: Present: alert, oriented X3 - Skin Skin exam: Present: normal color Results - Labs CBC & BMP: 04/12/17 05:10 04/12/17 05:10 Lab Results: I have reviewed the past 24 hour labs
[2017-04-13] MEDS: GABAPENTIN 300 MG CAPSULE PO SCH ×2 (14:50→20:54)
[2017-04-13] MEDS: METOCLOPRAMIDE 10 MG/10 ML UDCUP PO SCH ×2 (16:04→20:56)
[2017-04-13] MEDS: FENOFIBRATE 145 MG TABLET PO SCH (20:54)
[2017-04-13] MEDS: ATORVASTATIN 20 MG TABLET PO SCH (20:54)
[2017-04-14] MEDS: ONDANSETRON 4 MG/2 ML VIAL IV PRN ×2 (02:12→09:22)
[2017-04-14] MEDS: oxyCODONE/ACETAMINOPHEN 5-325 MG TABLET PO PRN (02:40)
[2017-04-14] MEDS: METOCLOPRAMIDE 10 MG/10 ML UDCUP PO SCH ×2 (07:30→11:30)
--- NOTE | 2017-04-14 07:38 | Urology Progress Note ---
Urology - PN: Subj Interval history: The patient still complains of pain but his physical examination remains normal and unchanged. I recommend symptomatic treatment at the present time as outlined by Dr. Dominguez. I do not have anything else to offer at this time. I can see the patient in the office later as needed. Exam - Constitutional Vitals: Period Temp Pulse Resp BP Sys/Briseno Pulse Ox Last 24 Hr 96.5 F-98.7 F 70-81 18-20 137-167/71-88 94-99 Results - Labs CBC & BMP: 04/12/17 05:10 04/12/17 05:10
[2017-04-14] MEDS: LIDOCAINE/PRILOCAINE CREAM 5 GM TUBE TOP PRN (09:05)
--- NOTE | 2017-04-14 09:05 | Pain Management Progress Note ---
Assessment and Plan (1) Testicular/scrotal pain Status: Acute Assessment and plan: I will add Neurontin 300 mg twice daily to help with the neuropathic pain in the left testicle 04/14 continue gabapentin and wean off lyrica as tolerated Current Visit: Yes Pain - Subjective Interval history: pain is better controlled on neurontin and mother wants him to wean off lyrica due to weight gain . otherwise stable Exam - Constitutional Vitals: Period Temp Pulse Resp BP Sys/Briseno Pulse Ox Last 24 Hr 96.5 F-98.7 F 70-81 18-20 144-167/71-88 95-99 General appearance: no acute distress - Head Head exam: Present: normal inspection - Eye Eye exam: Present: EOMI Pupils: Present: NAKUL - ENT ENT exam: Present: normal exam Ear exam: Present: intact Mouth exam: Present: normal external inspection - Neck Neck exam: Present: normal inspection - Respiratory Respiratory exam: Present: clear to auscultation bilaterally - Cardiovascular Cardiovascular exam: Present: RRR - GI/Abdominal GI/Abdominal exam: Present: other (left testcle pain ) - Extremities Exam Extremities exam: Present: normal inspection - Back Exam Back exam: Present: normal inspection - Neurological Exam Neurological exam: Present: alert, oriented X3 Speech: Present: normal Results - Labs CBC & BMP: 04/12/17 05:10 04/12/17 05:10 Lab Results: I have reviewed the past 24 hour labs
[2017-04-14] MEDS: PREGABALIN 75 MG CAPSULE PO SCH ×2 (09:33→22:29)
[2017-04-14] MEDS: LEVOTHYROXINE 75 MCG TABLET PO SCH (09:33)
[2017-04-14] MEDS: GABAPENTIN 300 MG CAPSULE PO SCH ×2 (09:33→22:31)
[2017-04-14] MEDS: DULoxetine 30 MG CAPSULE PO SCH (09:33)
[2017-04-14] MEDS: sitaGLIPtin 25 MG TABLET PO SCH (09:33)
[2017-04-14] MEDS: predniSONE 10 MG TABLET PO SCH (09:34)
[2017-04-14] MEDS: METOPROLOL SUCCINATE XL 100 MG TABLET PO SCH (09:34)
[2017-04-14] MEDS: levETIRAcetam 500 MG TABLET PO SCH ×2 (09:34→22:30)
[2017-04-14] MEDS: ASPIRIN EC 81 MG TABLET PO SCH (09:35)
[2017-04-14] MEDS: PANTOPRAZOLE 40 MG TABLET PO SCH ×2 (09:35→22:30)
[2017-04-14] MEDS: FUROSEMIDE 80 MG TABLET PO SCH ×2 (09:40→16:30)
[2017-04-14] MEDS: INSULIN REGULAR 100 UNIT/ML SUBCUT SCH ×4 (09:43→22:28)
--- NOTE | 2017-04-14 13:43 | Nephrology Progress Note ---
Nephrology - PN: Subj Interval history: Patient seen on hemodialysis, he is tolerating this well. He does complain of some vomiting this morning. He has been prescribed Reglan but is not going to take this because he is afraid of its association with seizures. Assessment/plan 1. End-stage renal disease-we will continue hemodialysis support 2. Diabetes mellitus 3. Hypertension 4. Secondary hyperparathyroidism 5. Diabetic gastroparesis-patient's emptying study on the gastric scan shows severe gastroparesis, as the patient is unable or unwilling to take Reglan wonder if a gastric pacemaker may be an option here. Exam (PN)-Nephrology - Vital Signs Vital signs: Period Temp Pulse Resp BP Sys/Briseno Pulse Ox Last 24 Hr 96.5 F-98.7 F 71-81 18-20 146-167/71-88 95-99 - Lab 04/12/17 05:10 04/12/17 05:10 Most recent lab results Calcium 8.6 MG/DL (8.5-10.1) 04/12/17 05:10 Magnesium 2.6 MG/DL (1.8-2.4) H 04/11/17 19:38 Assessment and Plan (1) Groin pain Status: Acute Assessment and plan: We will try and get the report from the CT scan done at [facility] this past Wednesday Current Visit: Yes (2) Anemia Status: Acute Assessment and plan: Patient's hematocrit around 29%, will continue EPO on dialysis Current Visit: No (3) Diabetes Status: Chronic Current Visit: No Qualifiers: Diabetes mellitus type: type 2 Diabetes mellitus complication status: with kidney complications Diabetes mellitus complication detail: with nephropathy (4) End stage renal disease Status: Chronic Assessment and plan: We will plan on hemodialysis today and Wednesday thereafter Current Visit: No (5) Hypertension Status: Chronic Current Visit: No Qualifiers: Hypertension type: essential hypertension Qualified Code(s): I10 - Essential (primary) hypertension (6) Seizure disorder Status: Chronic Current Visit: No
--- NOTE | 2017-04-14 14:04 | Gastrointestinal Progress Note ---
Assessment and Plan (1) Hepatic granuloma associated with sarcoidosis Status: Acute Assessment and plan: These liver lesions have been biopsied and worked up. They represent the patient's hepatic sarcoidosis which is seen in approximately 65% of patients with sarcoidosis. Patient's liver function tests have always been normal in the past will need to recheck these to see if increasing prednisone will be necessary. From a liver standpoint, this is usually necessary when there is biliary obstruction from the hepatic granuloma--usually from enlarging hilar granuloma. Acute treatment usually requires prednisone 30-40 mg per day and then taper down to his present dose of 10 mg per day. Again, this will not likely not be required if his liver function tests are within normal limits or only mildly elevated. Treatment will rarely result in failures of glucocorticoid to suppress the sarcoidosis in which case methotrexate can be attempted. Usually this would require referral to a furniture decals inspector as I personally would not feel comfortable treating him with this immunosuppressant agent locally. The patient's also agrees that she would like to be referred to furniture decals inspector if first-line therapies fail. Patients with hepatic sarcoidosis developed cirrhosis in about 6% of cases. 04/13/17--Liver function tests are essentially normal with an ALT that is actually low at 15, AST of 19, alkaline phosphatase of 56 and a bilirubin of 0.5. These indicate the patient's liver is not being affected significantly by the granulomata buildup caused by sarcoid. There is no indication for increasing the steroid dose in this situation. There is certainly no indication to add any methotrexate. We will continue to observe the liver function over time. No further workup is required for this issue. 04/14/17-- as noted above. Current Visit: Yes (2) Anemia Status: Acute Assessment and plan: This patient has mild anemia with hematocrit at 29% not unexpected for a dialysis patient. He may also have bone marrow that has been affected by the granulomas caused by sarcoid throughout his body. This could be confirmed with bone marrow biopsy if symptoms worsen. There does not appear to be any GI bleeding. This patient had last undergone upper endoscopy by Dr. Cota on at which time he was noted to have some gastroparesis and reflux as well as a hiatal hernia but no other specific bleeding lesions were noted. He had previously undergone flexible sigmoidoscopy as well back in January 2015 which proved to be normal and no evidence of rectal mass was seen as had been expected from prior CT scanning. No further GI workup is required endoscopically for the anemia. 04/13/17--As noted above continue to observe the patient's hematocrit and hemoglobin over time. 04/14/17--Noted above, hematocrit not rechecked today. Current Visit: No (3) GERD (gastroesophageal reflux disease) Status: Acute Assessment and plan: The patient is previously undergone upper endoscopy back [place] [address] Cota which did demonstrate, as mentioned above, a hiatal hernia, and some gastroparesis. He is currently on a medication that blocks the acid in the stomach effectively 18 hours of the day and still having to use Zantac as well for further relief. I suspect he actually has gastroparesis as the cause for his bloating and reflux symptoms. I would like to make the diagnosis of gastroparesis while he is here and so we will order a gastric emptying study for tomorrow. He may benefit more from treatment with erythromycin or Reglan if the diagnosis can be made definitively. 04/13/17--This patient likely has a significant gastroparesis present, given the above endoscopy results in his current requirement for a high level acid suppression I suspect he actually has poor stomach emptying and this lack of motility is the real reason why his reflux is so severe. Gastric emptying study is pending for today to document this and give us a benchmark of severity. He may benefit from Reglan use. After the test the patient could be discharged from a GI standpoint. 04/14/17--The patient's gastric emptying study was noted to be markedly delayed-- normal half emptying time of the stomach is about 90 minutes, this patient's emptying was noted to be 385 minutes, it is no surprise that he is having severe nausea and vomiting with meals. Unfortunately he refused his Reglan this morning due to concerns of her seizure threshold lowering. After presenting the patient has limited options on treating the underlying gastroparesis he is elected to try the Reglan which will be given IV initially to see how he fares with the medication. I suspect that he will do fine with the medication, if he does not it would be best to observe him having a seizure as a result of the new medication and discontinue it entirely. Again our treatment options are somewhat limited as the only other available medication is erythromycin as mentioned below Current Visit: No Gastroenterology - PN: Subj Interval history: Still having nausea and vomiting in the morning times particularly, the patient feels queasy now, his mother and he read up on the side effects of Reglan and decided that since this increased his seizure threshold that he would not want to be taking this medication. We had a discussion today about his choices which are too and include both erythromycin and Reglan, the former of which can produce a proarrhythmic effect and has a pro-nausea effect unfortunately. Observing this patient in the hospital environment on Reglan but actually be ideal since seizures would be witnessed and not while he is driving to and from dialysis which I understand is about 60 miles from his home. We will also observe him for the more common side effects of agitation, sedation, and tardive dyskinesia Exam (Progress Note) - Constitutional Vitals: Period Temp Pulse Resp BP Sys/Briseno Pulse Ox Last 24 Hr 96.5 F-98.7 F 71-81 18-20 146-167/71-88 95-99 General appearance: mild distress - Head Head exam: Present: normocephalic - Eye Eye exam: Present: EOMI Pupils: Present: NAKUL - Respiratory Respiratory exam: Present: clear to auscultation bilaterally - Cardiovascular Cardiovascular exam: Present: regular rate and rhythm - GI/Abdominal GI/Abdominal exam: Present: normal bowel sounds, distended, tenderness, soft - Neurological Exam Neurological exam: Present: alert, oriented X3, CN II-XII intact - Psychiatric Psychiatric exam: Present: normal affect, normal mood - Skin Skin exam: Present: warm Results - Labs CBC & BMP: 04/12/17 05:10 04/12/17 05:10
--- NOTE | 2017-04-14 15:01 | Hospitalist Progress Note ---
Assessment and Plan (1) Gastroparesis Status: Acute Assessment and plan: Confirmed on gastric emptying study Started on reglan, although patient refused today due to concern for seizures, GI assisting Current Visit: Yes (2) Hypertension Status: Chronic Current Visit: No Qualifiers: Hypertension type: essential hypertension Qualified Code(s): I10 - Essential (primary) hypertension (3) Seizure disorder Status: Chronic Assessment and plan: Continue home medications Current Visit: No (4) End stage renal disease on dialysis Problem details: Routine CHD tomorrow. UF to EDW as tolerated by hemodynamics. Status: Chronic Assessment and plan: Nephrology assisting Current Visit: No (5) Insulin dependent diabetes mellitus Status: Chronic Assessment and plan: Home meds Current Visit: No (6) Sarcoidosis Status: Acute Current Visit: No (7) Hepatic granuloma associated with sarcoidosis Status: Acute Assessment and plan: GI assisting Current Visit: Yes Hospitalist: Subjective Interval history: No acute events overnight. Patient complaining of nausea and vomiting. Still unable to keep food down. Exam - Constitutional Vitals: Period Temp Pulse Resp BP Sys/Briseno Pulse Ox Last 24 Hr 96.5 F-98.7 F 71-81 18-20 146-167/71-88 95-99 General appearance: over weight - Head Head exam: Present: normocephalic, atraumatic - Eye Eye exam: Present: EOMI Pupils: Present: NAKUL - ENT ENT exam: Present: normal exam - Neck Neck exam: Present: normal inspection - Respiratory Respiratory exam: Present: clear to auscultation bilaterally. Absent: rhonchi, wheezes - Cardiovascular Cardiovascular exam: Present: regular rate and rhythm - GI/Abdominal GI/Abdominal exam: Present: normal bowel sounds, soft. Absent: tenderness, rebound - Extremities Exam Extremities exam: Present: normal inspection - Back Exam Back exam: Present: normal inspection - Neurological Exam Neurological exam: Present: alert, oriented X3 - Psychiatric Psychiatric exam: Present: normal affect, normal mood - Skin Skin exam: Present: warm, intact Results - Labs CBC & BMP: 04/12/17 05:10 04/12/17 05:10
[2017-04-14] MEDS: METOCLOPRAMIDE 10 MG/2 ML VIAL IV SCH (18:03)
[2017-04-14] MEDS: FENOFIBRATE 145 MG TABLET PO SCH (22:30)
[2017-04-14] MEDS: ATORVASTATIN 20 MG TABLET PO SCH (22:30)
[2017-04-15] MEDS: METOCLOPRAMIDE 10 MG/2 ML VIAL IV SCH ×2 (01:30→07:30)
--- NOTE | 2017-04-15 06:42 | Gastrointestinal Progress Note ---
Assessment and Plan (1) Hepatic granuloma associated with sarcoidosis Status: Acute Assessment and plan: These liver lesions have been biopsied and worked up. They represent the patient's hepatic sarcoidosis which is seen in approximately 65% of patients with sarcoidosis. Patient's liver function tests have always been normal in the past will need to recheck these to see if increasing prednisone will be necessary. From a liver standpoint, this is usually necessary when there is biliary obstruction from the hepatic granuloma--usually from enlarging hilar granuloma. Acute treatment usually requires prednisone 30-40 mg per day and then taper down to his present dose of 10 mg per day. Again, this will not likely not be required if his liver function tests are within normal limits or only mildly elevated. Treatment will rarely result in failures of glucocorticoid to suppress the sarcoidosis in which case methotrexate can be attempted. Usually this would require referral to a auto service dispatcher as I personally would not feel comfortable treating him with this immunosuppressant agent locally. The patient's also agrees that she would like to be referred to auto service dispatcher if first-line therapies fail. Patients with hepatic sarcoidosis developed cirrhosis in about 6% of cases. 04/13/17--Liver function tests are essentially normal with an ALT that is actually low at 15, AST of 19, alkaline phosphatase of 56 and a bilirubin of 0.5. These indicate the patient's liver is not being affected significantly by the granulomata buildup caused by sarcoid. There is no indication for increasing the steroid dose in this situation. There is certainly no indication to add any methotrexate. We will continue to observe the liver function over time. No further workup is required for this issue. 04/14/17-- as noted above. 04/15/17--This patient has increased size of lesions in the liver due to granulomatous disease, not clinically significant at this point. Continue steroids 10 mg per day with prednisone. He may require this indefinitely. Current Visit: Yes (2) Anemia Status: Acute Assessment and plan: This patient has mild anemia with hematocrit at 29% not unexpected for a dialysis patient. He may also have bone marrow that has been affected by the granulomas caused by sarcoid throughout his body. This could be confirmed with bone marrow biopsy if symptoms worsen. There does not appear to be any GI bleeding. This patient had last undergone upper endoscopy by Dr. Cota on at which time he was noted to have some gastroparesis and reflux as well as a hiatal hernia but no other specific bleeding lesions were noted. He had previously undergone flexible sigmoidoscopy as well back in January 2015 which proved to be normal and no evidence of rectal mass was seen as had been expected from prior CT scanning. No further GI workup is required endoscopically for the anemia. 04/13/17--As noted above continue to observe the patient's hematocrit and hemoglobin over time. 04/14/17--Noted above, hematocrit not rechecked today. 04/15/17--Stable. Current Visit: No (3) GERD (gastroesophageal reflux disease) Status: Acute Assessment and plan: The patient is previously undergone upper endoscopy back [place] [address] Cota which did demonstrate, as mentioned above, a hiatal hernia, and some gastroparesis. He is currently on a medication that blocks the acid in the stomach effectively 18 hours of the day and still having to use Zantac as well for further relief. I suspect he actually has gastroparesis as the cause for his bloating and reflux symptoms. I would like to make the diagnosis of gastroparesis while he is here and so we will order a gastric emptying study for tomorrow. He may benefit more from treatment with erythromycin or Reglan if the diagnosis can be made definitively. 04/13/17--This patient likely has a significant gastroparesis present, given the above endoscopy results in his current requirement for a high level acid suppression I suspect he actually has poor stomach emptying and this lack of motility is the real reason why his reflux is so severe. Gastric emptying study is pending for today to document this and give us a benchmark of severity. He may benefit from Reglan use. After the test the patient could be discharged from a GI standpoint. 04/14/17--The patient's gastric emptying study was noted to be markedly delayed-- normal half emptying time of the stomach is about 90 minutes, this patient's emptying was noted to be 385 minutes, it is no surprise that he is having severe nausea and vomiting with meals. Unfortunately he refused his Reglan this morning due to concerns of her seizure threshold lowering. After presenting the patient has limited options on treating the underlying gastroparesis he is elected to try the Reglan which will be given IV initially to see how he fares with the medication. I suspect that he will do fine with the medication, if he does not it would be best to observe him having a seizure as a result of the new medication and discontinue it entirely. Again our treatment options are somewhat limited as the only other available medication is erythromycin as mentioned below 04/15/17--The above gastric emptying appears about 5 times greater than normal average time. He should benefit quite significantly from Reglan and has consented to try the IV she has not produced any immediate side effects. Patient will be switched over to elixir prescription has been left in the front of the chart. From my standpoint he can certainly be discharged. He has been educated concerning the side effects of tardive dyskinesia, sedation, and agitation which she should watch for at home. I think the likelihood of producing seizure is low but present. He understands this as well as the fact that there are very limited options to pick from concerning treatment of this disorder. Thank you for this interesting consult will sign off at this time. He can follow-up in my office in 6 months Current Visit: No Gastroenterology - PN: Subj Interval history: Tolerating Reglan very well by IV, I think he will do well with the elixir. IV preparation canceled today elixir started, patient stable for discharge from my standpoint after taking a dose and observing. Side effects of tardive dyskinesia explained to the patient specifically what to watch out for. He could certainly discontinue this medication if these side effects occur however erythromycin has proarrhythmic effects and the only other choice is domperidone , not available in [place]. Exam (Progress Note) - Constitutional Vitals: Period Temp Pulse Resp BP Sys/Briseno Pulse Ox Last 24 Hr 96.5 F-98.0 F 68-93 18-20 139-153/66-84 94-98 General appearance: no acute distress - Head Head exam: Present: normocephalic - Eye Eye exam: Present: EOMI Pupils: Present: NAKUL - Respiratory Respiratory exam: Present: clear to auscultation bilaterally - Cardiovascular Cardiovascular exam: Present: regular rate and rhythm - GI/Abdominal GI/Abdominal exam: Present: normal bowel sounds, soft. Absent: distended, tenderness, rebound Results - Labs CBC & BMP: 04/12/17 05:10 04/12/17 05:10
[2017-04-15] MEDS: LEVOTHYROXINE 75 MCG TABLET PO SCH (07:09)
[2017-04-15 07:29] LABS: Basophils # 0.1 10*3/uL (0.0-0.2); Basophils % 0.8 % (0.0-0.8); Eosinophils # 0.2 10*3/uL (0.0-0.87); Hemoglobin 10.2 GM/DL (14.0-18.0); Immature Granulocytes % 1.8 %; Immature Granulocytes Absolute 0.14 #; Lymphocytes # 1.9 10*3/uL (1.4-4.0); Lymphocytes % 24.2 % (21.2-54.2); Mean Corpuscular HGB Conc 32.9 GM/DL (32-36); Mean Corpuscular Hemoglobin 31 PG (27-34); Mean Corpuscular Volume 94.8 FL (87-102); Monocytes % 12.6 % (1.7-12.7); NRBC # 0.07 10*3/uL; Neutrophils # 4.7 10*3/uL (1.4-7.4); Neutrophils % 58.6 % (38.7-73.9); Platelet Count 161 T/CUMM (130-400); Red Blood Count 3.27 MC/CUMM (3.8-5.5); Red Cell Distribution Width 13.6 % (9.3-17.3); White Blood Count 7.9 T/CUMM (4-12)
[2017-04-15] MEDS ORDERED: METOCLOPRAMIDE 10 MG/10 ML UDCUP PO SCH ×2 (07:30→07:54)
[2017-04-15 07:54] LABS: Magnesium 2.4 MG/DL (1.8-2.4); Potassium 5.2 MMOL/L (3.5-5.1)
--- NOTE | 2017-04-15 07:54 | Nephrology Progress Note ---
Nephrology - PN: Subj Interval history: Patient states he ate supper last night and it stayed down. Review of systems- pulmonary he denies shortness of breath Physical exam general the patient is in no acute distress Assessment/plan 1. End-stage renal disease-we will continue HD support 2. Diabetes mellitus 3. Scrotal pain-this is better 4. Hypertension this is controlled 5. Diabetic gastroparesis-patient's been started on Reglan I am going to decrease the dose to 5 mg q. before meals and at bedtime due to his renal failure Exam (PN)-Nephrology - Vital Signs Vital signs: Period Temp Pulse Resp BP Sys/Briseno Pulse Ox Last 24 Hr 96.5 F-98.0 F 67-93 18-20 139-153/66-84 92-98 - Lab 04/15/17 06:00 04/12/17 05:10 Most recent lab results Calcium 8.6 MG/DL (8.5-10.1) 04/12/17 05:10 Magnesium 2.6 MG/DL (1.8-2.4) H 04/11/17 19:38 Assessment and Plan (1) Groin pain Status: Acute Assessment and plan: We will try and get the report from the CT scan done at [facility] this past Wednesday Current Visit: Yes (2) Anemia Status: Acute Assessment and plan: Patient's hematocrit around 29%, will continue EPO on dialysis Current Visit: No (3) Diabetes Status: Chronic Current Visit: No Qualifiers: Diabetes mellitus type: type 2 Diabetes mellitus complication status: with kidney complications Diabetes mellitus complication detail: with nephropathy (4) End stage renal disease Status: Chronic Assessment and plan: We will plan on hemodialysis today and Wednesday thereafter Current Visit: No (5) Hypertension Status: Chronic Current Visit: No Qualifiers: Hypertension type: essential hypertension Qualified Code(s): I10 - Essential (primary) hypertension (6) Seizure disorder Status: Chronic Current Visit: No
[2017-04-15] MEDS: INSULIN REGULAR 100 UNIT/ML SUBCUT SCH ×2 (09:30→12:12)
[2017-04-15] MEDS: ASPIRIN EC 81 MG TABLET PO SCH (09:31)
[2017-04-15] MEDS: FUROSEMIDE 80 MG TABLET PO SCH (09:31)
[2017-04-15] MEDS: predniSONE 10 MG TABLET PO SCH (09:32)
[2017-04-15] MEDS: PREGABALIN 75 MG CAPSULE PO SCH (09:32)
[2017-04-15] MEDS: PANTOPRAZOLE 40 MG TABLET PO SCH (09:32)
[2017-04-15] MEDS: GABAPENTIN 300 MG CAPSULE PO SCH (09:32)
[2017-04-15] MEDS: sitaGLIPtin 25 MG TABLET PO SCH (09:32)
[2017-04-15] MEDS: DULoxetine 30 MG CAPSULE PO SCH (09:32)
[2017-04-15] MEDS: levETIRAcetam 500 MG TABLET PO SCH (09:32)
[2017-04-15] MEDS: METOPROLOL SUCCINATE XL 100 MG TABLET PO SCH (09:33)
--- NOTE | 2017-04-15 10:41 | Pain Management Progress Note ---
Assessment and Plan (1) Testicular/scrotal pain Status: Acute Assessment and plan: I will add Neurontin 300 mg twice daily to help with the neuropathic pain in the left testicle 04/14 continue gabapentin and wean off lyrica as tolerated 04/15 will follow up with me after discharge Current Visit: Yes Pain - Subjective Interval history: Patient is stable on the current pain medications and no new complaints are noted Exam - Constitutional Vitals: Period Temp Pulse Resp BP Sys/Briseno Pulse Ox Last 24 Hr 96.5 F-98.0 F 67-93 18-20 139-153/66-84 92-98 General appearance: no acute distress - Head Head exam: Present: normal inspection - Eye Eye exam: Present: EOMI Pupils: Present: NAKUL - ENT ENT exam: Present: normal exam Ear exam: Present: intact Mouth exam: Present: normal external inspection - Neck Neck exam: Present: normal inspection - Respiratory Respiratory exam: Present: clear to auscultation bilaterally - Cardiovascular Cardiovascular exam: Present: RRR - GI/Abdominal GI/Abdominal exam: Present: normal bowel sounds - Extremities Exam Extremities exam: Present: normal inspection - Back Exam Back exam: Present: normal inspection - Neurological Exam Neurological exam: Present: alert - Skin Skin exam: Present: normal color Results - Labs CBC & BMP: 04/15/17 06:00 04/15/17 06:00 Lab Results: I have reviewed the past 24 hour labs
--- NOTE | 2017-04-15 11:44 | Discharge Summary ---
Hospital Course - Hospital Course Hospital Course: Mr. Sam is a 41 year old male with past medical history significant for end- stage renal disease, coronary artery disease and seizure disorder who presented the ED with abdominal pain and scrotal pain. He was admitted to the hospitalist service for further evaluation. Gastroenterology was consulted. He underwent a gastric emptying study which was significant for gastroparesis. He was started on Reglan, which he tolerated well. Urology was consulted for his scrotal pain, which had been recently worked up in [place]. Pain medicine also assisted with his pain regimen. He has now reached maximal benefit of inpatient stay and will be discharged to home. 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 Specialty Discharge - Follow Up or Referrals Follow up with: Jennifer Dominguez MD [Physician] - Discharge Plan - Discharge Data Disposition: Disch To Home/Self Care Condition at Discharge: Stable Discharge Diet: low salt diet Activity: increase activity as tolerated Hygiene: no restrictions Weight Bearing at Discharge: weight bear as tolerated Contact your physician if you experience:: Shortness of breath - Discharge Medications New Gabapentin Cap/Tab [Neurontin Cap/Tab] 300 mg PO BID #60 capsule Metoclopramide Tab [Reglan Tab] 5 mg PO ACHS #120 tablet Continue Ranitidine Tab [Zantac Tab] 150 mg PO BID Dexlansoprazole [Dexilant] 60 mg PO QAM Levothyroxine Tab [Synthroid Tab] 75 mcg PO QAM Fenofibrate [Tricor] 145 mg PO BEDTIME Metoprolol Succinate Xl [Toprol Xl] 100 mg PO QAM Linagliptin [Tradjenta] 5 mg PO QAM Aspirin EC Tab 81 mg PO QAM Sucroferric Oxyhydroxide [Velphoro Chew Tab] 500 mg PO DAILY predniSONE TAB [PredniSONE] 10 mg PO QAM Insulin Aspart [NovoLOG] See Protocol SUBCUT BID Atorvastatin [Lipitor] 20 mg PO BEDTIME Duloxetine HCl [Cymbalta] 60 mg PO QAM Furosemide 80 mg PO BID Pregabalin [Lyrica] 150 mg PO BID levETIRAcetam [Keppra] 1,500 mg PO BID Oxycodone HCl/Acetaminophen [Percocet 7.5-325 mg Tablet] 1 each PO Q4H PRN # 20 PRN Reason: Pain - Follow Up or Referral Follow Up: Jennifer Dominguez MD [Physician] - - Forms/Instructions Exam - Constitutional Vitals: Period Temp Pulse Resp BP Sys/Briseno Pulse Ox Last 24 Hr 96.5 F-98.0 F 67-93 18-20 139-153/66-84 92-98 General appearance: over weight - Head Head exam: Present: normocephalic, atraumatic - Eye Eye exam: Present: EOMI Pupils: Present: NAKUL - ENT ENT exam: Present: normal exam - Neck Neck exam: Present: normal inspection - Respiratory Respiratory exam: Present: clear to auscultation bilaterally. Absent: rhonchi, wheezes - Cardiovascular Cardiovascular exam: Present: regular rate and rhythm - GI/Abdominal GI/Abdominal exam: Present: normal bowel sounds, soft. Absent: tenderness, rebound - Extremities Exam Extremities exam: Present: normal inspection - Back Exam Back exam: Present: normal inspection - Neurological Exam Neurological exam: Present: alert, oriented X3 - Psychiatric Psychiatric exam: Present: normal affect, normal mood - Skin Skin exam: Present: warm, intact Discharge Results Labs on day of discharge: Labs from last 24 hours 04/15/17 04/15/17 04/15/17 06:55 06:00 06:00 WBC 7.9 RBC 3.27 L Hgb 10.2 L Hct 31.0 L MCV 94.8 MCH 31 MCHC 32.9 RDW 13.6 Plt Count 161 MPV 12.0 Neut % (Auto) 58.6 Lymph % (Auto) 24.2 Izard % (Auto) 12.6 Eos % (Auto) 2.0 Baso % (Auto) 0.8 Neut # (Auto) 4.7 Lymph # (Auto) 1.9 Izard # (Auto) 1.0 H Eos # (Auto) 0.2 Baso # (Auto) 0.1 Immature Gran % 1.8 Nucleated RBC % 0.9 Immature Gran # 0.14 Nucleated RBCs # 0.07 Immature Plt Fraction 0.0 Sodium 136 Potassium 5.2 H Chloride 98 Carbon Dioxide 29 Anion Gap 14.2 BUN 41 H Creatinine 6.90 H GFR Calculation 11 BUN/Creatinine Ratio 5.00 L Glucose 223 H POC Glucose 209 H Calculated Osmolality 288.0 Calcium 8.0 L Magnesium 2.4 04/14/17 04/14/17 04/14/17 21:23 16:05 15:34 WBC RBC Hgb Hct MCV MCH MCHC RDW Plt Count MPV Neut % (Auto) Lymph % (Auto) Izard % (Auto) Eos % (Auto) Baso % (Auto) Neut # (Auto) Lymph # (Auto) Izard # (Auto) Eos # (Auto) Baso # (Auto) Immature Gran % Nucleated RBC % Immature Gran # Nucleated RBCs # Immature Plt Fraction Sodium Potassium Chloride Carbon Dioxide Anion Gap BUN Creatinine GFR Calculation BUN/Creatinine Ratio Glucose POC Glucose 347 H 189 H 197 H Calculated Osmolality Calcium Magnesium DS: Provider Date of admission: 04/11/17 16:44 Primary care physician: . No PCP Attending physician on admission: Navid Palomares MD Consults: 04/11/17 16:44 Consult to Physician [CONS] Routine Comment: ESRD Consulting Provider: Maulik Govea Jr. 04/11/17 16:55 Consult to Physician [CONS] Routine Comment: groin pain Consulting Provider: Abdias Candelaria 04/11/17 18:18 Consult to Pastoral Services [CONS] Routine Comment: Pastoral Screen: Request Dynamometer Repairer Visit 04/13/17 07:19 Consult to Physician [CONS] Routine Comment: Evaluate left groin pain Consulting Provider: Jennifer Dominguez Person Notified: ALLYSON Date Notified: 04/13/17 Time Notified: 08:13 Discharging clinician: Faizan Chandra MD
[2017-04-15 11:50] VITALS: BP 138/90
--- NOTE | 2017-04-15 12:10 | Physician Query Form ---
CLICK EDIT DOCUMENT TO SELECT QUERY ANSWER --> OK --> SIGN Winsome Read RN, CCDS Certified Clinical Pollution Control Engineer W) [phone] (f) [phone] [email or web address] PROVIDERS: Make your selection(s) from the choices in EACH section by typing an "x" and enter comments in the comment section. Please use your independent medical judgment in providing your response. This request does not imply that any particular answer is desired or expected. CLINICAL INDICATORS: (Providers should not edit this section) The medical record indicates that the patient was admitted with abd pain, "emptying study on the gastric scan shows severe gastroparesis", "liver lesions "-- previous bx "reports of the biopsy were granulomatous tissue" and urology was consulted for the groin pain. As the attending MD can you please clarify the most significant cause of the abd pain or reason for this admission? Based on the above, could you clarify the appropriate diagnosis, if significant , that supports the above abnormalities and additional evaluation, monitoring, and/or treatment rendered: ( ) abd pain due to hepatic granulomas ( ) abd pain due to groin pain ( ) abd pain due to gastric paresis ( x) abd pain due to DM gastric paresis ( ) abd pain due to ( ) Other, please specify: ( ) Clinically unable to determine COMMENTS: PLEASE ALSO DOCUMENT RESPONSE IN PROGRESS NOTES AND/OR DISCHARGE SUMMARY Use of terms such as suspected, likely, or probable (associated with a specific diagnosis that is being evaluated, monitored, or treated as if it exists) are acceptable and can be restated in the discharge summary if not ruled out. MTDD
== END 2017-04-15 13:40 | disposition home or self-care (01) | DRG 73 ==
LOC: N.ED 11:07 → N.EDINP 16:44 → SUATTDRO 16:44 → N.2E 18:05
PROVIDERS: ADMIT Internal Medicine; ATTEND Internal Medicine

== ENCOUNTER 2017-05-09 03:00 | Inpatient (IN) ==
[2017-05-09] MEDS ORDERED: ASPIRIN 325 MG TABLET PO STA (03:37)
[2017-05-09] MEDS ORDERED: NITROGLYCERIN 2% OINT 1 INCH/GM PACK TOP STA (03:38)
[2017-05-09] MEDS ORDERED: ASPIRIN 325 MG TABLET ONE (03:54)
[2017-05-09] MEDS ORDERED: NITROGLYCERIN 2% OINT 1 INCH/GM PACK TOP ONE (03:54)
[2017-05-09 03:55] LABS: Basophils # 0.1 10*3/uL (0.0-0.2); Basophils % 0.7 % (0.0-0.8); Eosinophils # 0.2 10*3/uL (0.0-0.87); Eosinophils % 1.5 % (0.00-10.9); Hematocrit 29.6 VOL% (42.0-52.0); Hemoglobin 9.8 GM/DL (14.0-18.0); Lymphocytes # 2.3 10*3/uL (1.4-4.0); Lymphocytes % 21.7 % (21.2-54.2); Mean Corpuscular HGB Conc 33.1 GM/DL (32-36); Mean Corpuscular Hemoglobin 31 PG (27-34); Mean Corpuscular Volume 93.1 FL (87-102); Mean Platelet Volume 11.7 FL (9.6-12.0); Monocytes # 0.9 10*3/uL (0.11-0.8); Monocytes % 8.7 % (1.7-12.7); Neutrophils # 6.9 10*3/uL (1.4-7.4); Neutrophils % 66.4 % (38.7-73.9); Platelet Count 148 T/CUMM (130-400); Red Blood Count 3.18 MC/CUMM (3.8-5.5); Red Cell Distribution Width 13.5 % (9.3-17.3); White Blood Count 10.4 T/CUMM (4-12)
[2017-05-09 04:20] LABS: Albumin 3.1 G/DL (3.4-5.0); Bilirubin,Total 0.5 MG/DL (0.2-1.0); Calcium 7.8 MG/DL (8.5-10.1); Osmolality,Calculated 285.4 MOS/KG (273-304); Potassium 4.1 MMOL/L (3.5-5.1); Total Protein 6.9 G/DL (6.4-8.3)
--- NOTE | 2017-05-09 05:42 | Emergency Department Note ---
Arrival - Arrival Chief Complaint: Chest Pain Stated Complaint: chest pains ED Nursing Triage Note: TO ER PER WHEELCHAIR WITH C/O CHEST PAIN. STATES MIDSTERNAL CHEST PAIN NON RADIATING. REPORTS WOKE HIM FROM HIS SLEEP. TOOK PEPTOBISMAL THINKING IT WAS REFLUX BUT DID NOT HELP.HISTORY OF NC. Mode of Arrival: Wheelchair Time Seen by Provider: 05/09/17 03:27 - History of Present Illness HPI Narrative: This is a 41-year-old white male with chronic renal failure on hemodialysis Wednesday hyperlipidemia, type 2 diabetes, hypertension, and coronary artery disease for which he underwent stent placement in 2012 presents with chest pressure which woke him from sleep just prior to arrival. There is no shortness of breath diaphoresis nor vomiting. Allergies/Adverse Reactions: Allergies Allergy/AdvReac Type Severity Reaction Status Date / Time tramadol [From Ultram] AdvReac Severe Seizure Verified 05/09/17 03:23 hydrocodone AdvReac Intermediate Vomiting Verified 05/09/17 03:23 sulfamethoxazole AdvReac Mild KIDNEY Verified 05/09/17 03:23 [From Bactrim] REACTION STATED BY PT MOTHER trimethoprim [From Bactrim] AdvReac Mild KIDNEY Verified 05/09/17 03:23 REACTION STATED BY PT MOTHER Home Medications: Home Medications Medication Instructions Recorded Confirmed Type Dexlansoprazole [Dexilant] 60 mg PO QAM 02/07/15 04/11/17 History Ranitidine Tab [Zantac Tab] 150 mg PO BID 02/07/15 04/11/17 History Fenofibrate [Tricor] 145 mg PO BEDTIME 03/10/16 04/11/17 History Levothyroxine Tab [Synthroid Tab] 75 mcg PO QAM 03/10/16 04/11/17 History Linagliptin [Tradjenta] 5 mg PO QAM 03/10/16 04/11/17 History Metoprolol Succinate Xl [Toprol Xl] 100 mg PO QAM 03/10/16 04/11/17 History Aspirin EC Tab 81 mg PO QAM 08/12/16 04/11/17 History Furosemide 80 mg PO BID 08/12/16 04/11/17 History Pregabalin [Lyrica] 150 mg PO BID 09/29/16 04/11/17 History Atorvastatin [Lipitor] 20 mg PO BEDTIME 04/06/17 04/11/17 History Insulin Aspart [NovoLOG] See Protocol SUBCUT BID 04/06/17 04/11/17 History Sucroferric Oxyhydroxide [Velphoro 500 mg PO DAILY 04/06/17 04/11/17 History Chew Tab] levETIRAcetam [Keppra] 1,500 mg PO BID 04/06/17 04/11/17 History predniSONE TAB [PredniSONE] 10 mg PO QAM 04/06/17 04/11/17 History Duloxetine HCl [Cymbalta] 60 mg PO QAM 04/07/17 04/11/17 History Oxycodone HCl/Acetaminophen 1 each PO Q4H PRN #20 04/08/17 04/11/17 Rx [Percocet 7.5-325 mg Tablet] Gabapentin Cap/Tab [Neurontin 300 mg PO BID #60 capsule 04/15/17 Rx Cap/Tab] Metoclopramide Tab [Reglan Tab] 5 mg PO ACHS #120 tablet 04/15/17 Rx Review of System - Review of System Constitutional: Absent: fever, night sweats Eyes: Absent: redness, vision change Head/Ears/Nose/Throat: Absent: epistaxis, nasal drainage Respiratory: Absent: respiratory distress, wheezing Cardiovascular: Absent: dyspnea on exertion, orthopnea Gastrointestinal: Absent: vomiting, diarrhea, constipation, melena Genitourinary male: Absent: dysuria, hematuria Musculoskeletal: Absent: joint swelling, lower back pain Skin: Absent: change in color, change in hair/nails Neurological: Absent: numbness, paresthesias, confusion Psychiatric: Absent: anxiety, depression Endocrine: Absent: heat intolerance, polydipsia, polyuria Hematological/Lymphatic: Absent: easy bruising, lymphadenopathy Allergic/Immunologic: Absent: urticaria, itchy eyes Medical,Surgical,& Family Hx - Medical History Cardio: History of: Cerebrovascular Disease, CAD (stent x 2), Hypertension, [place] ( 2013) Psychological: History of: Depression Neurology: History of: Migraine, Peripheral Neuropathy, Seizures No history of: Cerebrovascular Accident HEENT: History of: Ear Problem (LOST HEARING OUT OF RIGHT EAR POSS DUE TO NERVE DAMAGE STATES PT. 3YEAR AGO) Endocrine: History of: Diabetes Mellitus (IDDM), Diabetes Mellitus (NIDDM), Dyslipidemia, Thyroid Disorder (UNDERACTIVE THYROID PROBLEMS) Respiratory: History of: Obstructive Sleep Apnea, Pneumonia Comment Only: Respiratory Problems (MEDIASTINOSCOPY) Renal: History of: Dialysis (M,W,F) Genitourinary: History of: Kidney Stones Gastrointestinal: History of: GERD, Hemorrhoids, Liver Problems (biopsy ok), Pancreatitis, GI Problems (NAUSEA AND VOMITING) Musculoskeletal: History of: Back/Neck Problems, Musculoskeletal Problems Other: History of: Miscellaneous Medical Problems (SARCOIDOSIS) - Surgical History Cardiac Surgeries: Sugical HX of: Cardiac Catheterization, Vascular Access Devices (fistula 2014) Thoracic Surgeries: Surgical HX of;: Lithotripsy (02/16/15) HEENT Surgeries: Surgical HX of: Eye Surgery (LASER SURGERY 2013) Abdominal Surgeries: Surgical HX of: Colonoscopy Reproductive Surgeries: Surgical HX of;: Genitourinary Surgery Orthopedic Surgeries: Surgical HX of;: Orthopedic Surgery (hip surgery secondary to fracture) - Family History Family History: Reports;: Family Diabetes (FATHER), Family Hypertension (MOTHER , FATHER, GRANDPARNENTS MATERNAL AND PATERNAL) Comment Only: Family Cancer (maternal grandfather(prostate)), Family Stroke ( Maternal grandmother) - Social History Smoking Status: Former smoker Frequency of Alcohol Use: None Type of Drug Use: None Exam Vital Signs: Vital Signs Temperature 97.5 F L 05/09/17 03:05 Pulse Rate 79 05/09/17 03:05 Respiratory Rate 18 05/09/17 04:00 Blood Pressure 165/108 05/09/17 03:05 O2 Sat by Pulse Oximetry 100 05/09/17 03:05 - General Exam limited due to: ALOC - Head Head exam: Present: atraumatic, normocephalic - Eye Eye exam: Present: PERRL, EOMI - ENT ENT exam: Present: normal exam, normal oropharynx - Neck Neck exam: Present: normal inspection, full ROM - Chest Chest inspection: Present: normal inspection, symmetric chest wall rise - Respiratory Respiratory exam: Present: normal lung sounds bilaterally - Cardiovascular Cardiovascular exam: Present: regular rate, normal rhythm - Abdominal Exam Abdominal exam: Present: soft, normal bowel sounds - Extremities Exam Extremities exam: Present: normal inspection, full ROM - Back Exam Back exam: Present: normal inspection, full ROM - Neurological Exam Neurological exam: Present: alert, oriented X3 - Psychiatric Psychiatric exam: Present: normal affect, normal mood - Skin Skin exam: Present: warm, dry Course Course Narrative: The troponin was slightly elevated. The echocardiogram did not show any acute ischemic problem. Remainder the laboratory tests were either normal or at her baseline. However because of the patient's history of coronary artery disease and stent placement seems reasonable patient be admitted to the hospital for further evaluation and treatment. The case was discussed with hospitalist who agreed to admit the patient. Results - Labs CBC & BMP: 05/09/17 03:33 05/09/17 03:33 Disposition Clinical Impression: Chest pain Disposition: Disch To Home/Self Care
--- NOTE | 2017-05-09 06:21 | Hospitalist History & Physical ---
Addendum entered and electronically signed by Jennifer Tanner PA 05/09/17 11:25: 05/09/2017 patient admitted by the hospitalist service in the middle the night with substernal chest pain and shortness of breath. He is found to be in congestive heart failure with a BNP greater than 3000. Cardiology has been consulted to evaluate. Patient is also a renal patient and Dr. Canales has been consulted for patient's dialysis needs. Upon exam patient continues to have stabbing chest pain but has shortness of breath has improved. We will continue to monitor patient and await recommendations from consultants. Discussed with Dr. Olson. Original Note: <CortesClementina - Last Filed: 05/09/17 06:18> Assessment and Plan (1) Congestive heart failure (CHF) Status: Acute Assessment and plan: Will give Lasix and topical NTG Consult cardiology and nephrology BNP >3000 Current Visit: Yes (2) Chest pain Status: Acute Current Visit: Yes (3) CAD (coronary artery disease) Status: Chronic Current Visit: No (4) Chronic renal insufficiency, stage III (moderate) Status: Chronic Assessment and plan: Will consult Nephrology for dialysis Current Visit: No (5) Dyslipidemia Status: Chronic Current Visit: No (6) History of myocardial infarction Status: Chronic Current Visit: No (7) Diabetes Status: Chronic Assessment and plan: SSI Current Visit: No (8) Gastroparesis Status: Chronic Current Visit: No (9) 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 Sam who is a 41 year old male who woke up at 1AM today complaining of mid sternal chest pain. Patient described chest pain as sharp, stabbing, consistent, and non-radiating. Patient states he was short of breath but did not have any n/v/d, palpitations, or fatigue. Patient denied alleviating or aggravating factors for chest pain. He presented to the ER and received a cardiac workup. His troponin was 0.06, BNP 3215. EKG was negative. He received 1/2 inch of Nitro paste that completely relieved his pain. Patient has a history of HTN, [place] with multivessel stents and balloon angioplasty (2012, [facility]), DM, dyslipidemia, seizures, CAD, ESRD ( dialysis MWF), and gastroparesis. He fluctuates between [facility] and [facility] for his care. In the past he has been admitted for pleural effusion with adenopathy and a work up of liver lesions that resulted in hepatic sarcoidosis. More recently he was admitted for gastroparesis. His last reported EF was 35-40% in Aug 2016. He will be admitted on a telemetry bed with a cardiology consult and nephrology consult. We will trend troponins, continue topical NTG, administer 1 dose of Lasix, and await pending blood work. Home medications will be resumed once confirmed. Home Medications Medication Instructions Recorded Confirmed Type Dexlansoprazole [Dexilant] 60 mg PO QAM 02/07/15 04/11/17 History Ranitidine Tab [Zantac Tab] 150 mg PO BID 02/07/15 04/11/17 History Fenofibrate [Tricor] 145 mg PO BEDTIME 03/10/16 04/11/17 History Levothyroxine Tab [Synthroid Tab] 75 mcg PO QAM 03/10/16 04/11/17 History Linagliptin [Tradjenta] 5 mg PO QAM 03/10/16 04/11/17 History Metoprolol Succinate Xl [Toprol Xl] 100 mg PO QAM 03/10/16 04/11/17 History Aspirin EC Tab 81 mg PO QAM 08/12/16 04/11/17 History Furosemide 80 mg PO BID 08/12/16 04/11/17 History Pregabalin [Lyrica] 150 mg PO BID 09/29/16 04/11/17 History Atorvastatin [Lipitor] 20 mg PO BEDTIME 04/06/17 04/11/17 History Insulin Aspart [NovoLOG] See Protocol SUBCUT BID 04/06/17 04/11/17 History Sucroferric Oxyhydroxide [Velphoro 500 mg PO DAILY 04/06/17 04/11/17 History Chew Tab] levETIRAcetam [Keppra] 1,500 mg PO BID 04/06/17 04/11/17 History predniSONE TAB [PredniSONE] 10 mg PO QAM 04/06/17 04/11/17 History Duloxetine HCl [Cymbalta] 60 mg PO QAM 04/07/17 04/11/17 History Oxycodone HCl/Acetaminophen 1 each PO Q4H PRN #20 04/08/17 04/11/17 Rx [Percocet 7.5-325 mg Tablet] Gabapentin Cap/Tab [Neurontin 300 mg PO BID #60 capsule 04/15/17 Rx Cap/Tab] Metoclopramide Tab [Reglan Tab] 5 mg PO ACHS #120 tablet 04/15/17 Rx Allergies Allergy/AdvReac Type Severity Reaction Status Date / Time tramadol [From Ultram] AdvReac Severe Seizure Verified 05/09/17 03:23 hydrocodone AdvReac Intermediate Vomiting Verified 05/09/17 03:23 sulfamethoxazole AdvReac Mild KIDNEY Verified 05/09/17 03:23 [From Bactrim] REACTION STATED BY PT MOTHER trimethoprim [From Bactrim] AdvReac Mild KIDNEY Verified 05/09/17 03:23 REACTION STATED BY PT MOTHER Medical,Surgical,& Family Hx - Medical History Cardio: History of: Cerebrovascular Disease, CAD (stent x 2), Hypertension, [place] ( 2012) Psychological: History of: Depression Neurology: History of: Migraine, Peripheral Neuropathy, Seizures No history of: Cerebrovascular Accident HEENT: History of: Ear Problem (LOST HEARING OUT OF RIGHT EAR POSS DUE TO NERVE DAMAGE STATES PT. 3YEAR AGO) Endocrine: History of: Diabetes Mellitus (IDDM), Diabetes Mellitus (NIDDM), Dyslipidemia, Thyroid Disorder (UNDERACTIVE THYROID PROBLEMS) Respiratory: History of: Obstructive Sleep Apnea, Pneumonia Comment Only: Respiratory Problems (MEDIASTINOSCOPY) Renal: History of: Dialysis (M,W,F) Genitourinary: History of: Kidney Stones Gastrointestinal: History of: GERD, Hemorrhoids, Liver Problems (biopsy ok), Pancreatitis, GI Problems (NAUSEA AND VOMITING) Musculoskeletal: History of: Back/Neck Problems, Musculoskeletal Problems Other: History of: Miscellaneous Medical Problems (SARCOIDOSIS) - Surgical History Cardiac Surgeries: Sugical HX of: Cardiac Catheterization, Vascular Access Devices (fistula 2014) Thoracic Surgeries: Surgical HX of;: Lithotripsy (02/16/15) HEENT Surgeries: Surgical HX of: Eye Surgery (LASER SURGERY 2014) Abdominal Surgeries: Surgical HX of: Colonoscopy Reproductive Surgeries: Surgical HX of;: Genitourinary Surgery Orthopedic Surgeries: Surgical HX of;: Orthopedic Surgery (hip surgery secondary to fracture) - Family History Family History: Reports;: Family Diabetes (FATHER), Family Hypertension (MOTHER , FATHER, GRANDPARNENTS MATERNAL AND PATERNAL) Comment Only: Family Cancer (maternal grandfather(prostate)), Family Stroke ( Maternal grandmother) - Social History Smoking Status: Former smoker Frequency of Alcohol Use: None Type of Drug Use: None - Constitutional Constitutional: Absent: anorexia, chills, fatigue, fever(s), night sweats - EENT Eyes: Absent: blurry vision - Cardiovascular Cardiovascular: Present: chest pain at rest, dyspnea. Absent: edema, palpitations - Respiratory Respiratory: Present: dyspnea. Absent: cough, hemoptysis - Gastrointestinal Gastrointestinal: Absent: abdominal pain, constipation, diarrhea, dyspepsia, nausea, vomiting - Genitourinary Genitourinary: Absent: difficulty urinating Exam - Constitutional Vitals: Period Temp Pulse Resp BP Sys/Briseno Pulse Ox Last 24 Hr 97.5 F-97.5 F 73-79 16-20 150-165/90-108 100-100 General appearance: normal weight, no acute distress - Head Head exam: Present: normal inspection, normocephalic - Eye Eye exam: Present: EOMI Pupils: Present: NAKUL, normal accommodation - ENT ENT exam: Present: normal exam - Neck Neck exam: Present: normal inspection - Respiratory Respiratory exam: Present: clear to auscultation bilaterally (Respirations even and non-labored with symmetrical rise and fall of chest noted. ) - Cardiovascular Cardiovascular exam: Present: regular rate and rhythm - GI/Abdominal GI/Abdominal exam: Present: normal bowel sounds, soft. Absent: firm, tenderness - Extremities Exam Extremities exam: Present: normal capillary refill, full ROM, other (multiple bruising over arms and hands) - Back Exam Back exam: Present: normal inspection - Neurological Exam Neurological exam: Present: alert, oriented X3 (Answers questions appropriately. ) - Psychiatric Psychiatric exam: Present: flat affect - Skin Skin exam: Present: normal color, warm, dry Results - Labs CBC & BMP: 05/09/17 03:33 05/09/17 03:33 Lab Results: I have reviewed the past 24 hour labs - EKG EKG results: interpreted by JEROME - Diagnostic Findings Procedure: Chest x-ray: image reviewed by me (Cardiomegaly) <Aiden Ramirez - Last Filed: 05/09/17 07:33> Assessment and Plan (1) Chest pain Status: Resolved Assessment and plan: I saw and examined the patient in conjunction with nurse practitioner Clementina Cortes. Patient has known coronary artery disease and presented with a history of a 2 hour episode of substernal "sharp stabbing" chest pain. He did have some diaphoresis. It did not radiate. EKG and initial troponins were negative. He also has a history of chronic systolic heart failure with EF 40-45 % on most recent echo. He takes Lasix 80 mg twice daily. He has significant edema lower and upper extremities which he says is more than his usual amount. On exam lungs are clear, heart is regular rhythm no murmur and no rub, he does have significant JVD. Some IV Lasix has been ordered and he will be due for his dialysis today. Chest x-ray shows cardiomegaly and mild vascular congestion by my observation. Nephrology and cardiology have been consulted. Current Visit: No History of Present Illness History of present illness: Mr. Sam is a 41 year old male Exam - Constitutional Vitals: Period Temp Pulse Resp BP Sys/Briseno Pulse Ox Last 24 Hr 97.5 F-97.5 F 73-79 16-20 150-165/90-108 97-100 Results - Labs CBC & BMP: 05/09/17 03:33 05/09/17 03:33
[2017-05-09] MEDS ORDERED: oxyCODONE/ACETAMINOPHEN 5-325 MG TABLET PO PRN ×2 (06:22→11:24)
[2017-05-09] MEDS ORDERED: DOCUSATE SODIUM 100 MG CAPSULE PO PRN (06:22)
[2017-05-09] MEDS ORDERED: ACETAMINOPHEN 325 MG TABLET PO PRN (06:22)
[2017-05-09] MEDS ORDERED: FUROSEMIDE 100 MG/10 ML VIAL IV ONE (06:22)
[2017-05-09] MEDS ORDERED: GLUCAGON 1 MG VIAL IM PRN (06:22)
[2017-05-09] MEDS ORDERED: DEXTROSE 50% 25 GM/50 ML SYRINGE IV PRN (06:22)
[2017-05-09] MEDS ORDERED: ONDANSETRON 4 MG/2 ML VIAL IV PRN (06:22)
[2017-05-09 07:34] LABS: Magnesium 2.1 MG/DL (1.8-2.4); Risk Ratio 5.46; Thyroid Stimulating Hormone 4.21 uIU/ml (0.358-3.74); VLDL CHOLESTEROL 35.2 MG/DL
[2017-05-09] MEDS ORDERED: INSULIN LISPRO 100 UNIT/ML SUBCUT SCH (08:00)
[2017-05-09] MEDS: PANTOPRAZOLE 40 MG TABLET PO SCH (08:42)
[2017-05-09] MEDS: NITROGLYCERIN 2% OINT 1 INCH/GM PACK TOP SCH ×2 (08:42→21:08)
[2017-05-09] MEDS: ENOXAPARIN 30 MG/0.3 ML SYRINGE SUBCUT SCH (08:42)
--- NOTE | 2017-05-09 09:07 | Cardiology Consult Note ---
Assessment and Plan - Time spent with patient Time spent with patient: Greater than 30 minutes (1) Chest pain Status: Acute Assessment and plan: Differential diagnosis would include muscle skeletal pain, GI, or CAD. The fact that he had a heart cath done 7 months ago and it showed no critical disease makes it less likely that this is ACS. Plan/recommend: Serial isoenzymes --if positive enzymes, may need recath. If negative or flat isoenzymes, he probably does not need a recath at this point Proton pump inhibitor if not on GE reflux precautions Treat chest wall pain-tramadol, Tylenol, gabapentin I encouraged him to get and use his CPAP whenever he sleeps EKG every morning 3 Echo/Doppler-if it is been over 4 months since last done -to evaluate heart failure and LV systolic function Continue antiplatelet medicines as he has known CAD Continue treatment for lipids and diabetes and other risk factors for coronary disease, as you are doing Thank you for allowing me to participate in this patient's care Current Visit: Yes (2) Congestive heart failure (CHF) Status: Acute Current Visit: Yes (3) GERD (gastroesophageal reflux disease) Status: Acute Current Visit: No (4) Mediastinal adenopathy Status: Acute Current Visit: No (5) Obstructive sleep apnea Status: Acute Current Visit: No (6) Renal failure Status: Acute Current Visit: No (7) Sarcoidosis Status: Acute Current Visit: No (8) CAD (coronary artery disease) Problem details: Known dz, hx of unable to pass stent in past. Followed by cardiology. Status: Chronic Current Visit: No (9) Chronic kidney disease Status: Chronic Current Visit: No Qualifiers: Chronic kidney disease stage: stage 4 (severe) Qualified Code(s): N18.4 - Chronic kidney disease, stage 4 (severe) (10) Diabetes Status: Chronic Current Visit: No (11) Dyslipidemia Status: Chronic Current Visit: No (12) End stage renal disease on dialysis Problem details: Routine CHD tomorrow. UF to EDW as tolerated by hemodynamics. Status: Chronic Current Visit: No (13) Gastroparesis Status: Chronic Current Visit: No (14) Hypertension Status: Chronic Current Visit: No (15) Hypothyroidism Status: Chronic Current Visit: No (16) Seizure disorder Status: Chronic Current Visit: No History of Present Illness - Data of Consult Patient: known to practice within the last 3 years Consult date: 05/09/17 Requesting Physician: Neftaly Olson - Consult Narrative Reason for consult: "I Had chest pain for 2 hours" History of present illness: Mr. Sam is a 41 year old male PCP:? Business Dean: Dr. Dakota Hopkins Dispute Coordinator:? Dr. Maulik Govea The patient has known coronary disease. However, he had chest pain in August [address] Gomez heart catheterization. There were 40-50% narrowing but nothing significant causes chest pain. His LVEF was reduced, about 35%. He was let go home. He saw Dr. Dakota Hopkins in follow-up just last or so. He has been apparently doing fairly well. Earlier this morning he had chest pain. It was brought with deep breathing. Nothing made it better. Last about 2 hours. It was a sharp stabbing pain. Is in his mid chest. There was some diaphoresis but no shortness breath or nausea. He came in, he was admitted, I was asked to see him. He does have orthopnea and PND. No palpitations, syncope, cough wheezing or phlegm. No dysphagia or odynophagia. He does have GE reflux. Past medical history: Obstructive sleep apnea-apparently uses CPAP Heart failure, probably systolic, may be also some diastolic LV systolic dysfunction End-stage renal disease, on hemodialysis Diabetes Coronary disease History prior stent Does have some generalized edema CC: Neftaly Olson MD - Home Medications and Allergies Home Medications: Home Medications Medication Instructions Recorded Confirmed Type Dexlansoprazole [Dexilant] 60 mg PO DAILY 02/07/15 05/09/17 History Fenofibrate [Tricor] 145 mg PO BEDTIME 03/10/16 05/09/17 History Levothyroxine Tab [Synthroid Tab] 75 mcg PO QAM 03/10/16 05/09/17 History Linagliptin [Tradjenta] 5 mg PO DAILY 03/10/16 05/09/17 History Metoprolol Succinate Xl [Toprol Xl] 100 mg PO DAILY 03/10/16 05/09/17 History Aspirin EC Tab 81 mg PO DAILY 08/12/16 05/09/17 History Furosemide 80 mg PO BID 08/12/16 05/09/17 History Pregabalin [Lyrica] 150 mg PO BID 09/29/16 05/09/17 History Atorvastatin [Lipitor] 20 mg PO BEDTIME 04/06/17 05/09/17 History Insulin Aspart [NovoLOG] See Protocol SUBCUT BID 04/06/17 05/09/17 History Sucroferric Oxyhydroxide [Velphoro 500 mg PO DAILY 04/06/17 05/09/17 History Chew Tab] levETIRAcetam [Keppra] 1,500 mg PO BID 04/06/17 05/09/17 History predniSONE TAB [PredniSONE] 10 mg PO DAILY 04/06/17 05/09/17 History Duloxetine HCl [Cymbalta] 60 mg PO DAILY 04/07/17 05/09/17 History Oxycodone HCl/Acetaminophen 1 each PO Q4H PRN #20 04/08/17 05/09/17 Rx [Percocet 7.5-325 mg Tablet] Gabapentin Cap/Tab [Neurontin 300 mg PO BID #60 capsule 04/15/17 05/09/17 Rx Cap/Tab] Metoclopramide Tab [Reglan Tab] 5 mg PO ACHS #120 tablet 04/15/17 05/09/17 Rx Allergies/Adverse Reactions: Allergies Allergy/AdvReac Type Severity Reaction Status Date / Time tramadol [From Ultram] AdvReac Severe Seizure Verified 05/09/17 03:23 hydrocodone AdvReac Intermediate Vomiting Verified 05/09/17 03:23 sulfamethoxazole AdvReac Mild KIDNEY Verified 05/09/17 03:23 [From Bactrim] REACTION STATED BY PT MOTHER trimethoprim [From Bactrim] AdvReac Mild KIDNEY Verified 05/09/17 03:23 REACTION STATED BY PT MOTHER 12 point system: reviewed and no additional remarkable complaints except as stated (A 12 point review of systems is negative except for as mentioned in HPI. ) Medical,Surgical,& Family Hx - Medical History Cardio: History of: Cerebrovascular Disease, CAD (stent x 2), Hypertension, [place] ( 2013) Psychological: History of: Depression Neurology: History of: Migraine, Peripheral Neuropathy, Seizures No history of: Cerebrovascular Accident HEENT: History of: Ear Problem (LOST HEARING OUT OF RIGHT EAR POSS DUE TO NERVE DAMAGE STATES PT. 3YEAR AGO) Endocrine: History of: Diabetes Mellitus (IDDM), Diabetes Mellitus (NIDDM), Dyslipidemia, Thyroid Disorder (UNDERACTIVE THYROID PROBLEMS) Respiratory: History of: Obstructive Sleep Apnea, Pneumonia Comment Only: Respiratory Problems (MEDIASTINOSCOPY) Renal: History of: Dialysis (M,W,F) Genitourinary: History of: Kidney Stones Gastrointestinal: History of: GERD, Hemorrhoids, Liver Problems (biopsy ok), Pancreatitis, GI Problems (NAUSEA AND VOMITING) Musculoskeletal: History of: Back/Neck Problems, Musculoskeletal Problems Other: History of: Miscellaneous Medical Problems (SARCOIDOSIS) - Surgical History Cardiac Surgeries: Sugical HX of: Cardiac Catheterization, Vascular Access Devices (fistula 2014) Thoracic Surgeries: Surgical HX of;: Lithotripsy (02/16/15) Patient denies;: Lobectomy Neurologic Surgeries: Patient denies: Neurologic Surgery HEENT Surgeries: Surgical HX of: Eye Surgery (LASER SURGERY 2013) Abdominal Surgeries: Surgical HX of: Colonoscopy Reproductive Surgeries: Surgical HX of;: Genitourinary Surgery Orthopedic Surgeries: Surgical HX of;: Orthopedic Surgery (hip surgery secondary to fracture) - Family History Family History: Reports;: Family Diabetes (FATHER), Family Hypertension (MOTHER , FATHER, GRANDPARNENTS MATERNAL AND PATERNAL) Comment Only: Family Cancer (maternal grandfather(prostate)), Family Stroke ( Maternal grandmother) - Social History Smoking Status: Former smoker Frequency of Alcohol Use: None Type of Drug Use: None Functional capacity: independent ambulation Physical Examination Vital Signs Temp Pulse Resp BP Pulse Ox 97.5 F L 79 20 165/108 100 05/09/17 03:05 05/09/17 03:05 05/09/17 03:05 05/09/17 03:05 05/09/17 03:05 Exam: HEENT: Pupils equal, reactive to light and accommodation Neck: NoJVD or bruit Lungs clear to auscultation Heart: Regular rhythm rate with normal S1 and S2. Apical S4, 1/6 systolic ejection murmur along left lower sternal border. Abdomen: No hepatosplenomegaly Spine/extremities: No clubbing, cyanosis, or edema Neuro: Nonfocal except he does have decreased hearing. Psych: No depression or anxiety Equivocal chest wall tenderness at the site where he says it hurt this morning Result/EKG - Labs CBC & BMP: 05/09/17 03:33 05/09/17 03:33 Lab Results: I have reviewed the past 24 hour labs Labs: Laboratory Results - last 24 hr 05/09/17 05/09/17 05/09/17 03:33 03:33 03:33 WBC 10.4 RBC 3.18 L Hgb 9.8 L Hct 29.6 L MCV 93.1 MCH 31 MCHC 33.1 RDW 13.5 Plt Count 148 MPV 11.7 Neut % (Auto) 66.4 Lymph % (Auto) 21.7 Blanco % (Auto) 8.7 Eos % (Auto) 1.5 Baso % (Auto) 0.7 Neut # (Auto) 6.9 Lymph # (Auto) 2.3 Blanco # (Auto) 0.9 H Eos # (Auto) 0.2 Baso # (Auto) 0.1 Immature Gran % 1.0 Nucleated RBC % 0.0 Immature Gran # 0.10 Nucleated RBCs # 0.00 Immature Plt Fraction 0.0 Sodium 133 L Potassium 4.1 Chloride 96 L Carbon Dioxide 31 Anion Gap 10.1 BUN 52 H Creatinine 6.80 H GFR Calculation 12 BUN/Creatinine Ratio 7.00 Glucose 198 H POC Glucose Hemoglobin A1c Calculated Osmolality 285.4 Calcium 7.8 L Magnesium Total Bilirubin 0.50 AST 25 ALT 31 Alkaline Phosphatase 100 Troponin I B-Natriuretic Peptide 3215 H Total Protein 6.9 Albumin 3.1 L Globulin 3.8 H Albumin/Globulin Ratio 0.8 L Triglycerides Cholesterol LDL Cholesterol VLDL Cholesterol HDL Cholesterol Heart Disease Risk Ratio Free T4 TSH 3rd Generation 05/09/17 05/09/17 05/09/17 03:33 06:46 06:46 WBC RBC Hgb Hct MCV MCH MCHC RDW Plt Count MPV Neut % (Auto) Lymph % (Auto) Blanco % (Auto) Eos % (Auto) Baso % (Auto) Neut # (Auto) Lymph # (Auto) Blanco # (Auto) Eos # (Auto) Baso # (Auto) Immature Gran % Nucleated RBC % Immature Gran # Nucleated RBCs # Immature Plt Fraction Sodium Potassium Chloride Carbon Dioxide Anion Gap BUN Creatinine GFR Calculation BUN/Creatinine Ratio Glucose POC Glucose Hemoglobin A1c Calculated Osmolality Calcium Magnesium 2.1 Total Bilirubin AST ALT Alkaline Phosphatase Troponin I 0.060 H B-Natriuretic Peptide Total Protein Albumin Globulin Albumin/Globulin Ratio Triglycerides 176 H Cholesterol 131 LDL Cholesterol 74.0 VLDL Cholesterol 35.2 HDL Cholesterol 24 L Heart Disease Risk Ratio 5.46 Free T4 1.02 TSH 3rd Generation 4.210 H 05/09/17 05/09/17 06:46 07:48 WBC RBC Hgb Hct MCV MCH MCHC RDW Plt Count MPV Neut % (Auto) Lymph % (Auto) Blanco % (Auto) Eos % (Auto) Baso % (Auto) Neut # (Auto) Lymph # (Auto) Blanco # (Auto) Eos # (Auto) Baso # (Auto) Immature Gran % Nucleated RBC % Immature Gran # Nucleated RBCs # Immature Plt Fraction Sodium Potassium Chloride Carbon Dioxide Anion Gap BUN Creatinine GFR Calculation BUN/Creatinine Ratio Glucose POC Glucose 140 H Hemoglobin A1c 9.4 H Calculated Osmolality Calcium Magnesium Total Bilirubin AST ALT Alkaline Phosphatase Troponin I B-Natriuretic Peptide Total Protein Albumin Globulin Albumin/Globulin Ratio Triglycerides Cholesterol LDL Cholesterol VLDL Cholesterol HDL Cholesterol Heart Disease Risk Ratio Free T4 TSH 3rd Generation - Diagnostic Findings Procedure: Chest x-ray: report reviewed by me - EKG EKG results: interpreted by me Quality Measures - Stroke Symptom Onset Unknown: No Specialty Discharge - Follow Up or Referrals Follow up with: Alexander Hopkins MD [Physician] -
--- NOTE | 2017-05-09 09:34 | EKG Report ---
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
[2017-05-09] MEDS ORDERED: GABAPENTIN 300 MG CAPSULE PO SCH (11:30)
[2017-05-09] MEDS ORDERED: NON-FORMULARY MEDICATION (Dexlansoprazole [Dexilant] 60 MG) PO SCH (11:30)
--- NOTE | 2017-05-09 11:50 | Nephrology Consult Note ---
History of Present Illness Chief complaint: End-stage renal disease History of present illness: Mr. Sam is a 41 year old male patient with a history of end-stage renal disease due to hypertension diabetes also has a history of coronary artery disease and a stent placed approximately 4 years ago. Patient presented with chest pain that woke him from sleep about 1:00 this morning. Patient has slight bump in his troponin level. Cardiology is been consult for further management. Nephrology is consulted for renal issues. Patient dialyzes on a Wednesday schedule at the [facility]. Compliance with dialysis is never been an issue for this patient. At this time was scheduled for patient to have dialysis on tomorrow. Home Medications Medication Instructions Recorded Confirmed Type Dexlansoprazole [Dexilant] 60 mg PO DAILY 02/07/15 05/09/17 History Fenofibrate [Tricor] 145 mg PO BEDTIME 03/10/16 05/09/17 History Levothyroxine Tab [Synthroid Tab] 75 mcg PO QAM 03/10/16 05/09/17 History Linagliptin [Tradjenta] 5 mg PO DAILY 03/10/16 05/09/17 History Metoprolol Succinate Xl [Toprol Xl] 100 mg PO DAILY 03/10/16 05/09/17 History Aspirin EC Tab 81 mg PO DAILY 08/12/16 05/09/17 History Furosemide 80 mg PO BID 08/12/16 05/09/17 History Pregabalin [Lyrica] 150 mg PO BID 09/29/16 05/09/17 History Atorvastatin [Lipitor] 20 mg PO BEDTIME 04/06/17 05/09/17 History Insulin Aspart [NovoLOG] See Protocol SUBCUT BID 04/06/17 05/09/17 History Sucroferric Oxyhydroxide [Velphoro 500 mg PO DAILY 04/06/17 05/09/17 History Chew Tab] levETIRAcetam [Keppra] 1,500 mg PO BID 04/06/17 05/09/17 History predniSONE TAB [PredniSONE] 10 mg PO DAILY 04/06/17 05/09/17 History Duloxetine HCl [Cymbalta] 60 mg PO DAILY 04/07/17 05/09/17 History Oxycodone HCl/Acetaminophen 1 each PO Q4H PRN #20 04/08/17 05/09/17 Rx [Percocet 7.5-325 mg Tablet] Gabapentin Cap/Tab [Neurontin 300 mg PO BID #60 capsule 04/15/17 05/09/17 Rx Cap/Tab] Metoclopramide Tab [Reglan Tab] 5 mg PO ACHS #120 tablet 04/15/17 05/09/17 Rx Allergies Allergy/AdvReac Type Severity Reaction Status Date / Time tramadol [From Ultram] AdvReac Severe Seizure Verified 05/09/17 03:23 hydrocodone AdvReac Intermediate Vomiting Verified 05/09/17 03:23 sulfamethoxazole AdvReac Mild KIDNEY Verified 05/09/17 03:23 [From Bactrim] REACTION STATED BY PT MOTHER trimethoprim [From Bactrim] AdvReac Mild KIDNEY Verified 05/09/17 03:23 REACTION STATED BY PT MOTHER Medical,Surgical,& Family Hx - Medical History Cardio: History of: Cerebrovascular Disease, CAD (stent x 2), Hypertension, [place] ( 2012) Psychological: History of: Depression Neurology: History of: Migraine, Peripheral Neuropathy, Seizures No history of: Cerebrovascular Accident HEENT: History of: Ear Problem (LOST HEARING OUT OF RIGHT EAR POSS DUE TO NERVE DAMAGE STATES PT. 3YEAR AGO) Endocrine: History of: Diabetes Mellitus (IDDM), Diabetes Mellitus (NIDDM), Dyslipidemia, Thyroid Disorder (UNDERACTIVE THYROID PROBLEMS) Respiratory: History of: Obstructive Sleep Apnea, Pneumonia Comment Only: Respiratory Problems (MEDIASTINOSCOPY) Renal: History of: Dialysis (M,W,F) Genitourinary: History of: Kidney Stones Gastrointestinal: History of: GERD, Hemorrhoids, Liver Problems (biopsy ok), Pancreatitis, GI Problems (NAUSEA AND VOMITING) Musculoskeletal: History of: Back/Neck Problems, Musculoskeletal Problems Other: History of: Miscellaneous Medical Problems (SARCOIDOSIS) - Surgical History Cardiac Surgeries: Sugical HX of: Cardiac Catheterization, Vascular Access Devices (fistula 2014) Thoracic Surgeries: Surgical HX of;: Lithotripsy (02/16/15) Patient denies;: Lobectomy Neurologic Surgeries: Patient denies: Neurologic Surgery HEENT Surgeries: Surgical HX of: Eye Surgery (LASER SURGERY 2013) Abdominal Surgeries: Surgical HX of: Colonoscopy Reproductive Surgeries: Surgical HX of;: Genitourinary Surgery Orthopedic Surgeries: Surgical HX of;: Orthopedic Surgery (hip surgery secondary to fracture) - Family History Family History: Reports;: Family Diabetes (FATHER), Family Hypertension (MOTHER , FATHER, GRANDPARNENTS MATERNAL AND PATERNAL) Comment Only: Family Cancer (maternal grandfather(prostate)), Family Stroke ( Maternal grandmother) - Social History Smoking Status: Former smoker Frequency of Alcohol Use: None Type of Drug Use: None Review of Systems Constitutional: fatigue, no lethargy Cardiovascular: chest pain at rest, dyspnea Gastrointestinal: no abdominal pain, no change in bowel habits Exam - Vital Signs Vital signs: Period Temp Pulse Resp BP Sys/Briseno Pulse Ox Last 24 Hr 97.2 F-97.9 F 73-79 16-20 150-167/84-108 96-100 - General Appearance General appearance: well-developed, well-nourished, fatigue EENT: ATNC Neck: supple Respiratory: clear Cardiology: no edema, regular rate, regular rhythm Gastrointestinal: normoactive bowel sounds, no tenderness Integumentary: no rash Neurologic: alert and oriented x3 Musculoskeletal: no clubbing Psychiatric: mood/affect appropriate, cooperative Results - Labs CBC & BMP: 05/09/17 03:33 05/09/17 03:33 Assessment and Plan (1) Chest pain Status: Acute Current Visit: No (2) End stage renal disease Status: Chronic Assessment and plan: Continue with scheduled hemodialysis on Wednesday schedule. Current Visit: No (3) Insulin dependent diabetes mellitus Status: Chronic Current Visit: No
--- NOTE | 2017-05-09 12:06 | XRay Report ---
History: Chest pain Date: 05/09/2017 Study: Chest x-ray AP portable Comparison exam: April 06, 2017 There is continued cardiomegaly. The pulmonary vasculature is borderline prominent. The mediastinal contours are unchanged. Shallow inspiration. There is no gross pleural effusion. The lungs are generally clear. Osseous structures are similar. Impression: Cardiomegaly without overt CHF. Shallow breath. No significant change from the previous study PROCEDURE INTERPRETED AT [facility] DEPARTMENT OF RADIOLOGY Final Report Signed by: Dr. Ayah Capps
[2017-05-09] MEDS: levETIRAcetam 500 MG TABLET PO SCH ×2 (12:19→21:08)
[2017-05-09] MEDS: PREGABALIN 75 MG CAPSULE PO SCH ×2 (12:19→21:08)
[2017-05-09] MEDS: ASPIRIN EC 81 MG TABLET PO SCH (12:19)
[2017-05-09] MEDS: sitaGLIPtin 25 MG TABLET PO SCH (12:20)
[2017-05-09] MEDS: predniSONE 10 MG TABLET PO SCH (12:20)
[2017-05-09] MEDS: LEVOTHYROXINE 75 MCG TABLET PO SCH (12:20)
[2017-05-09] MEDS: DULoxetine 30 MG CAPSULE PO SCH (12:20)
[2017-05-09] MEDS: METOCLOPRAMIDE 5 MG TABLET PO SCH ×3 (12:20→21:08)
[2017-05-09] MEDS: METOPROLOL SUCCINATE XL 100 MG TABLET PO SCH (12:20)
[2017-05-09] MEDS: GABAPENTIN 300 MG CAPSULE PO SCH ×3 (13:22→21:08)
[2017-05-09] MEDS: FUROSEMIDE 40 MG/4 ML VIAL IV SCH (15:43)
[2017-05-09] MEDS: ACETAMINOPHEN 325 MG TABLET PO SCH ×2 (15:43→21:18)
[2017-05-09 16:38] LABS: Troponin I Only 0.055 NG/ML (0.00-0.045)
[2017-05-09] MEDS: INSULIN LISPRO 100 UNIT/ML SUBCUT SCH (17:21)
--- NOTE | 2017-05-09 20:23 | ECHO Report ---
[facility] Sam Exam Date: 05/09/2017 10:43 Referring Physician: Technologist: Karime Bowden RDCS Age: 41 Ht (in): 71 Wt (lb): 235 Gender: M Exam Location: [facility] Echo Indications: Chest pain, unspecified, Shortness of breath, Heart failure, unspecified, CAD with previous stent, Chronic kidney disease, stage 3 (moderate), End stage renal disease, Dyslipidemia, IDDM, Seizures BP: 155 / 84 HR: 71 Rhythm: Sinus Technical Quality: Good IMPRESSIONS Moderate left ventricular hypertrophy. Left ventricular ejection fraction is estimated at 45 %. Mildly increased right ventricular size, with moderate decreased RV systolic function. The right atrium is mildly enlarged. The left atrium is mildly enlarged. Mild mitral valve regurgitation. Mild tricuspid valve regurgitation. Tricuspid regurgitation velocities suggest a PAP of 61 mmHg. Mild pulmonary valve regurgitation. MEASUREMENTS (Male / Female) Normal Values 2D ECHO LV Diastolic Diameter PLAX 5.6 cm 4.2 - 5.9 / 3.9 - 5.3 cm LV Systolic Diameter PLAX 4.4 cm LV Fractional Shortening PLAX 21.8 % IVS Diastolic Thickness 1.7 cm 0.6 - 1.0 / 0.6 - 0.9 cm LVPW Diastolic Thickness 1.6 cm 0.6 - 1.0 / 0.6 - 0.9 cm RV Internal Dim ED PLAX 3.3 cm Aortic Root Diameter 3.7 cm LA Systolic Diameter LX 4.6 cm 3.0 - 4.0 / 2.7 - 3.8 cm DOPPLER TR Peak Velocity 358.0 cm/s TR Peak Gradient 51.3 mmHg FINDINGS Left Ventricle Normal left ventricular cavity size. Moderate left ventricular hypertrophy. Left ventricular ejection fraction is estimated at 45 %. Right Ventricle Mildly increased right ventricular size, with moderate decreased RV systolic function. Right Atrium The right atrium is mildly enlarged. Left Atrium The left atrium is mildly enlarged. Mitral Valve Morphologically normal mitral valve. Mild mitral valve regurgitation. Aortic Valve Morphologically normal aortic valve without significant sclerosis or stenosis. There is no aortic regurgitation. Tricuspid Valve Morphologically normal tricuspid valve. Mild tricuspid valve regurgitation. Tricuspid regurgitation velocities suggest a PAP of 61 mmHg. Pulmonic Valve Morphologically normal pulmonic valve. Mild pulmonary valve regurgitation. Pericardium Normal pericardium without effusion. Aorta Normal ascending aorta dimension. Daniel Kraft MD (Electronically Signed) Final Date: 09 May 2017 20:22
[2017-05-09] MEDS: ATORVASTATIN 20 MG TABLET PO SCH (21:08)
[2017-05-09] MEDS: FENOFIBRATE 145 MG TABLET PO SCH (21:08)
[2017-05-10 04:55] LABS: Basophils # 0.1 10*3/uL (0.0-0.2); Basophils % 0.7 % (0.0-0.8); Eosinophils # 0.1 10*3/uL (0.0-0.87); Eosinophils % 0.9 % (0.00-10.9); Hemoglobin 9.6 GM/DL (14.0-18.0); Immature Granulocytes % 1.3 %; Immature Granulocytes Absolute 0.12 #; Lymphocytes # 2.3 10*3/uL (1.4-4.0); Lymphocytes % 24.7 % (21.2-54.2); Mean Corpuscular HGB Conc 33.1 GM/DL (32-36); Mean Corpuscular Hemoglobin 31 PG (27-34); Mean Corpuscular Volume 92.7 FL (87-102); Mean Platelet Volume 12.8 FL (9.6-12.0); Monocytes # 0.7 10*3/uL (0.11-0.8); Monocytes % 7.9 % (1.7-12.7); NRBC # 0.02 10*3/uL; Neutrophils # 5.9 10*3/uL (1.4-7.4); Neutrophils % 64.5 % (38.7-73.9); Platelet Count 137 T/CUMM (130-400); Red Blood Count 3.13 MC/CUMM (3.8-5.5); Red Cell Distribution Width 13.9 % (9.3-17.3); White Blood Count 9.1 T/CUMM (4-12)
[2017-05-10 05:24] LABS: Albumin 3.1 G/DL (3.4-5.0); Bilirubin,Total 1.3 MG/DL (0.2-1.0); Calcium 8.1 MG/DL (8.5-10.1); Osmolality,Calculated 292.4 MOS/KG (273-304)
[2017-05-10] MEDS: ENOXAPARIN 30 MG/0.3 ML SYRINGE SUBCUT SCH (08:46)
[2017-05-10] MEDS: FUROSEMIDE 40 MG/4 ML VIAL IV SCH (08:46)
[2017-05-10] MEDS: LEVOTHYROXINE 75 MCG TABLET PO SCH (08:47)
[2017-05-10] MEDS: PREGABALIN 75 MG CAPSULE PO SCH ×2 (08:48→21:14)
[2017-05-10] MEDS: GABAPENTIN 300 MG CAPSULE PO SCH ×3 (08:48→21:15)
[2017-05-10] MEDS: sitaGLIPtin 25 MG TABLET PO SCH (08:48)
[2017-05-10] MEDS: METOCLOPRAMIDE 5 MG TABLET PO SCH ×4 (08:48→21:14)
[2017-05-10] MEDS: METOPROLOL SUCCINATE XL 100 MG TABLET PO SCH (08:49)
[2017-05-10] MEDS: predniSONE 10 MG TABLET PO SCH (08:49)
[2017-05-10] MEDS: ACETAMINOPHEN 325 MG TABLET PO SCH ×2 (08:49→21:15)
[2017-05-10] MEDS: DULoxetine 30 MG CAPSULE PO SCH (08:49)
[2017-05-10] MEDS: PANTOPRAZOLE 40 MG TABLET PO SCH (08:49)
[2017-05-10] MEDS: levETIRAcetam 500 MG TABLET PO SCH ×2 (09:24→21:14)
[2017-05-10] MEDS: INSULIN LISPRO 100 UNIT/ML SUBCUT SCH ×2 (10:03→16:38)
[2017-05-10] MEDS: ASPIRIN EC 81 MG TABLET PO SCH (10:04)
[2017-05-10] MEDS: NITROGLYCERIN 2% OINT 1 INCH/GM PACK TOP SCH ×2 (10:04→21:15)
--- NOTE | 2017-05-10 11:53 | Nephrology Progress Note ---
Nephrology - PN: Subj Interval history: Patient is resting. No chest pain. No other acute changes. Plan for hemodialysis today. Exam (PN)-Nephrology - Vital Signs Vital signs: Period Temp Pulse Resp BP Sys/Briseno Pulse Ox Last 24 Hr 96.4 F-97.2 F 65-75 16-20 142-163/73-96 95-99 - General Appearance General appearance: well-developed, well-nourished Neck: supple Respiratory: clear Cardiology: regular rate, regular rhythm Gastrointestinal: normoactive bowel sounds, no tenderness Neurologic: alert and oriented x3 Musculoskeletal: no clubbing - Lab 05/10/17 04:09 05/10/17 04:09 Most recent lab results Calcium 8.1 MG/DL (8.5-10.1) L 05/10/17 04:09 Magnesium 2.1 MG/DL (1.8-2.4) 05/09/17 06:46 Assessment and Plan (1) Chest pain Status: Acute Current Visit: No (2) End stage renal disease Status: Chronic Assessment and plan: Continue with scheduled hemodialysis on Wednesday schedule. Patient currently dialyzes at the [facility]. We will get a hepatitis panel on this patient today. Current Visit: No (3) Insulin dependent diabetes mellitus Status: Chronic Current Visit: No Specialty Discharge - Follow Up or Referrals Follow up with: Alexander Hopkins MD [Physician] -
[2017-05-10 13:19] LABS: Hepatitis A Ab IgM Quant 0.05 Index; Hepatitis A Ab IgM Result Negative (Negative); Hepatitis B Core IgM Quant 0.16 Index; Hepatitis B Core IgM Result Negative (Negative); Hepatitis B Surface Ag Quant 0.51 Index; Hepatitis B Surface Ag Result Negative (Negative); Hepatitis C Virus Ab Quant 0.04 Index; Hepatitis C Virus Ab Result Negative (Negative)
[2017-05-10] MEDS ORDERED: LIDOCAINE/PRILOCAINE CREAM 5 GM TUBE TOP ONE (13:45)
--- NOTE | 2017-05-10 14:23 | Cardiology Progress Note ---
Assessment and Plan - Time spent with patient Time spent with patient: Less than 30 minutes (1) Chest pain Status: Acute Assessment and plan: See plan of care listed below. Current Visit: Yes (2) CAD (coronary artery disease) Status: Chronic Assessment and plan: See plan of care listed below. Current Visit: No (3) Congestive heart failure (CHF) Status: Acute Current Visit: Yes (4) End stage renal disease on dialysis Status: Chronic Assessment and plan: See plan of care listed below. Current Visit: No (5) Obstructive sleep apnea Status: Chronic Assessment and plan: See plan of care listed below. Current Visit: No (6) Diabetes Status: Chronic Assessment and plan: See plan of care listed below. Current Visit: No (7) Hypertension Status: Chronic Assessment and plan: See plan of care listed below. Current Visit: No (8) Hypothyroidism Status: Chronic Assessment and plan: See plan of care listed below. Current Visit: No (9) Seizure disorder Status: Chronic Assessment and plan: See plan of care listed below. Current Visit: No (10) Hearing impairment Status: Chronic Assessment and plan: See plan of care listed below. Current Visit: Yes Cardiology - PN: Subj Interval history: E Learning Designer: Dr. Hopkisn Cash Applications Clerk: Dr. Govea SUMMARY: Mr. Sam is a 41 year old male who presented with complaints of a 2 hour episode of chest pain. He has known coronary disease, end-stage kidney disease on hemodialysis, diabetes, obstructive sleep apnea, and CHF. He had chest pain in August 2016 and underwent heart catheterization which revealed 40-50% narrowing but nothing significant. His ejection fraction was reduced, about 35%. He has had flat isoenzymes and has had no further episodes of chest discomfort. 2016: Mr. Sam reports no further episodes of chest pain since admission. He had trivial troponin elevation in the setting of end stage renal disease and no significant EKG changes. This does not seem to be ACS. He is planned for dialysis today. BNP has been elevated. Agree with IV Lasix BID. Echocardiogram revealed mildly diminished LV function. Continue aspirin, statin , beta maikel. Will await further recommendations from Dr. Singleton. IMPRESSION/PLAN: 1. CHEST PAIN: Atypical with flattened cardiac isoenzymes in the setting of kidney failure. Continue GE reflux precautions. Treat for chest wall pain per Dr. Kraft's recommendations. EKG has been normal. 2. CORONARY ARTERY DISEASE: He had chest pain in August 2016 and underwent heart catheterization which revealed 40-50% narrowing but nothing significant. His ejection fraction was reduced, about 35%. 3. CONGESTIVE HEART FAILURE: Echocardiogram revealed moderate LVH, EF 45%, mild biatrial enlargement, moderate-severe pulmonary hypertension, mild MR. 4. CHRONIC KIDNEY DISEASE ON HEMODIALYSIS: He dialyzes on MWF and is planned for dialysis today. 5. OBSTRUCTIVE SLEEP APNEA: Continue CPAP while sleeping. 6. DIABETES: Continue accuchecks ACHS and sliding scale insulin. 7. HYPERTENSION: Moderately well controlled with occasional elevated readings. Continue to monitor and adjust accordingly. 8. HYPOTHYROIDISM: Continue levothyroxine. TSH 4.210, FT4 1.02. 9. SEIZURE DISORDER: Continue seizure medication. 10. HEARING IMPAIRED: Chronic, decreased hearing. Exam (Progress Note) - Constitutional Vitals: Period Temp Pulse Resp BP Sys/Briseno Pulse Ox Last 24 Hr 96.4 F-97.2 F 65-75 16-20 142-163/73-96 95-99 Exam: General appearance: Appears well. Pleasant and cooperative. Overweight, no acute distress. Decreased hearing Head exam: Present: normal inspection, normocephalic, atraumatic. Absent: hematoma, laceration Eye exam: Present: EOMI. Absent: conjunctival injection, nystagmus, periorbital swelling, scleral icterus, laceration to eyelids, jaundice Pupils: Present: PERRL. Absent: constricted, dilated, fixed, irregular, unequal ENT exam: Present: normal exam, normal external ear exam, mucous membranes moist. Neck exam: Present: normal inspection, midline trachea. Absent: masses, lymphadenopathy, tenderness, thyromegaly, carotid bruit Respiratory exam: Present: clear to auscultation bilaterally, chest wall tenderness. Absent: accessory muscle use, rales, rhonchi, wheezing. Cardiovascular exam: Present: regular rate and rhythm. Systolic murmur. Absent : gallop, JVD, rubs GI/Abdominal exam: Present: normal bowel sounds, soft. Absent: distended, firm , hernia, mass, tenderness. Extremities exam: Present: Normal Gait, No Clubbing, No Cyanosis, Upper Extr. Pulses 2+, Lower Extr. Pulses 2+, mild BLE edema. Capillary refill less than 3 seconds. Musculoskeletal: Present: No Fluid Collection, No Pain, Normal Range of Motion Neurological exam: Present: awake, alert, oriented X3, Moves all extremities well without hemiparesis or paralysis. Grossly intact without resting or essential tremor Psychiatric exam: Present: Flat affect Skin exam: Present: normal color, warm, dry, intact. Absent: cyanosis, diaphoretic, rash, urticaria Result/EKG - Labs CBC & BMP: 05/10/17 04:09 05/10/17 04:09 Lab Results: I have reviewed the past 24 hour labs Labs: Laboratory Results - last 24 hr 05/09/17 05/09/17 05/10/17 15:35 16:30 04:09 WBC 9.1 RBC 3.13 L Hgb 9.6 L Hct 29.0 L MCV 92.7 MCH 31 MCHC 33.1 RDW 13.9 Plt Count 137 MPV 12.8 H Neut % (Auto) 64.5 Lymph % (Auto) 24.7 [place] % (Auto) 7.9 Eos % (Auto) 0.9 Baso % (Auto) 0.7 Neut # (Auto) 5.9 Lymph # (Auto) 2.3 [place] # (Auto) 0.7 Eos # (Auto) 0.1 Baso # (Auto) 0.1 Immature Gran % 1.3 Nucleated RBC % 0.2 Immature Gran # 0.12 Nucleated RBCs # 0.02 Immature Plt Fraction 0.0 Sodium Potassium Chloride Carbon Dioxide Anion Gap BUN Creatinine GFR Calculation BUN/Creatinine Ratio Glucose POC Glucose 211 H Calculated Osmolality Calcium Total Bilirubin AST ALT Alkaline Phosphatase Total Creatine Kinase 115 CK-MB (CK-2) 4.8 H Troponin I 0.055 H D B-Natriuretic Peptide Total Protein Albumin Globulin Albumin/Globulin Ratio Hepatitis A IgM Ab Hep Bs Antigen Hep B Core IgM Ab Hepatitis C Antibody 05/10/17 05/10/17 05/10/17 04:09 04:09 04:14 WBC RBC Hgb Hct MCV MCH MCHC RDW Plt Count MPV Neut % (Auto) Lymph % (Auto) [place] % (Auto) Eos % (Auto) Baso % (Auto) Neut # (Auto) Lymph # (Auto) [place] # (Auto) Eos # (Auto) Baso # (Auto) Immature Gran % Nucleated RBC % Immature Gran # Nucleated RBCs # Immature Plt Fraction Sodium 133 L Potassium 5.0 Chloride 96 L Carbon Dioxide 24 Anion Gap 18.0 H BUN 71 H Creatinine 8.10 H GFR Calculation 10 BUN/Creatinine Ratio 8.00 Glucose 214 H POC Glucose Calculated Osmolality 292.4 Calcium 8.1 L Total Bilirubin 1.30 H AST 21 ALT 24 Alkaline Phosphatase 80 Total Creatine Kinase CK-MB (CK-2) Troponin I B-Natriuretic Peptide 2467 H Total Protein 7.0 Albumin 3.1 L Globulin 3.9 H Albumin/Globulin Ratio 0.7 L Hepatitis A IgM Ab Negative Hep Bs Antigen Negative Hep B Core IgM Ab Negative Hepatitis C Antibody Negative 05/10/17 05/10/17 07:23 11:00 WBC RBC Hgb Hct MCV MCH MCHC RDW Plt Count MPV Neut % (Auto) Lymph % (Auto) [place] % (Auto) Eos % (Auto) Baso % (Auto) Neut # (Auto) Lymph # (Auto) [place] # (Auto) Eos # (Auto) Baso # (Auto) Immature Gran % Nucleated RBC % Immature Gran # Nucleated RBCs # Immature Plt Fraction Sodium Potassium Chloride Carbon Dioxide Anion Gap BUN Creatinine GFR Calculation BUN/Creatinine Ratio Glucose POC Glucose 163 H 178 H Calculated Osmolality Calcium Total Bilirubin AST ALT Alkaline Phosphatase Total Creatine Kinase CK-MB (CK-2) Troponin I B-Natriuretic Peptide Total Protein Albumin Globulin Albumin/Globulin Ratio Hepatitis A IgM Ab Hep Bs Antigen Hep B Core IgM Ab Hepatitis C Antibody - EKG EKG results: interpreted by me, sinus rhythm Quality Measures - Stroke Symptom Onset Unknown: No Specialty Discharge - Follow Up or Referrals Follow up with: Alexander Hopkins MD [Physician] -
--- NOTE | 2017-05-10 15:37 | Dialysis Note ---
Dialysis Note - Dialysis Note Patient was seen on hemodialysis, he is tolerating this well will continue his treatment unchanged.
--- NOTE | 2017-05-10 15:56 | Hospitalist Progress Note ---
Assessment and Plan (1) Diabetes Status: Chronic Assessment and plan: SSI Current Visit: No (2) Chest pain Status: Acute Assessment and plan: Cardiology assisting Obtaining dopplers for LE edema Current Visit: No (3) End stage renal disease Status: Chronic Assessment and plan: Nephrology managing Current Visit: No (4) Hypothyroidism Status: Chronic Current Visit: No (5) Congestive heart failure (CHF) Status: Acute Current Visit: Yes Hospitalist: Subjective Interval history: No acute events overnight. Patient is drowsy but does not have any complaints. Exam - Constitutional Vitals: Period Temp Pulse Resp BP Sys/Briseno Pulse Ox Last 24 Hr 96.4 F-97.2 F 65-75 16-20 142-163/73-96 95-99 General appearance: over weight - Head Head exam: Present: normocephalic, atraumatic - Eye Eye exam: Present: EOMI Pupils: Present: NAKUL - ENT ENT exam: Present: normal exam - Neck Neck exam: Present: normal inspection - Respiratory Respiratory exam: Present: clear to auscultation bilaterally. Absent: wheezes - Cardiovascular Cardiovascular exam: Present: regular rate and rhythm - GI/Abdominal GI/Abdominal exam: Present: normal bowel sounds, soft. Absent: tenderness, rebound - Extremities Exam Extremities exam: Present: normal inspection - Back Exam Back exam: Present: normal inspection - Neurological Exam Neurological exam: Present: alert, oriented X3 - Psychiatric Psychiatric exam: Present: normal affect, normal mood - Skin Skin exam: Present: warm, intact Results - Labs CBC & BMP: 05/10/17 04:09 05/10/17 04:09 Quality Measures - Stroke Symptom Onset Unknown: No Specialty Discharge - Follow Up or Referrals Follow up with: Alexander Hopkins MD [Physician] -
[2017-05-10] MEDS: CETIRIZINE 5 MG TABLET PO SCH (16:40)
--- NOTE | 2017-05-10 17:50 | Ultrasound Report ---
Exam: US venous doppler LE BI Indication: Bilateral leg swelling and pain Date: 05/10/2017 3:23 PM Findings: The right common femoral, superficial femoral, popliteal and proximal saphenous saphenous veins are patent with normal waveform phasicity and augmentation as well as complete vessel compressibility. There is no evidence of popliteal or Mohr's cyst. The left common femoral, superficial femoral, popliteal and proximal saphenous saphenous veins are patent with normal waveform phasicity and augmentation as well as complete vessel compressibility. There is no evidence of popliteal or Mohr's cyst. Impression: No evidence of deep venous thrombosis within bilateral lower extremities Ultrasound images were captured and stored. PROCEDURE INTERPRETED AT [facility] DEPARTMENT OF RADIOLOGY Final Report Signed by: Bao Parsons
[2017-05-10] MEDS: FENOFIBRATE 145 MG TABLET PO SCH (21:14)
[2017-05-10] MEDS: ATORVASTATIN 20 MG TABLET PO SCH (21:15)
[2017-05-11 04:42] LABS: Basophils # 0.1 10*3/uL (0.0-0.2); Eosinophils # 0.2 10*3/uL (0.0-0.87); Hematocrit 29.4 VOL% (42.0-52.0); Hemoglobin 9.7 GM/DL (14.0-18.0); Immature Granulocytes % 1.2 %; Lymphocytes % 24.9 % (21.2-54.2); Mean Corpuscular Hemoglobin 31 PG (27-34); Mean Corpuscular Volume 93.3 FL (87-102); Mean Platelet Volume 11.8 FL (9.6-12.0); Monocytes # 0.6 10*3/uL (0.11-0.8); Monocytes % 7.8 % (1.7-12.7); Neutrophils # 5.2 10*3/uL (1.4-7.4); Neutrophils % 63.1 % (38.7-73.9); Platelet Count 148 T/CUMM (130-400); Red Blood Count 3.15 MC/CUMM (3.8-5.5)
[2017-05-11 04:47] LABS: White Blood Count 8.2 T/CUMM (4-12)
[2017-05-11 05:21] LABS: Calcium 8.4 MG/DL (8.5-10.1); Magnesium 2.3 MG/DL (1.8-2.4); Osmolality,Calculated 289.2 MOS/KG (273-304); Potassium 4.5 MMOL/L (3.5-5.1)
[2017-05-11] MEDS ORDERED: REGADENOSON 0.4 MG/5 ML SYRINGE IV ONE (08:28)
--- NOTE | 2017-05-11 08:55 | Cardiology Progress Note ---
<Meredith Harris E - Last Filed: 05/11/17 12:34> Assessment and Plan - Time spent with patient Time spent with patient: Less than 30 minutes (1) Chest pain Status: Acute Assessment and plan: See plan of care listed below. Current Visit: Yes (2) CAD (coronary artery disease) Status: Chronic Assessment and plan: See plan of care listed below. Current Visit: No (3) Congestive heart failure (CHF) Status: Acute Current Visit: Yes (4) End stage renal disease on dialysis Status: Chronic Assessment and plan: See plan of care listed below. Current Visit: No (5) Obstructive sleep apnea Status: Chronic Assessment and plan: See plan of care listed below. Current Visit: No (6) Diabetes Status: Chronic Assessment and plan: See plan of care listed below. Current Visit: No (7) Hypertension Status: Chronic Assessment and plan: See plan of care listed below. Current Visit: No (8) Hypothyroidism Status: Chronic Assessment and plan: See plan of care listed below. Current Visit: No (9) Seizure disorder Status: Chronic Assessment and plan: See plan of care listed below. Current Visit: No (10) Hearing impairment Status: Chronic Assessment and plan: See plan of care listed below. Current Visit: Yes Cardiology - PN: Subj Interval history: Title Investigator: Dr. Hopkins Pay Station Department Manager: Dr. Govea SUMMARY: Mr. Sam is a 41 year old male who presented with complaints of a 2 hour episode of chest pain. He has known coronary disease, end-stage kidney disease on hemodialysis, diabetes, obstructive sleep apnea, and CHF. He had chest pain in August 2016 and underwent heart catheterization which revealed 40-50% narrowing but nothing significant. His ejection fraction was reduced, about 35%. He has had flat isoenzymes and has had no further episodes of chest discomfort. 2016: Mr. Sam reports no further episodes of chest pain since admission. He had trivial troponin elevation in the setting of end stage renal disease and no significant EKG changes. This does not seem to be ACS; however he does have a history of CAD. Echocardiogram revealed mildly diminished LV function with pulmonary hypertension. Venous dopplers were negative for DVT. He underwent Lexiscan cardiolite s difficulty this morning. Continue aspirin, statin, beta maikel. Labs are stable. Blood pressure has been adequately controlled today. Will await further recommendations from Dr. Singleton. IMPRESSION/PLAN: 1. CHEST PAIN: Atypical with flattened cardiac isoenzymes in the setting of kidney failure. Continue GE reflux precautions. Treat for chest wall pain per Dr. Kraft's recommendations. EKG has been normal. 2. CORONARY ARTERY DISEASE: He had chest pain in August 2016 and underwent heart catheterization which revealed 40-50% narrowing but nothing significant. His ejection fraction was reduced, about 35%. Continue ASA, statin, BB. 3. CONGESTIVE HEART FAILURE: Echocardiogram revealed moderate LVH, EF 45%, mild biatrial enlargement, pulmonary hypertension, mild MR. 4. CHRONIC KIDNEY DISEASE ON HEMODIALYSIS: He dialyzes on MWF. 5. OBSTRUCTIVE SLEEP APNEA: Chronic. 6. DIABETES: He is on accuchecks ACHS and sliding scale insulin. 7. HYPERTENSION: Fairly well controlled. Continue to monitor and adjust accordingly. 8. HYPOTHYROIDISM: On levothyroxine. TSH 4.210, FT4 1.02. 9. SEIZURE DISORDER: Continue seizure medication. 10. HEARING IMPAIRED: Chronic, decreased hearing. Exam (Progress Note) - Constitutional Vitals: Period Temp Pulse Resp BP Sys/Briseno Pulse Ox Last 24 Hr 96.5 F-98.3 F 56-69 16-20 136-171/68-96 94-98 Exam: General appearance: Appears well. Pleasant and cooperative. Overweight, no acute distress. Decreased hearing Head exam: Present: normal inspection, normocephalic, atraumatic. Absent: hematoma, laceration Eye exam: Present: EOMI. Absent: conjunctival injection, nystagmus, periorbital swelling, scleral icterus, laceration to eyelids, jaundice Pupils: Present: PERRL. Absent: constricted, dilated, fixed, irregular, unequal ENT exam: Present: normal exam, normal external ear exam, mucous membranes moist. Neck exam: Present: normal inspection, midline trachea. Absent: masses, lymphadenopathy, tenderness, thyromegaly, carotid bruit Respiratory exam: Present: clear to auscultation bilaterally, chest wall tenderness. Absent: accessory muscle use, rales, rhonchi, wheezing. Cardiovascular exam: Present: regular rate and rhythm. Systolic murmur. Absent : gallop, JVD, rubs GI/Abdominal exam: Present: normal bowel sounds, soft. Absent: distended, firm , hernia, mass, tenderness. Extremities exam: Present: Normal Gait, No Clubbing, No Cyanosis, Upper Extr. Pulses 2+, Lower Extr. Pulses 2+, mild BLE edema. Capillary refill less than 3 seconds. Musculoskeletal: Present: No Fluid Collection, No Pain, Normal Range of Motion Neurological exam: Present: awake, alert, oriented X3, Moves all extremities well without hemiparesis or paralysis. Grossly intact without resting or essential tremor Psychiatric exam: Present: Flat affect Skin exam: Present: normal color, warm, dry, intact. Absent: cyanosis, diaphoretic, rash, urticaria Result/EKG - Labs CBC & BMP: 05/11/17 04:20 05/11/17 04:20 Lab Results: I have reviewed the past 24 hour labs Labs: Laboratory Results - last 24 hr 05/10/17 05/10/17 05/10/17 04:14 11:00 15:44 WBC RBC Hgb Hct MCV MCH MCHC RDW Plt Count MPV Neut % (Auto) Lymph % (Auto) [place] % (Auto) Eos % (Auto) Baso % (Auto) Neut # (Auto) Lymph # (Auto) [place] # (Auto) Eos # (Auto) Baso # (Auto) Immature Gran % Nucleated RBC % Immature Gran # Nucleated RBCs # Immature Plt Fraction Sodium Potassium Chloride Carbon Dioxide Anion Gap BUN Creatinine GFR Calculation BUN/Creatinine Ratio Glucose POC Glucose 178 H 256 H Calculated Osmolality Calcium Magnesium Hepatitis A IgM Ab Negative Hep Bs Antigen Negative Hep B Core IgM Ab Negative Hepatitis C Antibody Negative 05/10/17 05/11/17 05/11/17 20:11 04:20 04:20 WBC 8.2 RBC 3.15 L Hgb 9.7 L Hct 29.4 L MCV 93.3 MCH 31 MCHC 33.0 RDW 14.0 Plt Count 148 MPV 11.8 Neut % (Auto) 63.1 Lymph % (Auto) 24.9 [place] % (Auto) 7.8 Eos % (Auto) 2.0 Baso % (Auto) 1.0 H Neut # (Auto) 5.2 Lymph # (Auto) 2.0 [place] # (Auto) 0.6 Eos # (Auto) 0.2 Baso # (Auto) 0.1 Immature Gran % 1.2 Nucleated RBC % 0.0 Immature Gran # 0.10 Nucleated RBCs # 0.00 Immature Plt Fraction 0.0 Sodium 134 L Potassium 4.5 Chloride 98 Carbon Dioxide 28 Anion Gap 12.5 BUN 55 H Creatinine 6.80 H GFR Calculation 12 BUN/Creatinine Ratio 8.00 Glucose 228 H POC Glucose 245 H Calculated Osmolality 289.2 Calcium 8.4 L Magnesium 2.3 Hepatitis A IgM Ab Hep Bs Antigen Hep B Core IgM Ab Hepatitis C Antibody 05/11/17 07:29 WBC RBC Hgb Hct MCV MCH MCHC RDW Plt Count MPV Neut % (Auto) Lymph % (Auto) [place] % (Auto) Eos % (Auto) Baso % (Auto) Neut # (Auto) Lymph # (Auto) [place] # (Auto) Eos # (Auto) Baso # (Auto) Immature Gran % Nucleated RBC % Immature Gran # Nucleated RBCs # Immature Plt Fraction Sodium Potassium Chloride Carbon Dioxide Anion Gap BUN Creatinine GFR Calculation BUN/Creatinine Ratio Glucose POC Glucose 178 H Calculated Osmolality Calcium Magnesium Hepatitis A IgM Ab Hep Bs Antigen Hep B Core IgM Ab Hepatitis C Antibody - EKG EKG results: interpreted by me, sinus rhythm Quality Measures - Stroke Symptom Onset Unknown: No Specialty Discharge - Follow Up or Referrals Follow up with: Alexander Hopkins MD [Physician] - <Mariusz Singleton - Last Filed: 05/11/17 19:52> Exam (Progress Note) - Constitutional Vitals: Period Temp Pulse Resp BP Sys/Briseno Pulse Ox Last 24 Hr 96.2 F-98.3 F 64-70 18-20 133-171/68-89 94-96 Result/EKG - Labs CBC & BMP: 05/11/17 04:20 05/11/17 04:20 Labs: Laboratory Results - last 24 hr 05/10/17 05/11/17 05/11/17 20:11 04:20 04:20 WBC 8.2 RBC 3.15 L Hgb 9.7 L Hct 29.4 L MCV 93.3 MCH 31 MCHC 33.0 RDW 14.0 Plt Count 148 MPV 11.8 Neut % (Auto) 63.1 Lymph % (Auto) 24.9 [place] % (Auto) 7.8 Eos % (Auto) 2.0 Baso % (Auto) 1.0 H Neut # (Auto) 5.2 Lymph # (Auto) 2.0 [place] # (Auto) 0.6 Eos # (Auto) 0.2 Baso # (Auto) 0.1 Immature Gran % 1.2 Nucleated RBC % 0.0 Immature Gran # 0.10 Nucleated RBCs # 0.00 Immature Plt Fraction 0.0 Sodium 134 L Potassium 4.5 Chloride 98 Carbon Dioxide 28 Anion Gap 12.5 BUN 55 H Creatinine 6.80 H GFR Calculation 12 BUN/Creatinine Ratio 8.00 Glucose 228 H POC Glucose 245 H Calculated Osmolality 289.2 Calcium 8.4 L Magnesium 2.3 05/11/17 05/11/17 05/11/17 07:29 11:34 15:34 WBC RBC Hgb Hct MCV MCH MCHC RDW Plt Count MPV Neut % (Auto) Lymph % (Auto) [place] % (Auto) Eos % (Auto) Baso % (Auto) Neut # (Auto) Lymph # (Auto) [place] # (Auto) Eos # (Auto) Baso # (Auto) Immature Gran % Nucleated RBC % Immature Gran # Nucleated RBCs # Immature Plt Fraction Sodium Potassium Chloride Carbon Dioxide Anion Gap BUN Creatinine GFR Calculation BUN/Creatinine Ratio Glucose POC Glucose 178 H 197 H 294 H Calculated Osmolality Calcium Magnesium
--- NOTE | 2017-05-11 08:57 | Event Note ---
Patient admitted with atypical chest pain and flat troponins for Lexiscan cardiolite due to gait instability. He has a history of seizures and lexiscan walk was utilized. Patient tolerated s difficulty at pace of 0.8mph. Patient had no significant EKG changes. Patient experienced mild dizziness upon completion of test. No chest pain, heaviness, or tightness. No syncope or seizure activity noted. Patient now to nuclear medicine for final scan. Dr. Singleton to read, interpret, and advise.
[2017-05-11] MEDS ORDERED: VELPHORO 500 MG PO SCH (09:00)
[2017-05-11] MEDS: INSULIN LISPRO 100 UNIT/ML SUBCUT SCH ×2 (09:24→16:40)
[2017-05-11] MEDS: METOPROLOL SUCCINATE XL 100 MG TABLET PO SCH (09:25)
[2017-05-11] MEDS: LEVOTHYROXINE 75 MCG TABLET PO SCH (09:25)
[2017-05-11] MEDS: sitaGLIPtin 25 MG TABLET PO SCH (09:26)
[2017-05-11] MEDS: CETIRIZINE 5 MG TABLET PO SCH (09:26)
[2017-05-11] MEDS: ASPIRIN EC 81 MG TABLET PO SCH (09:26)
[2017-05-11] MEDS: predniSONE 10 MG TABLET PO SCH (09:26)
[2017-05-11] MEDS: levETIRAcetam 500 MG TABLET PO SCH ×2 (09:26→20:32)
[2017-05-11] MEDS: ACETAMINOPHEN 325 MG TABLET PO SCH ×2 (09:26→20:31)
[2017-05-11] MEDS: DULoxetine 30 MG CAPSULE PO SCH (09:27)
[2017-05-11] MEDS: METOCLOPRAMIDE 5 MG TABLET PO SCH ×4 (09:28→20:32)
[2017-05-11] MEDS: GABAPENTIN 300 MG CAPSULE PO SCH ×3 (09:28→20:31)
[2017-05-11] MEDS: PANTOPRAZOLE 40 MG TABLET PO SCH (09:28)
[2017-05-11] MEDS: ENOXAPARIN 30 MG/0.3 ML SYRINGE SUBCUT SCH (09:28)
--- NOTE | 2017-05-11 09:38 | Hospitalist Progress Note ---
<Shira Baird - Last Filed: 05/11/17 09:49> Assessment and Plan - Time spent with patient Time spent with patient: Less than 30 minutes (1) Chest pain Status: Acute Assessment and plan: 05/11/17 - Denies currently any chest pain. Lexiscan performed this a.m. He denies chest pain or shortness of breath. Awaiting final report from Lexiscan results and will follow with Cardiology for further recommendations with care and greatly appreciate their assistance. Current Visit: Yes (2) Congestive heart failure (CHF) Status: Acute Assessment and plan: 05/11/17 ECHO reveals EF 45%,mild biatrial enlargement, pulmonary hypertension, mild MR. Cardiology is following with assistance with care. Current Visit: Yes (3) Dyslipidemia Status: Chronic Assessment and plan: 05/11/17 Continue Lipitor Current Visit: No (4) End stage renal disease on dialysis Status: Chronic Assessment and plan: 05/11/17 Chronic Renal Kidney Disease Continue Dialysis MWF. Nephrology is following and assisting with care and greatly appreciate their assistance. Current Visit: No (5) Hypertension Status: Chronic Current Visit: No Qualifiers: Hypertension type: essential hypertension Qualified Code(s): I10 - Essential (primary) hypertension (6) Hypothyroidism Status: Chronic Assessment and plan: Continue Levothyroxine. Current Visit: No (7) Insulin dependent diabetes mellitus Status: Chronic Assessment and plan: 05/11/17 Continue close monitoring. Continue sliding scale coverage. Current Visit: No (8) Obstructive sleep apnea Status: Chronic Assessment and plan: 05/11/17 Continue CPAP at bedtime. Current Visit: No (9) Seizure disorder Status: Chronic Assessment and plan: 05/11/17 Continue medications (Keppra) Current Visit: No Hospitalist: Subjective Interval history: Mr Sam seen and chart reviewed. He has completed his lexiscan this a.m. and is awaiting final results. He reports no chest pain or shortness of breath during the procedure but did report some dizziness immediately following scan. He currently is eating breakfast and denies any chest pain or shortness of breath or dizziness. Exam - Constitutional Vitals: Period Temp Pulse Resp BP Sys/Briseno Pulse Ox Last 24 Hr 96.5 F-98.3 F 56-69 16-20 136-171/68-96 94-98 General appearance: normal weight, no acute distress - Head Head exam: Present: normal inspection - Eye Eye exam: Present: EOMI Pupils: Present: NAKUL - Neck Neck exam: Present: normal inspection - Respiratory Respiratory exam: Present: clear to auscultation bilaterally. Absent: rhonchi, stridor, wheezes - Cardiovascular Cardiovascular exam: Present: regular rate and rhythm - GI/Abdominal GI/Abdominal exam: Present: normal bowel sounds, soft. Absent: tenderness, rebound - Extremities Exam Extremities exam: Present: normal inspection, full ROM. Absent: edema - Neurological Exam Neurological exam: Present: alert, oriented X3, CN II-XII intact - Psychiatric Psychiatric exam: Present: normal mood, flat affect. Absent: agitated, anxious - Skin Skin exam: Present: normal color, warm, dry Results - Labs CBC & BMP: 05/11/17 04:20 05/11/17 04:20 Lab Results: I have reviewed the past 24 hour labs - Impressions Robertoan completed this a.m. awaiting final results of procedure. Quality Measures - Stroke Symptom Onset Unknown: No Specialty Discharge - Follow Up or Referrals Follow up with: Alexander Hopkins MD [Physician] - <Faizan Chandra - Last Filed: 05/11/17 16:38> Assessment and Plan (1) Diabetes Status: Chronic Current Visit: No (2) Chest pain Status: Acute Current Visit: No (3) End stage renal disease Status: Chronic Current Visit: No (4) Hypothyroidism Status: Chronic Current Visit: No (5) Congestive heart failure (CHF) Status: Acute Current Visit: Yes Hospitalist: Subjective Interval history: Patient seen and examined independently of PARACHUTE RIGGER Baird, agree with assessment and plan as documented. Danielle scan today Exam - Constitutional Vitals: Period Temp Pulse Resp BP Sys/Briseno Pulse Ox Last 24 Hr 96.2 F-98.3 F 56-70 18-20 133-171/68-90 94-97 Results - Labs CBC & BMP: 05/11/17 04:20 05/11/17 04:20
[2017-05-11] MEDS: NITROGLYCERIN 2% OINT 1 INCH/GM PACK TOP SCH (10:47)
--- NOTE | 2017-05-11 12:01 | Nephrology Progress Note ---
Nephrology - PN: Subj Interval history: Patient is resting. No chest pain. No other acute changes. Plan for hemodialysis today. 05/11/2017. The patient is resting comfortably no acute changes. He denies any shortness of breath or chest pain. Tolerated dialysis on yesterday. Exam (PN)-Nephrology - Vital Signs Vital signs: Period Temp Pulse Resp BP Sys/Briseno Pulse Ox Last 24 Hr 96.4 F-98.3 F 56-69 18-20 133-171/68-90 94-97 - General Appearance General appearance: well-developed, well-nourished EENT: ATNC Neck: supple Respiratory: clear Cardiology: regular rate, regular rhythm Gastrointestinal: normoactive bowel sounds, no tenderness Integumentary: no rash Neurologic: alert and oriented x3, CN 3-12 intact Musculoskeletal: no deformities Psychiatric: mood/affect appropriate, cooperative - Lab 05/11/17 04:20 05/11/17 04:20 Most recent lab results Calcium 8.4 MG/DL (8.5-10.1) L 05/11/17 04:20 Magnesium 2.3 MG/DL (1.8-2.4) 05/11/17 04:20 Assessment and Plan (1) Chest pain Status: Acute Current Visit: No (2) End stage renal disease Status: Chronic Assessment and plan: Continue with scheduled hemodialysis on Wednesday schedule. Patient currently dialyzes at the [facility]. Current Visit: No (3) Insulin dependent diabetes mellitus Status: Chronic Current Visit: No Specialty Discharge - Follow Up or Referrals Follow up with: Alexander Hopkins MD [Physician] -
[2017-05-11] MEDS: PREGABALIN 75 MG CAPSULE PO SCH ×2 (12:33→20:32)
--- NOTE | 2017-05-11 17:44 | Nuclear Medicine Report ---
PHARMACOLOGICAL STRESS TEST Report interpreted and dictated by Dr. Mariusz Singleton. INDICATION: Chest pain, history of CAD, cardiomyopathy. PROCEDURE: At rest, 10 mCi of Technetium-99 labeled Sestamibi was injected and rest images were obtained. The patient was unable to exercise on the treadmill test, 0.4 mg of IV Lexiscan was injected. Post pharmacological stress, 30 mCi of Technetium-99 labeled Sestamibi was injected and post-stress images were obtained. FINDINGS: At rest, sinus rhythm, 64 beats per minute, blood pressure 128/78 mmHg. Poor R-wave progression, without significant ST-T changes. Post pharmacological stress, heart rate is 73 beats per minute, blood pressure 136/ 82 mmHg, poor R-wave progression, without significant ST-T changes. Rest and post rest gated and perfusion images were reviewed. There are no significant motion artifacts. The end-diastolic volume is 227 cc, the end-systolic volume is 160 cc, the calculated left ventricular ejection fraction is 28%. There are episodes of thickening in the apical/apical anteroseptal segment, the remaining segments are mildly hypokinetic. Perfusion images show a large area of anteroseptal/apical region of severely decreased activity, both at rest and post stress, suggestive of old myocardial disease without ischemia. In addition , there is a small area in the basal anteroseptal area of moderately decreased activity both at rest and post stress, suggestive of old myocardial disease, without ischemia. CONCLUSION: 1. ELECTRICALLY NEGATIVE PHARMACOLOGIC STRESS TEST. 2. DILATED LEFT VENTRICLE, WITH SEVERELY DEPRESSED SYSTOLIC FUNCTION. 3. EVIDENCE OF ISCHEMIC CARDIOMYOPATHY WITHOUT REVERSIBLE ISCHEMIA. 4. THIS IS A HIGH RISK TEST. Procedure performed and interpreted at [facility] Department of Radiology. [facility]
[2017-05-11] MEDS: ATORVASTATIN 20 MG TABLET PO SCH (20:31)
[2017-05-11] MEDS: hydrALAZINE 10 MG TABLET PO SCH (20:31)
[2017-05-11] MEDS: FENOFIBRATE 145 MG TABLET PO SCH (20:32)
[2017-05-12 04:00] LABS: Basophils # 0.1 10*3/uL (0.0-0.2); Basophils % 0.8 % (0.0-0.8); Eosinophils # 0.1 10*3/uL (0.0-0.87); Eosinophils % 1.5 % (0.00-10.9); Hematocrit 30.4 VOL% (42.0-52.0); Hemoglobin 9.8 GM/DL (14.0-18.0); Immature Granulocytes % 1.1 %; Immature Granulocytes Absolute 0.09 #; Mean Corpuscular HGB Conc 32.2 GM/DL (32-36); Mean Corpuscular Hemoglobin 31 PG (27-34); Mean Corpuscular Volume 95.3 FL (87-102); Mean Platelet Volume 12.4 FL (9.6-12.0); Monocytes # 0.6 10*3/uL (0.11-0.8); Monocytes % 7.6 % (1.7-12.7); NRBC # 0.02 10*3/uL; Neutrophils # 5.1 10*3/uL (1.4-7.4); Platelet Count 163 T/CUMM (130-400); Red Blood Count 3.19 MC/CUMM (3.8-5.5); Red Cell Distribution Width 13.9 % (9.3-17.3)
[2017-05-12 04:32] LABS: Calcium 8.4 MG/DL (8.5-10.1); Magnesium 2.4 MG/DL (1.8-2.4); Osmolality,Calculated 289.2 MOS/KG (273-304); Potassium 5.3 MMOL/L (3.5-5.1)
[2017-05-12] MEDS: sitaGLIPtin 25 MG TABLET PO SCH (09:03)
[2017-05-12] MEDS: METOCLOPRAMIDE 5 MG TABLET PO SCH ×4 (09:03→21:23)
[2017-05-12] MEDS: PREGABALIN 75 MG CAPSULE PO SCH ×2 (09:03→21:24)
[2017-05-12] MEDS: PANTOPRAZOLE 40 MG TABLET PO SCH (09:03)
[2017-05-12] MEDS: GABAPENTIN 300 MG CAPSULE PO SCH ×3 (09:03→21:24)
[2017-05-12] MEDS: LEVOTHYROXINE 75 MCG TABLET PO SCH (09:03)
[2017-05-12] MEDS: DULoxetine 30 MG CAPSULE PO SCH (09:04)
[2017-05-12] MEDS: ASPIRIN EC 81 MG TABLET PO SCH (09:04)
[2017-05-12] MEDS: predniSONE 10 MG TABLET PO SCH (09:04)
[2017-05-12] MEDS: ACETAMINOPHEN 325 MG TABLET PO SCH ×2 (09:04→21:24)
[2017-05-12] MEDS: CETIRIZINE 5 MG TABLET PO SCH (09:14)
[2017-05-12] MEDS: levETIRAcetam 500 MG TABLET PO SCH ×2 (09:14→21:24)
[2017-05-12] MEDS: INSULIN LISPRO 100 UNIT/ML SUBCUT SCH ×2 (09:40→17:03)
--- NOTE | 2017-05-12 12:51 | Nephrology Progress Note ---
Nephrology - PN: Subj Interval history: Patient is resting. No chest pain. No other acute changes. Plan for hemodialysis today. 05/11/2017. The patient is resting comfortably no acute changes. He denies any shortness of breath or chest pain. Tolerated dialysis on yesterday. 05/12/2017. The patient is resting comfortably no acute changes. No shortness of breath or chest pain. Exam (PN)-Nephrology - Vital Signs Vital signs: Period Temp Pulse Resp BP Sys/Briseno Pulse Ox Last 24 Hr 95.9 F-97.1 F 65-70 17-20 131-152/70-91 94-100 - General Appearance General appearance: well-developed, well-nourished EENT: ATNC Neck: supple Respiratory: clear Cardiology: no edema, regular rate, regular rhythm Gastrointestinal: normoactive bowel sounds, no tenderness Neurologic: alert and oriented x3 Musculoskeletal: no deformities, no clubbing Psychiatric: mood/affect appropriate - Lab 05/12/17 03:00 05/12/17 03:00 Most recent lab results Calcium 8.4 MG/DL (8.5-10.1) L 05/12/17 03:00 Magnesium 2.4 MG/DL (1.8-2.4) 05/12/17 03:00 Assessment and Plan (1) Chest pain Status: Acute Current Visit: No (2) End stage renal disease Status: Chronic Assessment and plan: Continue with scheduled hemodialysis on Wednesday schedule. Patient currently dialyzes at the [facility]. Current Visit: No (3) Insulin dependent diabetes mellitus Status: Chronic Current Visit: No Specialty Discharge - Follow Up or Referrals Follow up with: Alexander Hopkins MD [Physician] -
[2017-05-12] MEDS: hydrALAZINE 10 MG TABLET PO SCH ×3 (13:23→21:24)
[2017-05-12] MEDS: ISOSORBIDE MONONITRATE 30 MG TABLET PO SCH (13:46)
[2017-05-12] MEDS: METOPROLOL SUCCINATE XL 100 MG TABLET PO SCH (13:47)
[2017-05-12] MEDS: ENOXAPARIN 30 MG/0.3 ML SYRINGE SUBCUT SCH (13:47)
--- NOTE | 2017-05-12 17:02 | Hospitalist Progress Note ---
Assessment and Plan (1) Diabetes Status: Chronic Assessment and plan: SSI Current Visit: No (2) Chest pain Status: Acute Assessment and plan: Cardiology assisting Nuclear study high risk Current Visit: No (3) End stage renal disease Status: Chronic Assessment and plan: Nephrology managing Current Visit: No (4) Hypothyroidism Status: Chronic Current Visit: No (5) Congestive heart failure (CHF) Status: Chronic Current Visit: Yes Hospitalist: Subjective Interval history: No acute events overnight. Patient denies chest pain. Exam - Constitutional Vitals: Period Temp Pulse Resp BP Sys/Briseno Pulse Ox Last 24 Hr 95.9 F-97.1 F 65-71 17-20 131-168/70-91 96-100 General appearance: over weight - Head Head exam: Present: normocephalic, atraumatic - Eye Eye exam: Present: EOMI Pupils: Present: NAKUL - ENT ENT exam: Present: normal exam - Neck Neck exam: Present: normal inspection - Respiratory Respiratory exam: Present: clear to auscultation bilaterally - Cardiovascular Cardiovascular exam: Present: regular rate and rhythm - GI/Abdominal GI/Abdominal exam: Present: normal bowel sounds, soft. Absent: tenderness, rebound - Extremities Exam Extremities exam: Present: normal inspection - Back Exam Back exam: Present: normal inspection - Neurological Exam Neurological exam: Present: alert, oriented X3 - Psychiatric Psychiatric exam: Present: normal affect, normal mood - Skin Skin exam: Present: warm, intact Results - Labs CBC & BMP: 05/12/17 03:00 05/12/17 03:00 Quality Measures - Stroke Symptom Onset Unknown: No Specialty Discharge - Follow Up or Referrals Follow up with: Alexander Hopkins MD [Physician] -
--- NOTE | 2017-05-12 17:45 | Cardiology Progress Note ---
Sea Brannon Lesley, MARY, am scribing for, and in the presence of, Mariusz Singleton MD 17:45. Assessment and Plan - Time spent with patient Time spent with patient: Greater than 30 minutes (Record review, assessment, documentation) (1) Chest pain Status: Acute Assessment and plan: SEE PLAN LISTED BELOW Current Visit: No (2) Hypertension Status: Chronic Assessment and plan: SEE PLAN LISTED BELOW Current Visit: No (3) End stage renal disease Status: Chronic Assessment and plan: SEE PLAN LISTED BELOW Current Visit: No (4) End stage renal disease on dialysis Status: Chronic Current Visit: No (5) CAD (coronary artery disease) Problem details: Known dz, hx of unable to pass stent in past. Followed by cardiology. Status: Chronic Assessment and plan: SEE PLAN LISTED BELOW Current Visit: No (6) Congestive heart failure (CHF) Status: Chronic Assessment and plan: SEE PLAN LISTED BELOW Current Visit: Yes Cardiology - PN: Subj Interval history: Heat Treating Furnace Tender: Dr. Hopkins Fiscal Analyst: Dr. Govea SUMMARY: Mr. Sam is a 41 year old male who presented with complaints of a 2 hour episode of chest pain. He has known coronary disease, end-stage kidney disease on hemodialysis, diabetes, obstructive sleep apnea, and CHF. He had chest pain in August 2016 and underwent heart catheterization which revealed 40-50% narrowing but nothing significant. His ejection fraction was reduced, about 35%. He has had flat isoenzymes and has had no further episodes of chest discomfort. 2016: Mr. Sam reports no further episodes of chest pain since admission. He had trivial troponin elevation in the setting of end stage renal disease and no significant EKG changes. This does not seem to be ACS; however he does have a history of CAD. Echocardiogram revealed mildly diminished LV function with pulmonary hypertension. Venous dopplers were negative for DVT. He underwent [employer] cardiolite s difficulty this morning. Continue aspirin, statin, beta maikel. Labs are stable. Blood pressure has been adequately controlled today. 2016: Mr. Sam reports denies further episodes of chest pain or shortness of breath. He underwent hemodialysis today for end-stage renal disease. Continue aspirin, statin, beta-maikel. Labs reviewed and no change stable, sodium 134, potassium 5.3, creatinine 8.5. Blood pressure has remained stable, telemetry monitoring reveals sinus rhythm rate in the 60s. Patient will need follow-up with Dr. Hopkins upon discharge. IMPRESSION/PLAN: 1. CHEST PAIN: No ACS. Continue medical management of CAD. 2. ICM: LVEF 28%. Recent cardiac catheterization, and now, stress test showed no further options for revascularization. He is a candidate for ICD implant for primary prevention. This may be pursued as an outpatient. Given his comorbidities, a S-ICD may be the lowest risk option. No pacing or STEWARD/STEWARDESS BATH indication. 3. HTN. Hydralazine and Imdur was added, blood pressure still elevated. I would accept mild rest hypertension, to avoid issues with dialysis. 4. Follow-up with Dr. Hopkins. I will sign off, please call with further questions. Exam (Progress Note) - Constitutional Vitals: Period Temp Pulse Resp BP Sys/Briseno Pulse Ox Last 24 Hr 95.9 F-97.1 F 65-70 17-20 131-152/70-91 94-100 Exam: General: [Appears well with no apparent distress.] [Pleasant and cooperative. ] [Appears comfortable.] Decreased hearing. HEENT: [PERRL, normocephalic, atraumatic]. [Mucous membranes moist.] [No jaundice noted.] [Conjunctiva moist and clear, sclerae anicteric.] Neck: [No JVD/HJR, no thyromegaly or lymphadenopathy noted.] [ No carotid bruit appreciated.] Cardiac: [Regular rate and rhythm.] [Systolic murmur present, no rub or gallop. ] [PMI is nondisplaced.] Lungs: [Clear to auscultation without accessory muscle use to assist the respiratory pattern, chest wall tenderness.] [No oxygen required.] Abdomen: [Soft, bowel sounds normoactive.] [Nontender and nondistended.] [No abdominal bruit or thrill noted.] [No masses noted.] Musculoskeletal: [Trace edema to bilateral extremities.] [Full range of motion is noted.] Extremities: [No clubbing, cyanosis noted.] [Trace edema noted to bilateral extremities.] [Upper extremity pulses 2+.] [Lower extremity pulses 2+.] [ Capillary refill less than 3 seconds.] Skin: Warm and dry. [No unusual lesions or rashes.] [No skin breakdown appreciated.] Neuro: [Awake, alert and oriented 3.] [Moves all extremities well without hemiparesis or paralysis.] [No essential tremor is appreciated.] Result/EKG - Labs CBC & BMP: 05/12/17 03:00 05/12/17 03:00 Lab Results: I have reviewed the past 24 hour labs Labs: Laboratory Results - last 24 hr 05/11/17 05/11/17 05/12/17 15:34 19:33 03:00 WBC 8.0 RBC 3.19 L Hgb 9.8 L Hct 30.4 L MCV 95.3 MCH 31 MCHC 32.2 RDW 13.9 Plt Count 163 MPV 12.4 H Neut % (Auto) 64.0 Lymph % (Auto) 25.0 [place] % (Auto) 7.6 Eos % (Auto) 1.5 Baso % (Auto) 0.8 Neut # (Auto) 5.1 Lymph # (Auto) 2.0 [place] # (Auto) 0.6 Eos # (Auto) 0.1 Baso # (Auto) 0.1 Immature Gran % 1.1 Nucleated RBC % 0.3 Immature Gran # 0.09 Nucleated RBCs # 0.02 Immature Plt Fraction 0.0 Sodium Potassium Chloride Carbon Dioxide Anion Gap BUN Creatinine GFR Calculation BUN/Creatinine Ratio Glucose POC Glucose 294 H 218 H Calculated Osmolality Calcium Magnesium 05/12/17 05/12/17 03:00 07:41 WBC RBC Hgb Hct MCV MCH MCHC RDW Plt Count MPV Neut % (Auto) Lymph % (Auto) [place] % (Auto) Eos % (Auto) Baso % (Auto) Neut # (Auto) Lymph # (Auto) [place] # (Auto) Eos # (Auto) Baso # (Auto) Immature Gran % Nucleated RBC % Immature Gran # Nucleated RBCs # Immature Plt Fraction Sodium 134 L Potassium 5.3 H Chloride 98 Carbon Dioxide 27 Anion Gap 14.3 BUN 71 H D Creatinine 8.50 H GFR Calculation 9 BUN/Creatinine Ratio 8.00 Glucose 119 H POC Glucose 125 H Calculated Osmolality 289.2 Calcium 8.4 L Magnesium 2.4 - EKG EKG results: interpreted by me, sinus rhythm Quality Measures - Stroke Symptom Onset Unknown: No Specialty Discharge - Follow Up or Referrals Follow up with: Alexander Hopkins MD [Physician] - Areli Brannon Attila, MD, personally performed the services described in this documentation, ascribed by Cindy Osei NP in my presence, and it is both accurate and complete 745 .
[2017-05-12] MEDS: FENOFIBRATE 145 MG TABLET PO SCH (21:23)
[2017-05-12] MEDS: ATORVASTATIN 20 MG TABLET PO SCH (21:23)
[2017-05-13 06:36] LABS: Calcium 8.6 MG/DL (8.5-10.1); Magnesium 2.4 MG/DL (1.8-2.4); Osmolality,Calculated 286.2 MOS/KG (273-304); Potassium 4.7 MMOL/L (3.5-5.1)
[2017-05-13] MEDS: levETIRAcetam 500 MG TABLET PO SCH (09:41)
[2017-05-13] MEDS: PANTOPRAZOLE 40 MG TABLET PO SCH (09:41)
[2017-05-13] MEDS: METOPROLOL SUCCINATE XL 100 MG TABLET PO SCH (09:41)
[2017-05-13] MEDS: ACETAMINOPHEN 325 MG TABLET PO SCH (09:41)
[2017-05-13] MEDS: predniSONE 10 MG TABLET PO SCH (09:41)
[2017-05-13] MEDS: METOCLOPRAMIDE 5 MG TABLET PO SCH ×2 (09:41→12:16)
[2017-05-13] MEDS: ASPIRIN EC 81 MG TABLET PO SCH (09:41)
[2017-05-13] MEDS: GABAPENTIN 300 MG CAPSULE PO SCH (09:41)
[2017-05-13] MEDS: hydrALAZINE 10 MG TABLET PO SCH (09:42)
[2017-05-13] MEDS: PREGABALIN 75 MG CAPSULE PO SCH (09:42)
[2017-05-13] MEDS: ISOSORBIDE MONONITRATE 30 MG TABLET PO SCH (09:42)
[2017-05-13] MEDS: LEVOTHYROXINE 75 MCG TABLET PO SCH (09:42)
[2017-05-13] MEDS: DULoxetine 30 MG CAPSULE PO SCH (09:42)
[2017-05-13] MEDS: sitaGLIPtin 25 MG TABLET PO SCH (09:42)
[2017-05-13] MEDS: INSULIN LISPRO 100 UNIT/ML SUBCUT SCH (09:45)
[2017-05-13] MEDS: CETIRIZINE 5 MG TABLET PO SCH (09:45)
[2017-05-13] MEDS: ENOXAPARIN 30 MG/0.3 ML SYRINGE SUBCUT SCH (09:45)
[2017-05-13 11:24] VITALS: BP 140/75
--- NOTE | 2017-05-13 11:24 | Discharge Summary ---
<Shira Baird - Last Filed: 05/13/17 14:53> Hospital Course - Hospital Course Hospital Course: Mr Sam 41 y/o w/PMHx hypertension, Diabetes, CAD, CRF (dialysis MWF), Depression, Migraine, presented to the ED 05/09/17 for c/o Chest Pain with out radiation. IN ED was found to have CHF with BNP 3215, troponin 0.060, BUN 52, Creatinine 6.80. Hospital Services was consulted and admitted patient. Started lasix, topical NTG, consult cardiology and nephrology. Venous Doppler: no evidence of DVT. Cardiology Consult as: repeat cardiac enzymes improved, ECHO EF 45%; recommend to continue medical management of cardiac disease. Stress test performed and patient tolerated. He is a candidate for ICD implant for primary prevention and will need to follow up with Dr. Hopkins. Today 05/13/17 Patient is stable and feeling better. He will be discharged home. He will need to follow up with Nephrology, he will need to continue planned hemodialysis as scheduled. He will need to follow up with Cardiology ( DR Hopkins). He will need to follow up with Primary Care Physician. Diagnosis - Discharge Diagnosis (1) Chest pain Status: Acute (2) Congestive heart failure (CHF) Status: Chronic (3) Dyslipidemia Status: Chronic (4) End stage renal disease on dialysis Status: Chronic (5) Hypertension Status: Chronic (6) Hypothyroidism Status: Chronic (7) Insulin dependent diabetes mellitus Status: Chronic (8) Obstructive sleep apnea Status: Chronic (9) Seizure disorder Status: Chronic Specialty Discharge - Follow Up or Referrals Follow up with: Alvaro Bridges DO [Physician] - 1 Week (Nurse to make appt for pt to be seen within 1 week of discharge date. If over the weekend contact Debbie Virgen @ and leave a voicemail for them to contact pt wednesday morning. ) Alexander Hopkins MD [Physician] - 06/11/17 8:10 am Discharge Plan - Discharge Data Disposition: Disch To Home/Self Care - Discharge Medications New Isosorbide Mononitrate [Imdur] 15 mg PO DAILY #30 tablet hydrALAZINE TAB [Apresoline Tab] 10 mg PO TID #90 tablet Continue Dexlansoprazole [Dexilant] 60 mg PO DAILY Levothyroxine Tab [Synthroid Tab] 75 mcg PO QAM Fenofibrate [Tricor] 145 mg PO BEDTIME Metoprolol Succinate Xl [Toprol Xl] 100 mg PO DAILY Linagliptin [Tradjenta] 5 mg PO DAILY Aspirin EC Tab 81 mg PO DAILY Sucroferric Oxyhydroxide [Velphoro Chew Tab] 500 mg PO DAILY predniSONE TAB [PredniSONE] 10 mg PO DAILY Insulin Aspart [NovoLOG] See Protocol SUBCUT BID Atorvastatin [Lipitor] 20 mg PO BEDTIME Duloxetine HCl [Cymbalta] 60 mg PO DAILY Metoclopramide Tab [Reglan Tab] 5 mg PO ACHS #120 tablet Pregabalin [Lyrica] 150 mg PO BID levETIRAcetam [Keppra] 1,500 mg PO BID Oxycodone HCl/Acetaminophen [Percocet 7.5-325 mg Tablet] 1 each PO Q4H PRN # 20 PRN Reason: Pain Changed Gabapentin Cap/Tab [Neurontin Cap/Tab] 300 mg PO TID #90 capsule Discontinued Furosemide 80 mg PO BID - Follow Up or Referral Follow Up: Alvaro Bridges DO [Physician] - 1 Week (Nurse to make appt for pt to be seen within 1 week of discharge date. If over the weekend contact Debbie Virgen @[phone] and leave a voicemail for them to contact pt wednesday. ) Alexander Hopkins MD [Physician] - 06/11/17 8:10 am - Forms/Instructions Instructions: Heart Failure (DC), Chest Pain (DC) Exam - Constitutional Vitals: Period Temp Pulse Resp BP Sys/Briseno Pulse Ox Last 24 Hr 96.4 F-98.4 F 65-71 16-20 136-181/75-90 94-98 Discharge Results Labs on day of discharge: Labs from last 24 hours 05/13/17 05/13/17 05/13/17 11:07 07:20 04:47 Sodium 134 L Potassium 4.7 Chloride 98 Carbon Dioxide 27 Anion Gap 13.7 BUN 54 H Creatinine 7.20 H GFR Calculation 11 BUN/Creatinine Ratio 7.00 Glucose 167 H POC Glucose 196 H 158 H Calculated Osmolality 286.2 Calcium 8.6 Magnesium 2.4 05/12/17 05/12/17 20:40 15:00 Sodium Potassium Chloride Carbon Dioxide Anion Gap BUN Creatinine GFR Calculation BUN/Creatinine Ratio Glucose POC Glucose 252 H 274 H Calculated Osmolality Calcium Magnesium DS: Provider Date of admission: 05/09/17 05:03 Primary care physician: . No PCP Attending physician on admission: Aiden Ramirez MD Consults: 05/09/17 06:22 Consult to Physician [CONS] Routine Comment: chest pain; hx NC/stents Consulting Provider: Anamaria Byrd Person Notified: Date Notified: 05/09/17 Time Notified: 08:11 Consult to Physician [CONS] Routine Comment: dialysis MWF Consulting Provider: Maulik Govea Jr. Person Notified: DR. GOVEA Date Notified: 05/09/17 Time Notified: 08:09 05/09/17 07:16 Consult to Pastoral Services [CONS] Routine Comment: Pastoral Screen: Request Fluid Designer Visit Pastoral Screen Source of Request: Family Discharging clinician: Shira Baird NP <Faizan Chandra - Last Filed: 05/13/17 17:10> Hospital Course - Time spent with patient Time with patient DS: Greater than 30 minutes (40) Diagnosis - Discharge Diagnosis (1) Diabetes Status: Chronic (2) Chest pain Status: Resolved (3) End stage renal disease Status: Chronic (4) Hypothyroidism Status: Chronic (5) Congestive heart failure (CHF) Status: Chronic Discharge Plan - Discharge Data Condition at Discharge: Stable Discharge Diet: diabetic diet, heart healthy Activity: increase activity as tolerated Hygiene: no restrictions Weight Bearing at Discharge: weight bear as tolerated Contact your physician if you experience:: fever over 101, Shortness of breath Exam - Constitutional General appearance: over weight - Head Head exam: Present: normocephalic, atraumatic - Eye Eye exam: Present: EOMI Pupils: Present: NAKUL - ENT ENT exam: Present: normal exam - Neck Neck exam: Present: normal inspection - Respiratory Respiratory exam: Present: clear to auscultation bilaterally. Absent: rhonchi, wheezes - Cardiovascular Cardiovascular exam: Present: regular rate and rhythm - GI/Abdominal GI/Abdominal exam: Present: normal bowel sounds, soft. Absent: tenderness, rebound - Extremities Exam Extremities exam: Present: normal inspection - Back Exam Back exam: Present: normal inspection - Neurological Exam Neurological exam: Present: alert, oriented X3 - Psychiatric Psychiatric exam: Present: normal affect, normal mood - Skin Skin exam: Present: warm, intact
== END 2017-05-13 13:57 | disposition home or self-care (01) | DRG 291 ==
LOC: N.ED 03:00 → N.EDINP 05:03 → SUATTDRO 05:03 → N.TELES 06:01
PROVIDERS: ADMIT Family Medicine; ATTEND Internal Medicine

== ENCOUNTER 2017-10-10 17:10 | Inpatient (IN) ==
[2017-10-10 20:10] LABS: Basophils # 0.1 10*3/uL (0.0-0.2); Basophils % 0.7 % (0.0-0.8); Eosinophils # 0.1 10*3/uL (0.0-0.87); Eosinophils % 1.2 % (0.00-10.9); Hematocrit 32.6 VOL% (42.0-52.0); Hemoglobin 10.2 GM/DL (14.0-18.0); Immature Granulocytes % 0.4 %; Immature Granulocytes Absolute 0.04 #; Lymphocytes # 1.2 10*3/uL (1.4-4.0); Mean Corpuscular HGB Conc 31.3 GM/DL (32-36); Mean Corpuscular Hemoglobin 28 PG (27-34); Mean Corpuscular Volume 88.8 FL (87-102); Mean Platelet Volume 10.9 FL (9.6-12.0); Monocytes # 0.8 10*3/uL (0.11-0.8); Monocytes % 7.7 % (1.7-12.7); Neutrophils # 8.5 10*3/uL (1.4-7.4); Platelet Count 182 T/CUMM (130-400); Red Blood Count 3.67 MC/CUMM (3.8-5.5); Red Cell Distribution Width 13.8 % (9.3-17.3); White Blood Count 10.8 T/CUMM (4-12)
[2017-10-10 20:25] LABS: Albumin 3.3 G/DL (3.4-5.0); Bilirubin,Total 0.6 MG/DL (0.2-1.0); Calcium 9.2 MG/DL (8.5-10.1); Osmolality,Calculated 281.1 MOS/KG (273-304); Potassium 5.5 MMOL/L (3.5-5.1); Total Protein 7.1 G/DL (6.4-8.3)
[2017-10-10] MEDS ORDERED: LEVOFLOXACIN INJ 500 MG in PREMIX 1 EACH IV SCH (23:45)
[2017-10-10] MEDS ORDERED: DEXTROSE 50% 25 GM/50 ML VIAL IV PRN (23:54)
[2017-10-10] MEDS ORDERED: GLUCAGON 1 MG VIAL IM PRN (23:54)
[2017-10-11] MEDS ORDERED: ONDANSETRON 4 MG/2 ML VIAL ONE ×3 (00:24→12:32)
[2017-10-11] MEDS ORDERED: MORPHINE 2 MG/1 ML SYRINGE ONE ×3 (00:24→12:32)
[2017-10-11] MEDS ORDERED: LEVOFLOXACIN INJ 100 ML IV ONE (00:25)
[2017-10-11] MEDS: ONDANSETRON 4 MG/2 ML VIAL IV PRN ×4 (00:45→21:20)
[2017-10-11] MEDS: MORPHINE 2 MG/1 ML SYRINGE IV PRN ×4 (00:45→21:22)
[2017-10-11 05:47] LABS: Basophils # 0.1 10*3/uL (0.0-0.2); Basophils % 0.8 % (0.0-0.8); Eosinophils # 0.2 10*3/uL (0.0-0.87); Eosinophils % 1.8 % (0.00-10.9); Hematocrit 28.3 VOL% (42.0-52.0); Hemoglobin 8.8 GM/DL (14.0-18.0); Immature Granulocytes % 0.6 %; Immature Granulocytes Absolute 0.06 #; Lymphocytes # 1.8 10*3/uL (1.4-4.0); Lymphocytes % 17.3 % (21.2-54.2); Mean Corpuscular HGB Conc 31.1 GM/DL (32-36); Mean Corpuscular Hemoglobin 28 PG (27-34); Mean Corpuscular Volume 90.1 FL (87-102); Mean Platelet Volume 11.3 FL (9.6-12.0); Monocytes % 10.2 % (1.7-12.7); Neutrophils # 7.1 10*3/uL (1.4-7.4); Neutrophils % 69.3 % (38.7-73.9); Platelet Count 180 T/CUMM (130-400); Red Blood Count 3.14 MC/CUMM (3.8-5.5); Red Cell Distribution Width 13.9 % (9.3-17.3); White Blood Count 10.2 T/CUMM (4-12)
[2017-10-11] MEDS: INSULIN LISPRO 100 UNIT/ML SUBCUT SCH ×5 (06:12→23:48)
[2017-10-11 06:24] LABS: Bilirubin,Total 0.6 MG/DL (0.2-1.0); Calcium 8.4 MG/DL (8.5-10.1); Total Protein 6.5 G/DL (6.4-8.3)
[2017-10-11 06:33] LABS: Potassium 6.1 MMOL/L (3.5-5.1)
[2017-10-11] MEDS ORDERED: LIDOCAINE/PRILOCAINE CREAM 5 GM TUBE TOP STA (08:43)
[2017-10-11] MEDS ORDERED: PANTOPRAZOLE 40 MG TABLET PO ONE (08:45)
[2017-10-11] MEDS ORDERED: GABAPENTIN 300 MG CAPSULE ONE (08:45)
[2017-10-11] MEDS: hydrALAZINE 10 MG TABLET PO SCH ×2 (08:53→21:24)
[2017-10-11] MEDS: METOCLOPRAMIDE 5 MG TABLET PO SCH ×4 (08:54→21:24)
[2017-10-11] MEDS: CARVEDILOL 25 MG TABLET PO SCH ×2 (08:54→21:24)
[2017-10-11] MEDS: GABAPENTIN 300 MG CAPSULE PO SCH ×2 (08:54→21:25)
[2017-10-11] MEDS: PANTOPRAZOLE 40 MG TABLET PO SCH ×2 (08:54→21:24)
[2017-10-11] MEDS: LEVOTHYROXINE 75 MCG TABLET PO SCH (08:54)
[2017-10-11] MEDS ORDERED: NON-FORMULARY MEDICATION (Dexlansoprazole [Dexilant] 60 MG) PO SCH (09:00)
[2017-10-11] MEDS ORDERED: levETIRAcetam 500 MG TABLET ONE (09:05)
[2017-10-11] MEDS: levETIRAcetam 500 MG TABLET PO SCH ×2 (09:06→21:24)
[2017-10-11] MEDS ORDERED: LIDOCAINE/PRILOCAINE CREAM 5 GM TUBE TOP ONE (09:06)
[2017-10-11] MEDS: ISOSORBIDE MONONITRATE 30 MG TABLET PO SCH (10:32)
[2017-10-11 11:25] LABS: Hepatitis A Ab IgM Quant 0.08 Index; Hepatitis A Ab IgM Result Negative (Negative)
[2017-10-11 11:26] LABS: Hepatitis B Core IgM Quant 0.18 Index; Hepatitis B Core IgM Result Negative (Negative); Hepatitis B Surface Ag Quant < 0.10 Index; Hepatitis B Surface Ag Result Negative (Negative); Hepatitis C Virus Ab Quant 0.09 Index; Hepatitis C Virus Ab Result Negative (Negative)
[2017-10-11 14:33] LABS: Basophils % 0.6 % (0.0-0.8); Eosinophils # 0.1 10*3/uL (0.0-0.87); Hematocrit 29.9 VOL% (42.0-52.0); Hemoglobin 9.6 GM/DL (14.0-18.0); Immature Granulocytes % 0.4 %; Immature Granulocytes Absolute 0.03 #; Lymphocytes % 13.7 % (21.2-54.2); Mean Corpuscular HGB Conc 32.1 GM/DL (32-36); Mean Corpuscular Hemoglobin 28 PG (27-34); Mean Corpuscular Volume 88.2 FL (87-102); Monocytes # 0.3 10*3/uL (0.11-0.8); Monocytes % 4.4 % (1.7-12.7); Neutrophils # 5.5 10*3/uL (1.4-7.4); Neutrophils % 78.9 % (38.7-73.9); Platelet Count 159 T/CUMM (130-400); Red Blood Count 3.39 MC/CUMM (3.8-5.5); Red Cell Distribution Width 13.9 % (9.3-17.3)
[2017-10-11 14:55] LABS: Albumin 2.9 G/DL (3.4-5.0); Bilirubin,Total 0.6 MG/DL (0.2-1.0); Calcium 8.3 MG/DL (8.5-10.1); Total Protein 6.5 G/DL (6.4-8.3)
[2017-10-11] MEDS: SUCROFERRIC OXYHYDROXIDE 1000 MG PO SCH (18:03)
[2017-10-11] MEDS: metroNIDAZOLE INJ 500 MG in PREMIX 1 EACH IV SCH ×2 (18:03→23:12)
[2017-10-11] MEDS: ATORVASTATIN 20 MG TABLET PO SCH (21:24)
[2017-10-11] MEDS: MONTELUKAST 10 MG TABLET PO SCH (21:24)
[2017-10-12] MEDS: INSULIN LISPRO 100 UNIT/ML SUBCUT SCH ×3 (05:12→17:46)
[2017-10-12] MEDS: ONDANSETRON 4 MG/2 ML VIAL IV PRN (05:17)
[2017-10-12] MEDS: MORPHINE 2 MG/1 ML SYRINGE IV PRN ×2 (05:18→18:49)
[2017-10-12] MEDS ORDERED: FAMOTIDINE 20 MG TABLET PO ONE (07:00)
[2017-10-12] MEDS ORDERED: DIAZEPAM 5 MG TABLET PO ONE (07:00)
[2017-10-12 07:32] LABS: Basophils # 0.1 10*3/uL (0.0-0.2); Basophils % 0.7 % (0.0-0.8); Eosinophils # 0.2 10*3/uL (0.0-0.87); Eosinophils % 2.3 % (0.00-10.9); Hematocrit 28.5 VOL% (42.0-52.0); Hemoglobin 8.6 GM/DL (14.0-18.0); Immature Granulocytes % 0.6 %; Immature Granulocytes Absolute 0.04 #; Lymphocytes # 1.2 10*3/uL (1.4-4.0); Lymphocytes % 17.8 % (21.2-54.2); Mean Corpuscular HGB Conc 30.2 GM/DL (32-36); Mean Corpuscular Hemoglobin 28 PG (27-34); Mean Corpuscular Volume 92.8 FL (87-102); Neutrophils # 4.5 10*3/uL (1.4-7.4); Neutrophils % 64.6 % (38.7-73.9); Platelet Count 165 T/CUMM (130-400); Red Blood Count 3.07 MC/CUMM (3.8-5.5); Red Cell Distribution Width 13.9 % (9.3-17.3); White Blood Count 6.9 T/CUMM (4-12)
[2017-10-12 08:09] LABS: Alanine Aminotransferase < 6 U/L (16-61); Albumin 2.8 G/DL (3.4-5.0); Alkaline Phosphatase 116 U/L (45-117); Aspartate Amino Transferase 11 U/L (0-37); Blood Urea Nitrogen 33 MG/DL (7-18); Calcium 8.5 MG/DL (8.5-10.1); Glucose 96 MG/DL (74-106); Osmolality,Calculated 279.8 MOS/KG (273-304); Potassium 4.8 MMOL/L (3.5-5.1); Sodium 137 MMOL/L (136-145)
[2017-10-12] MEDS: hydrALAZINE 10 MG TABLET PO SCH ×2 (08:47→21:39)
[2017-10-12] MEDS: levETIRAcetam 500 MG TABLET PO SCH ×2 (08:47→21:30)
[2017-10-12] MEDS: metroNIDAZOLE INJ 500 MG in PREMIX 1 EACH IV SCH ×3 (08:48→23:45)
[2017-10-12] MEDS: CARVEDILOL 25 MG TABLET PO SCH ×2 (08:48→21:31)
[2017-10-12] MEDS: METOCLOPRAMIDE 5 MG TABLET PO SCH ×4 (08:48→21:31)
[2017-10-12] MEDS: LEVOTHYROXINE 75 MCG TABLET PO SCH (08:49)
[2017-10-12] MEDS: PANTOPRAZOLE 40 MG TABLET PO SCH ×2 (08:49→21:30)
[2017-10-12] MEDS: ISOSORBIDE MONONITRATE 30 MG TABLET PO SCH (08:49)
[2017-10-12] MEDS: GABAPENTIN 300 MG CAPSULE PO SCH ×2 (08:49→21:31)
[2017-10-12] MEDS ORDERED: TISSUE ADHESIVE 1 EACH APPLICATOR TOP ONE (13:58)
[2017-10-12] MEDS ORDERED: LIDOCAINE 1%/EPI INJ 20 ML VIAL ONE (13:59)
[2017-10-12] MEDS ORDERED: SUGAMMADEX 200 MG/2 ML VIAL IV ONE (16:04)
[2017-10-12] MEDS ORDERED: SEVOFLURANE 1 UNIT/15 MINUTE INH ONE (16:19)
[2017-10-12] MEDS ORDERED: PROPOFOL 200 MG/20 ML VIAL IV ONE (16:19)
[2017-10-12] MEDS ORDERED: GLYCOPYRROLATE 0.4 MG/2 ML VIAL ONE (16:20)
[2017-10-12] MEDS ORDERED: fentaNYL 100 MCG/2 ML VIAL ONE (16:20)
[2017-10-12] MEDS ORDERED: ONDANSETRON 4 MG/2 ML VIAL ONE (16:20)
[2017-10-12] MEDS ORDERED: ACETAMINOPHEN 1,000 MG/100 ML VIAL IV ONE (16:20)
[2017-10-12] MEDS ORDERED: NEOSTIGMINE 10 MG/10 ML VIAL ONE (16:20)
[2017-10-12] MEDS ORDERED: ROCURONIUM 100 MG/10 ML VIAL IV ONE (16:20)
[2017-10-12] MEDS ORDERED: MIDAZOLAM 2 MG/2 ML VIAL ONE (16:20)
[2017-10-12] MEDS ORDERED: KETOROLAC 30 MG/1 ML VIAL ONE (16:20)
[2017-10-12] MEDS ORDERED: SODIUM CHLORIDE 0.9% 100 ML IV ONE (16:21)
[2017-10-12] MEDS ORDERED: HYDROmorphone 2 MG/1 ML VIAL IV PRN (17:45)
[2017-10-12] MEDS: ATORVASTATIN 20 MG TABLET PO SCH (21:31)
[2017-10-12] MEDS: MONTELUKAST 10 MG TABLET PO SCH (21:31)
[2017-10-12] MEDS ORDERED: LEVOFLOXACIN INJ 500 MG in PREMIX 1 EACH IV SCH (23:00)
[2017-10-13] MEDS: INSULIN LISPRO 100 UNIT/ML SUBCUT SCH ×4 (00:37→18:06)
[2017-10-13 05:29] LABS: Basophils # 0.1 10*3/uL (0.0-0.2); Basophils % 0.7 % (0.0-0.8); Eosinophils # 0.2 10*3/uL (0.0-0.87); Eosinophils % 2.4 % (0.00-10.9); Hematocrit 30.2 VOL% (42.0-52.0); Hemoglobin 9.3 GM/DL (14.0-18.0); Immature Granulocytes % 0.4 %; Immature Granulocytes Absolute 0.03 #; Lymphocytes # 1.2 10*3/uL (1.4-4.0); Lymphocytes % 17.5 % (21.2-54.2); Mean Corpuscular HGB Conc 30.8 GM/DL (32-36); Mean Corpuscular Hemoglobin 27 PG (27-34); Mean Corpuscular Volume 88.6 FL (87-102); Mean Platelet Volume 10.9 FL (9.6-12.0); Monocytes % 14.1 % (1.7-12.7); Neutrophils # 4.4 10*3/uL (1.4-7.4); Neutrophils % 64.9 % (38.7-73.9); Platelet Count 174 T/CUMM (130-400); Red Blood Count 3.41 MC/CUMM (3.8-5.5); Red Cell Distribution Width 13.7 % (9.3-17.3); White Blood Count 6.8 T/CUMM (4-12)
[2017-10-13] MEDS: MORPHINE 2 MG/1 ML SYRINGE IV PRN ×4 (05:41→14:41)
[2017-10-13 06:08] LABS: Albumin 2.7 G/DL (3.4-5.0); Bilirubin,Total 0.8 MG/DL (0.2-1.0); Calcium 8.3 MG/DL (8.5-10.1); Potassium 5.4 MMOL/L (3.5-5.1)
[2017-10-13] MEDS: LEVOTHYROXINE 75 MCG TABLET PO SCH (09:38)
[2017-10-13] MEDS: ISOSORBIDE MONONITRATE 30 MG TABLET PO SCH (09:38)
[2017-10-13] MEDS: METOCLOPRAMIDE 5 MG TABLET PO SCH ×3 (09:38→16:41)
[2017-10-13] MEDS: CARVEDILOL 25 MG TABLET PO SCH ×2 (09:38→20:33)
[2017-10-13] MEDS: PANTOPRAZOLE 40 MG TABLET PO SCH ×2 (09:38→20:33)
[2017-10-13] MEDS: hydrALAZINE 10 MG TABLET PO SCH ×2 (09:38→20:33)
[2017-10-13] MEDS: GABAPENTIN 300 MG CAPSULE PO SCH ×2 (09:39→20:33)
[2017-10-13] MEDS: levETIRAcetam 500 MG TABLET PO SCH ×2 (09:39→20:32)
[2017-10-13] MEDS: metroNIDAZOLE INJ 500 MG in PREMIX 1 EACH IV SCH (11:29)
[2017-10-13] MEDS ORDERED: LIDOCAINE/PRILOCAINE CREAM 5 GM TUBE TOP PRN (12:13)
[2017-10-13] MEDS: ATORVASTATIN 20 MG TABLET PO SCH (20:32)
[2017-10-13] MEDS: POLYETHYLENE GLYCOL POWDER 17 GM PACK PO SCH (20:32)
[2017-10-13] MEDS: oxyCODONE/ACETAMINOPHEN 5-325 MG TABLET PO PRN (20:33)
[2017-10-13] MEDS: MONTELUKAST 10 MG TABLET PO SCH (20:33)
[2017-10-14] MEDS: INSULIN LISPRO 100 UNIT/ML SUBCUT SCH ×2 (00:20→06:06)
[2017-10-14] MEDS: METOCLOPRAMIDE 10 MG/2 ML VIAL IV SCH ×2 (01:26→05:45)
[2017-10-14] MEDS: oxyCODONE/ACETAMINOPHEN 5-325 MG TABLET PO PRN ×2 (03:48→10:32)
[2017-10-14 05:46] LABS: Basophils # 0.1 10*3/uL (0.0-0.2); Basophils % 0.8 % (0.0-0.8); Eosinophils # 0.2 10*3/uL (0.0-0.87); Eosinophils % 3.5 % (0.00-10.9); Hematocrit 28.7 VOL% (42.0-52.0); Immature Granulocytes % 0.3 %; Immature Granulocytes Absolute 0.02 #; Lymphocytes # 1.3 10*3/uL (1.4-4.0); Lymphocytes % 19.4 % (21.2-54.2); Mean Corpuscular HGB Conc 31.4 GM/DL (32-36); Mean Corpuscular Hemoglobin 28 PG (27-34); Mean Platelet Volume 10.9 FL (9.6-12.0); Monocytes # 0.9 10*3/uL (0.11-0.8); Monocytes % 14.5 % (1.7-12.7); Neutrophils % 61.5 % (38.7-73.9); Platelet Count 161 T/CUMM (130-400); Red Blood Count 3.26 MC/CUMM (3.8-5.5); Red Cell Distribution Width 13.7 % (9.3-17.3); White Blood Count 6.5 T/CUMM (4-12)
[2017-10-14 06:18] LABS: Calcium 8.5 MG/DL (8.5-10.1); Potassium 4.5 MMOL/L (3.5-5.1)
[2017-10-14] MEDS ORDERED: METOCLOPRAMIDE 10 MG TABLET PO SCH (07:30)
[2017-10-14 08:07] VITALS: BP 133/75
[2017-10-14] MEDS: LEVOTHYROXINE 75 MCG TABLET PO SCH (09:28)
[2017-10-14] MEDS: levETIRAcetam 500 MG TABLET PO SCH (09:28)
[2017-10-14] MEDS: POLYETHYLENE GLYCOL POWDER 17 GM PACK PO SCH (09:28)
[2017-10-14] MEDS: ISOSORBIDE MONONITRATE 30 MG TABLET PO SCH (09:28)
[2017-10-14] MEDS: GABAPENTIN 300 MG CAPSULE PO SCH (09:28)
[2017-10-14] MEDS: hydrALAZINE 10 MG TABLET PO SCH (09:28)
[2017-10-14] MEDS: CARVEDILOL 25 MG TABLET PO SCH (09:28)
[2017-10-14] MEDS: PANTOPRAZOLE 40 MG TABLET PO SCH (09:28)
== END 2017-10-14 11:30 | disposition home or self-care (01) | DRG 417 ==
LOC: N.ED 17:10 → N.EDINP 23:08 → N.3E 10-11 15:02
PROC: LAPCHOL (2017-10-12 14:29)

== ENCOUNTER 2017-10-16 21:11 | Inpatient (IN) ==
[2017-10-16] MEDS ORDERED: SODIUM CHLORIDE 0.9% 500 ML IV STA (22:32)
[2017-10-16] MEDS ORDERED: cefTRIAXone 1,000 MG in SODIUM CHLORIDE 0.9% 100 ML IV STA (22:32)
[2017-10-16] MEDS ORDERED: HYDROmorphone 2 MG/1 ML VIAL IV STA (22:32)
[2017-10-16] MEDS ORDERED: PANTOPRAZOLE 40 MG VIAL IV STA (22:32)
[2017-10-16] MEDS ORDERED: ONDANSETRON 4 MG/2 ML VIAL IV STA (22:32)
[2017-10-16] MEDS ORDERED: ONDANSETRON 4 MG/2 ML VIAL ONE (22:53)
[2017-10-16] MEDS ORDERED: cefTRIAXone 1,000 MG VIAL ONE (22:53)
[2017-10-16] MEDS ORDERED: PANTOPRAZOLE 40 MG VIAL IV ONE (22:53)
[2017-10-16] MEDS ORDERED: HYDROmorphone 2 MG/1 ML VIAL ONE (22:53)
[2017-10-16 23:39] LABS: Basophils # 0.1 10*3/uL (0.0-0.2); Basophils % 0.6 % (0.0-0.8); Eosinophils # 0.1 10*3/uL (0.0-0.87); Eosinophils % 0.9 % (0.00-10.9); Hematocrit 30.7 VOL% (42.0-52.0); Hemoglobin 9.6 GM/DL (14.0-18.0); Immature Granulocytes % 0.8 %; Immature Granulocytes Absolute 0.08 #; Lymphocytes # 1.4 10*3/uL (1.4-4.0); Lymphocytes % 13.2 % (21.2-54.2); Mean Corpuscular HGB Conc 31.3 GM/DL (32-36); Mean Corpuscular Hemoglobin 28 PG (27-34); Mean Corpuscular Volume 88.7 FL (87-102); Mean Platelet Volume 10.9 FL (9.6-12.0); Monocytes % 9.2 % (1.7-12.7); Neutrophils # 7.9 10*3/uL (1.4-7.4); Neutrophils % 75.3 % (38.7-73.9); Platelet Count 168 T/CUMM (130-400); Red Blood Count 3.46 MC/CUMM (3.8-5.5); Red Cell Distribution Width 14.1 % (9.3-17.3); White Blood Count 10.4 T/CUMM (4-12)
[2017-10-17] LABS: Lactic Acid 1.2 MMOL/L (0.4-2.0)
[2017-10-17 00:03] LABS: Albumin 2.9 G/DL (3.4-5.0); Bilirubin,Total 0.7 MG/DL (0.2-1.0); Calcium 8.4 MG/DL (8.5-10.1); Magnesium 2.2 MG/DL (1.8-2.4); Osmolality,Calculated 277.1 MOS/KG (273-304); Potassium 4.8 MMOL/L (3.5-5.1); Total Protein 6.2 G/DL (6.4-8.3)
[2017-10-17 00:04] LABS: Troponin I Only 0.054 NG/ML (0.00-0.045)
[2017-10-17] MEDS ORDERED: PIPERACILLIN/TAZOBACTAM 2,250 MG in SODIUM CHLORIDE 0.9% 100 ML IV STA (01:32)
[2017-10-17] MEDS ORDERED: PIPERACILLIN/TAZOBACTAM 3,375 MG in SODIUM CHLORIDE 0.9% 100 ML IV ONE (02:30)
[2017-10-17] MEDS ORDERED: PIPERACILLIN/TAZOBACTAM 3,375 MG VIAL IV ONE (02:48)
[2017-10-17] MEDS ORDERED: SODIUM CHLORIDE 0.9% 100 ML IV ONE (02:49)
[2017-10-17] MEDS ORDERED: DEXTROSE 50% 25 GM/50 ML VIAL IV PRN (03:36)
[2017-10-17] MEDS ORDERED: GLUCAGON 1 MG VIAL IM PRN (03:36)
[2017-10-17] MEDS ORDERED: ACETAMINOPHEN 325 MG TABLET PO PRN (03:36)
[2017-10-17] MEDS ORDERED: ALBUTEROL/IPRATROPIUM 3 ML NEB RESP TX PRN (04:00)
[2017-10-17] MEDS: oxyCODONE/ACETAMINOPHEN 5-325 MG TABLET PO PRN ×3 (05:20→16:32)
[2017-10-17 05:36] LABS: Basophils # 0.1 10*3/uL (0.0-0.2); Basophils % 0.9 % (0.0-0.8); Eosinophils # 0.1 10*3/uL (0.0-0.87); Eosinophils % 1.1 % (0.00-10.9); Hematocrit 30.5 VOL% (42.0-52.0); Hemoglobin 9.4 GM/DL (14.0-18.0); Immature Granulocytes % 0.6 %; Immature Granulocytes Absolute 0.07 #; Lymphocytes # 1.9 10*3/uL (1.4-4.0); Lymphocytes % 17.6 % (21.2-54.2); Mean Corpuscular HGB Conc 30.8 GM/DL (32-36); Mean Corpuscular Hemoglobin 28 PG (27-34); Mean Corpuscular Volume 89.4 FL (87-102); Mean Platelet Volume 10.9 FL (9.6-12.0); Monocytes # 1.1 10*3/uL (0.11-0.8); Neutrophils # 7.5 10*3/uL (1.4-7.4); Neutrophils % 69.8 % (38.7-73.9); Platelet Count 172 T/CUMM (130-400); Red Blood Count 3.41 MC/CUMM (3.8-5.5); Red Cell Distribution Width 14.2 % (9.3-17.3); White Blood Count 10.8 T/CUMM (4-12)
[2017-10-17 06:06] LABS: Albumin 2.8 G/DL (3.4-5.0); Bilirubin,Total 0.8 MG/DL (0.2-1.0); Calcium 8.9 MG/DL (8.5-10.1); Osmolality,Calculated 279.8 MOS/KG (273-304); Potassium 5.1 MMOL/L (3.5-5.1); Total Protein 6.5 G/DL (6.4-8.3)
[2017-10-17] MEDS ORDERED: VANCOMYCIN INJ 1,000 MG in SODIUM CHLORIDE 0.9% 250 ML IV ONE (08:00)
[2017-10-17] MEDS: INSULIN LISPRO 100 UNIT/ML SUBCUT SCH ×4 (08:20→21:33)
[2017-10-17] MEDS: ONDANSETRON 4 MG/2 ML VIAL IV PRN ×2 (08:26→23:30)
[2017-10-17] MEDS ORDERED: PANTOPRAZOLE 40 MG TABLET PO SCH (09:00)
[2017-10-17] MEDS: METOCLOPRAMIDE 5 MG TABLET PO SCH ×3 (11:01→21:26)
[2017-10-17] MEDS: CARVEDILOL 25 MG TABLET PO SCH ×2 (11:01→21:27)
[2017-10-17] MEDS ORDERED: SUCROFERRIC OXYHYDROXIDE 1000 MG PO SCH (11:30)
[2017-10-17 13:21] LABS: Apearance,Urine Slightly Hazy (Clear); Bacteria,Urine Occasional /HPF (Few); Bilirubin,Urine Negative (Negative); Blood, Urine Small mg/dL (Negative); Glucose,Urine (UA) 150 mg/dL (Negative); Ketones,Urine Negative (Negative); Nitrite,Urine Negative (Negative); Protein,Urine >=500 MG/DL; RBC,Urine 20 /HPF (0-4); Squamous Epithelial Cell,Urine Occasional /HPF (0-10); Urine Color Yellow (Yellow); Urine Specific Gravity 1.018 (1.001-1.035); Urine Urobilinogen < 2.0 EU/DL (0.2-1.0); WBC,Urine 25 /HPF (0-6)
[2017-10-17] MEDS ORDERED: MONTELUKAST 10 MG TABLET PO SCH (21:00)
[2017-10-17] MEDS ORDERED: ASPIRIN EC 81 MG TABLET PO SCH (21:00)
[2017-10-17] MEDS ORDERED: ATORVASTATIN 20 MG TABLET PO SCH (21:00)
[2017-10-17] MEDS: levETIRAcetam 500 MG TABLET PO SCH (21:25)
[2017-10-17] MEDS: GABAPENTIN 300 MG CAPSULE PO SCH (21:26)
[2017-10-17] MEDS: PANTOPRAZOLE 40 MG TABLET PO SCH (21:26)
[2017-10-17] MEDS: hydrALAZINE 10 MG TABLET PO SCH (21:26)
[2017-10-17] MEDS ORDERED: cefTRIAXone 1,000 MG in SYRINGE 1 EACH IV SCH (22:00)
[2017-10-17] MEDS ORDERED: POLYETHYLENE GLYCOL POWDER 17 GM PACK PO PRN (22:21)
[2017-10-18] MEDS ORDERED: LEVOTHYROXINE 75 MCG TABLET PO SCH (07:00)
[2017-10-18] MEDS ORDERED: LIDOCAINE/PRILOCAINE CREAM 5 GM TUBE TOP ONE (08:01)
[2017-10-18] MEDS ORDERED: Dexlansoprazole [Dexilant] 60 MG PO SCH (09:00)
[2017-10-18] MEDS ORDERED: predniSONE 10 MG TABLET PO SCH (09:00)
[2017-10-18] MEDS ORDERED: ISOSORBIDE MONONITRATE 30 MG TABLET PO SCH (09:00)
[2017-10-18] MEDS ORDERED: LACTULOSE 20 GM/30 ML UDCUP PO PRN (10:35)
[2017-10-18 14:08] VITALS: BP 196/90
[2017-10-18] MEDS: INSULIN LISPRO 100 UNIT/ML SUBCUT SCH (15:02)
[2017-10-18] MEDS: METOCLOPRAMIDE 5 MG TABLET PO SCH (15:02)
[2017-10-18] MEDS: PANTOPRAZOLE 40 MG TABLET PO SCH (15:03)
[2017-10-18] MEDS: hydrALAZINE 10 MG TABLET PO SCH (15:03)
[2017-10-18] MEDS: CARVEDILOL 25 MG TABLET PO SCH (15:03)
[2017-10-18] MEDS: GABAPENTIN 300 MG CAPSULE PO SCH (15:03)
[2017-10-18] MEDS: levETIRAcetam 500 MG TABLET PO SCH (15:03)
== END 2017-10-18 14:56 | disposition home or self-care (01) | DRG 864 ==
LOC: N.ED 21:11 → SUATTDRO 10-17 03:14 → N.EDINP 10-17 03:14 → N.TELEN 10-17 03:51
PROVIDERS: ADMIT Hospitalist; ATTEND Internal Medicine Geriatric Medicine

== ENCOUNTER 2018-03-26 20:28 | Inpatient (IN) ==
[2018-03-26] MEDS ORDERED: NITROGLYCERIN 2% OINT 1 INCH/GM PACK TOP STA (21:10)
[2018-03-26 21:27] LABS: Albumin 3.4 G/DL (3.4-5.0); Bilirubin,Total 0.9 MG/DL (0.2-1.0); Calcium 9.7 MG/DL (8.5-10.1); Osmolality,Calculated 281.8 MOS/KG (273-304); Total Protein 7.5 G/DL (6.4-8.3)
[2018-03-26 21:28] LABS: Troponin I Only 0.061 NG/ML (0.00-0.045)
[2018-03-26 21:36] LABS: ABG Base Excess 4.3 MMOL/L (-2.5-2.5); ABG HCO3 28.2 MMOL/L (20-26); ABG Oxygen Saturation 95.9 % (95-100); ABG PCO2 44.5 MM HG (35-48); ABG PH 7.425 (7.35-7.45); ABG TCO2 26.4 MMOL/L (23-27)
[2018-03-26] MEDS ORDERED: hydrALAZINE 20 MG/1 ML VIAL ONE (22:07)
[2018-03-26 22:14] LABS: Basophils # 0.1 10*3/uL (0.0-0.2); Basophils % 0.8 % (0.0-0.8); Eosinophils # 0.2 10*3/uL (0.0-0.87); Eosinophils % 3.2 % (0.00-10.9); Hematocrit 32.7 VOL% (42.0-52.0); Hemoglobin 10.7 GM/DL (14.0-18.0); Immature Granulocytes % 0.6 %; Immature Granulocytes Absolute 0.04 #; Lymphocytes # 1.2 10*3/uL (1.4-4.0); Lymphocytes % 18.2 % (21.2-54.2); Mean Corpuscular HGB Conc 32.7 GM/DL (32-36); Mean Corpuscular Hemoglobin 29 PG (27-34); Mean Corpuscular Volume 88.6 FL (87-102); Mean Platelet Volume 11.5 FL (9.6-12.0); Monocytes # 0.7 10*3/uL (0.11-0.8); Monocytes % 10.7 % (1.7-12.7); Neutrophils # 4.4 10*3/uL (1.4-7.4); Neutrophils % 66.5 % (38.7-73.9); Platelet Count 107 T/CUMM (130-400); Red Blood Count 3.69 MC/CUMM (3.8-5.5); Red Cell Distribution Width 13.4 % (9.3-17.3); White Blood Count 6.6 T/CUMM (4-12)
[2018-03-27] MEDS ORDERED: oxyCODONE/ACETAMINOPHEN 5-325 MG TABLET PO STA (01:21)
[2018-03-27] MEDS ORDERED: ACETAMINOPHEN 325 MG TABLET PO PRN (02:30)
[2018-03-27] MEDS ORDERED: GLUCAGON 1 MG VIAL IM PRN (02:37)
[2018-03-27] MEDS ORDERED: DEXTROSE 50% 25 GM/50 ML VIAL IV PRN (02:37)
[2018-03-27] MEDS ORDERED: METOPROLOL TARTRATE 5 MG/5 ML VIAL IV ONE (08:42)
[2018-03-27] MEDS: PREGABALIN 75 MG CAPSULE PO SCH ×3 (08:59→21:26)
[2018-03-27] MEDS ORDERED: hydrALAZINE 10 MG TABLET PO SCH (09:00)
[2018-03-27] MEDS ORDERED: ISOSORBIDE MONONITRATE 30 MG TABLET PO SCH (09:00)
[2018-03-27] MEDS: LEVOTHYROXINE 75 MCG TABLET PO SCH (09:00)
[2018-03-27] MEDS: CARVEDILOL 25 MG TABLET PO SCH ×2 (09:00→16:45)
[2018-03-27] MEDS: PANTOPRAZOLE 40 MG TABLET PO SCH ×2 (09:00→18:32)
[2018-03-27] MEDS: ENOXAPARIN 30 MG/0.3 ML SYRINGE SUBCUT SCH (09:01)
[2018-03-27] MEDS: METOCLOPRAMIDE 10 MG TABLET PO SCH ×4 (09:01→21:26)
[2018-03-27] MEDS: INSULIN LISPRO 100 UNIT/ML SUBCUT SCH ×4 (09:01→21:27)
[2018-03-27] MEDS: ONDANSETRON 4 MG/2 ML VIAL IV PRN (09:41)
[2018-03-27] MEDS ORDERED: hydrALAZINE 25 MG TABLET PO SCH (09:41)
[2018-03-27] MEDS ORDERED: LABETALOL 20 MG/4 ML SYRINGE IV PRN (10:11)
[2018-03-27] MEDS: levETIRAcetam 500 MG TABLET PO SCH ×2 (12:00→21:26)
[2018-03-27] MEDS ORDERED: ASPIRIN CHEW 81 MG TABLET PO ONE (15:55)
[2018-03-27] MEDS: oxyCODONE/ACETAMINOPHEN 5-325 MG TABLET PO PRN (16:42)
[2018-03-27] MEDS: ISOSORBIDE DINITRATE 20 MG TABLET PO SCH ×2 (16:45→21:26)
[2018-03-27 16:48] LABS: Troponin I Only 0.064 NG/ML (0.00-0.045)
[2018-03-27] MEDS ORDERED: MELATONIN 3 MG TABLET PO PRN (20:56)
[2018-03-27] MEDS ORDERED: LIDOCAINE/PRILOCAINE CREAM 5 GM TUBE TOP PRN (20:59)
[2018-03-27] MEDS ORDERED: rOPINIRole 0.25 MG TABLET PO SCH (21:00)
[2018-03-27] MEDS ORDERED: DOXEPIN 3 MG PO SCH (21:00)
[2018-03-27] MEDS ORDERED: ASPIRIN EC 81 MG TABLET PO SCH (21:00)
[2018-03-27] MEDS ORDERED: ATORVASTATIN 20 MG TABLET PO SCH (21:00)
[2018-03-27 22:41] LABS: CKMB % 5.6 %
[2018-03-27 22:43] LABS: Troponin I Only 0.051 NG/ML (0.00-0.045)
[2018-03-28] MEDS: oxyCODONE/ACETAMINOPHEN 5-325 MG TABLET PO PRN (03:49)
[2018-03-28 04:36] LABS: Basophils # 0.1 10*3/uL (0.0-0.2); Eosinophils # 0.2 10*3/uL (0.0-0.87); Eosinophils % 3.5 % (0.00-10.9); Hematocrit 31.9 VOL% (42.0-52.0); Hemoglobin 10.4 GM/DL (14.0-18.0); Immature Granulocytes % 0.3 %; Immature Granulocytes Absolute 0.02 #; Lymphocytes # 1.4 10*3/uL (1.4-4.0); Lymphocytes % 23.5 % (21.2-54.2); Mean Corpuscular HGB Conc 32.6 GM/DL (32-36); Mean Corpuscular Hemoglobin 30 PG (27-34); Mean Corpuscular Volume 90.4 FL (87-102); Mean Platelet Volume 11.5 FL (9.6-12.0); Monocytes # 0.8 10*3/uL (0.11-0.8); Monocytes % 12.3 % (1.7-12.7); Neutrophils # 3.6 10*3/uL (1.4-7.4); Neutrophils % 59.4 % (38.7-73.9); Platelet Count 102 T/CUMM (130-400); Red Blood Count 3.53 MC/CUMM (3.8-5.5); Red Cell Distribution Width 13.5 % (9.3-17.3); White Blood Count 6.1 T/CUMM (4-12)
[2018-03-28] MEDS: ONDANSETRON 4 MG/2 ML VIAL IV PRN (05:00)
[2018-03-28 05:14] LABS: CKMB % 5.8 %
[2018-03-28 05:15] LABS: Troponin I Only 0.059 NG/ML (0.00-0.045)
[2018-03-28 05:18] LABS: Calcium 10.2 MG/DL (8.5-10.1); Ferritin 898.9 ng/ml (26-388); Osmolality,Calculated 280.1 MOS/KG (273-304); Potassium 4.3 MMOL/L (3.5-5.1)
[2018-03-28 05:23] LABS: Vitamin B12 570 PG/ML (211-911)
[2018-03-28] MEDS: PANTOPRAZOLE 40 MG TABLET PO SCH (06:47)
[2018-03-28] MEDS: LEVOTHYROXINE 75 MCG TABLET PO SCH (06:47)
[2018-03-28 08:05] LABS: Sedimentation Rate-Westergren 83 MM/HR (0-15)
[2018-03-28] MEDS: INSULIN LISPRO 100 UNIT/ML SUBCUT SCH ×3 (08:09→15:36)
[2018-03-28] MEDS: METOCLOPRAMIDE 10 MG TABLET PO SCH ×3 (08:21→17:34)
[2018-03-28] MEDS: PREGABALIN 75 MG CAPSULE PO SCH ×2 (08:21→15:36)
[2018-03-28] MEDS: ISOSORBIDE DINITRATE 20 MG TABLET PO SCH ×2 (08:21→15:35)
[2018-03-28] MEDS: ENOXAPARIN 30 MG/0.3 ML SYRINGE SUBCUT SCH (08:22)
[2018-03-28] MEDS: CARVEDILOL 25 MG TABLET PO SCH ×2 (08:22→17:34)
[2018-03-28] MEDS: levETIRAcetam 500 MG TABLET PO SCH (08:22)
[2018-03-28] MEDS ORDERED: ASPIRIN CHEW 81 MG TABLET PO SCH (09:00)
[2018-03-28] MEDS ORDERED: amLODIPine 5 MG TABLET PO SCH (09:00)
[2018-03-28 12:04] LABS: Hemoglobin A1 (Alkaline) 98.2 % (96.5-98.5); Hemoglobin A2 (Alkaline) 1.8 % (1.5-3.5)
[2018-03-28 16:42] VITALS: BP 154/75
== END 2018-03-28 17:45 | disposition home or self-care (01) | DRG 291 ==
LOC: N.ED 20:28 → N.EDINP 03-27 01:21 → N.TELEN 03-27 01:42
PROVIDERS: ADMIT Hospitalist; ATTEND Hospitalist

== ENCOUNTER 2018-05-30 18:23 | Inpatient (IN) ==
[2018-05-30] MEDS ORDERED: ALUM/MAG/SIMETH/LIDO VISC 1:1 30 ML BOTTLE PO STA (18:34)
[2018-05-30] MEDS ORDERED: ASPIRIN 325 MG TABLET PO STA (18:34)
[2018-05-30] MEDS ORDERED: ONDANSETRON 4 MG/2 ML VIAL IV STA (18:34)
[2018-05-30 19:09] LABS: Basophils # 0.1 10*3/uL (0.0-0.2); Eosinophils # 0.1 10*3/uL (0.0-0.87); Eosinophils % 1.9 % (0.00-10.9); Hematocrit 33.8 VOL% (42.0-52.0); Hemoglobin 11.2 GM/DL (14.0-18.0); Immature Granulocytes % 0.6 %; Immature Granulocytes Absolute 0.04 #; Lymphocytes # 1.3 10*3/uL (1.4-4.0); Lymphocytes % 21.2 % (21.2-54.2); Mean Corpuscular HGB Conc 33.1 GM/DL (32-36); Mean Corpuscular Hemoglobin 29 PG (27-34); Mean Platelet Volume 11.5 FL (9.6-12.0); Monocytes # 0.8 10*3/uL (0.11-0.8); Monocytes % 12.7 % (1.7-12.7); Neutrophils % 62.6 % (38.7-73.9); Platelet Count 164 T/CUMM (130-400); Red Blood Count 3.84 MC/CUMM (3.8-5.5); Red Cell Distribution Width 13.6 % (9.3-17.3); White Blood Count 6.3 T/CUMM (4-12)
[2018-05-30 19:25] LABS: INR 1.1; PT Patient Result 11.5 SECS
[2018-05-30] MEDS ORDERED: MORPHINE 4 MG/1 ML VIAL IV STA (20:36)
[2018-05-30 23:00] LABS: Albumin 2.7 G/DL (3.4-5.0); Bilirubin,Total 0.6 MG/DL (0.2-1.0); Calcium 8.5 MG/DL (8.5-10.1); Osmolality,Calculated 277.8 MOS/KG (273-304); Potassium 3.4 MMOL/L (3.5-5.1); Total Protein 6.8 G/DL (6.4-8.3)
[2018-05-31] MEDS ORDERED: MORPHINE 4 MG/1 ML VIAL IV PRN (00:52)
[2018-05-31] MEDS ORDERED: ONDANSETRON 4 MG/2 ML VIAL IV PRN ×2 (00:52→09:22)
[2018-05-31] MEDS ORDERED: DEXTROSE 50% 25 GM/50 ML VIAL IV PRN (01:06)
[2018-05-31] MEDS ORDERED: GLUCAGON 1 MG VIAL IM PRN (01:06)
[2018-05-31] MEDS: HEPARIN 5,000 UNIT/1 ML VIAL SUBCUT SCH ×3 (02:57→18:07)
[2018-05-31 05:30] LABS: Basophils # 0.1 10*3/uL (0.0-0.2); Basophils % 0.7 % (0.0-0.8); Eosinophils # 0.2 10*3/uL (0.0-0.87); Hematocrit 33.3 VOL% (42.0-52.0); Hemoglobin 10.9 GM/DL (14.0-18.0); Immature Granulocytes % 0.7 %; Immature Granulocytes Absolute 0.06 #; Lymphocytes # 0.7 10*3/uL (1.4-4.0); Lymphocytes % 7.8 % (21.2-54.2); Mean Corpuscular HGB Conc 32.7 GM/DL (32-36); Mean Corpuscular Hemoglobin 30 PG (27-34); Mean Corpuscular Volume 90.2 FL (87-102); Monocytes # 0.7 10*3/uL (0.11-0.8); Monocytes % 8.2 % (1.7-12.7); Neutrophils % 80.6 % (38.7-73.9); Platelet Count 127 T/CUMM (130-400); Red Blood Count 3.69 MC/CUMM (3.8-5.5); Red Cell Distribution Width 13.6 % (9.3-17.3); White Blood Count 8.7 T/CUMM (4-12)
[2018-05-31 05:42] LABS: Calcium 8.9 MG/DL (8.5-10.1); Osmolality,Calculated 277.7 MOS/KG (273-304); Potassium 3.5 MMOL/L (3.5-5.1)
[2018-05-31] MEDS: LEVOTHYROXINE 75 MCG TABLET PO SCH (06:14)
[2018-05-31] MEDS: INSULIN REGULAR 100 UNIT/ML SUBCUT SCH ×4 (08:17→20:14)
[2018-05-31] MEDS ORDERED: PROMETHAZINE INJ 25 MG in SODIUM CHLORIDE 0.9% 50 ML IV PRN (08:36)
[2018-05-31] MEDS ORDERED: PANTOPRAZOLE 40 MG TABLET PO SCH ×2 (09:00)
[2018-05-31] MEDS ORDERED: amLODIPine 5 MG TABLET PO SCH ×2 (09:00→10:30)
[2018-05-31] MEDS: ISOSORBIDE DINITRATE 20 MG TABLET PO SCH ×3 (11:00→20:15)
[2018-05-31] MEDS: GABAPENTIN 300 MG CAPSULE PO SCH ×4 (11:00→20:15)
[2018-05-31] MEDS: levETIRAcetam 500 MG TABLET PO SCH ×2 (11:01→20:15)
[2018-05-31] MEDS: ASPIRIN CHEW 81 MG TABLET PO SCH (11:01)
[2018-05-31] MEDS: ACETAMINOPHEN 325 MG TABLET PO PRN ×3 (11:40→20:15)
[2018-05-31] MEDS: CARVEDILOL 25 MG TABLET PO SCH ×2 (12:54→18:08)
[2018-05-31] MEDS: OLMESARTAN 20 MG TABLET PO SCH (13:16)
[2018-05-31] MEDS: cefTRIAXone 1,000 MG in SYRINGE 1 EACH IV SCH (13:16)
[2018-05-31] MEDS: PANTOPRAZOLE 40 MG VIAL IV SCH (20:13)
[2018-05-31] MEDS: rOPINIRole 0.25 MG TABLET PO SCH (20:15)
[2018-05-31] MEDS: ROSUVASTATIN 10 MG TABLET PO SCH (20:15)
[2018-05-31] MEDS: ZALEPLON 5 MG CAPSULE PO SCH (20:16)
[2018-06-01] MEDS: HEPARIN 5,000 UNIT/1 ML VIAL SUBCUT SCH ×3 (02:20→20:49)
[2018-06-01] MEDS: LEVOTHYROXINE 75 MCG TABLET PO SCH (05:34)
[2018-06-01 08:27] LABS: Basophils % 0.5 % (0.0-0.8); Eosinophils # 0.1 10*3/uL (0.0-0.87); Eosinophils % 1.1 % (0.00-10.9); Hematocrit 31.5 VOL% (42.0-52.0); Hemoglobin 9.8 GM/DL (14.0-18.0); Immature Granulocytes % 0.6 %; Immature Granulocytes Absolute 0.05 #; Lymphocytes # 0.9 10*3/uL (1.4-4.0); Lymphocytes % 10.4 % (21.2-54.2); Mean Corpuscular HGB Conc 31.1 GM/DL (32-36); Mean Corpuscular Hemoglobin 29 PG (27-34); Mean Corpuscular Volume 93.8 FL (87-102); Mean Platelet Volume 10.7 FL (9.6-12.0); Monocytes % 11.5 % (1.7-12.7); Neutrophils # 6.4 10*3/uL (1.4-7.4); Neutrophils % 75.9 % (38.7-73.9); Platelet Count 116 T/CUMM (130-400); Red Blood Count 3.36 MC/CUMM (3.8-5.5); Red Cell Distribution Width 13.9 % (9.3-17.3); White Blood Count 8.4 T/CUMM (4-12)
[2018-06-01] MEDS: INSULIN REGULAR 100 UNIT/ML SUBCUT SCH ×4 (08:37→20:50)
[2018-06-01 08:54] LABS: Calcium 8.5 MG/DL (8.5-10.1); Potassium 4.4 MMOL/L (3.5-5.1)
[2018-06-01] MEDS: GABAPENTIN 300 MG CAPSULE PO SCH ×4 (09:00→20:47)
[2018-06-01] MEDS: ISOSORBIDE DINITRATE 20 MG TABLET PO SCH ×3 (13:09→20:47)
[2018-06-01] MEDS: CARVEDILOL 25 MG TABLET PO SCH ×2 (13:09→18:36)
[2018-06-01] MEDS: OLMESARTAN 20 MG TABLET PO SCH (13:09)
[2018-06-01] MEDS: ASPIRIN CHEW 81 MG TABLET PO SCH (13:09)
[2018-06-01] MEDS: cefTRIAXone 1,000 MG in SYRINGE 1 EACH IV SCH (13:10)
[2018-06-01] MEDS: PANTOPRAZOLE 40 MG VIAL IV SCH ×2 (13:10→20:50)
[2018-06-01] MEDS: levETIRAcetam 500 MG TABLET PO SCH ×2 (13:23→20:47)
[2018-06-01] MEDS: LIDOCAINE/PRILOCAINE CREAM 5 GM TUBE TOP SCH (15:17)
[2018-06-01] MEDS: ROSUVASTATIN 10 MG TABLET PO SCH (20:47)
[2018-06-01] MEDS: rOPINIRole 0.25 MG TABLET PO SCH (20:48)
[2018-06-01] MEDS: ZALEPLON 5 MG CAPSULE PO SCH (20:48)
[2018-06-01] MEDS: METOCLOPRAMIDE 10 MG/2 ML VIAL IV SCH (23:42)
[2018-06-02 04:16] LABS: Basophils % 0.6 % (0.0-0.8); Eosinophils # 0.1 10*3/uL (0.0-0.87); Eosinophils % 2.2 % (0.00-10.9); Hemoglobin 9.3 GM/DL (14.0-18.0); Immature Granulocytes % 0.3 %; Immature Granulocytes Absolute 0.02 #; Lymphocytes # 0.9 10*3/uL (1.4-4.0); Lymphocytes % 14.1 % (21.2-54.2); Mean Corpuscular Hemoglobin 28 PG (27-34); Mean Corpuscular Volume 94.2 FL (87-102); Mean Platelet Volume 11.1 FL (9.6-12.0); Monocytes # 0.9 10*3/uL (0.11-0.8); Neutrophils # 4.4 10*3/uL (1.4-7.4); Neutrophils % 68.8 % (38.7-73.9); Platelet Count 132 T/CUMM (130-400); Red Blood Count 3.29 MC/CUMM (3.8-5.5); Red Cell Distribution Width 13.8 % (9.3-17.3); White Blood Count 6.4 T/CUMM (4-12)
[2018-06-02 04:39] LABS: Albumin 2.8 G/DL (3.4-5.0); Calcium 8.7 MG/DL (8.5-10.1); Osmolality,Calculated 276.8 MOS/KG (273-304); Potassium 3.8 MMOL/L (3.5-5.1)
[2018-06-02 04:40] LABS: Calcium 8.7 MG/DL (8.5-10.1); Potassium 3.7 MMOL/L (3.5-5.1)
[2018-06-02] MEDS: HEPARIN 5,000 UNIT/1 ML VIAL SUBCUT SCH ×3 (05:02→21:48)
[2018-06-02] MEDS: METOCLOPRAMIDE 10 MG/2 ML VIAL IV SCH ×4 (05:02→21:48)
[2018-06-02] MEDS: LEVOTHYROXINE 75 MCG TABLET PO SCH (05:31)
[2018-06-02] MEDS: ISOSORBIDE DINITRATE 20 MG TABLET PO SCH ×3 (09:04→21:44)
[2018-06-02] MEDS: levETIRAcetam 500 MG TABLET PO SCH ×2 (09:04→21:44)
[2018-06-02] MEDS: OLMESARTAN 20 MG TABLET PO SCH (09:04)
[2018-06-02] MEDS: CARVEDILOL 25 MG TABLET PO SCH ×2 (09:04→16:34)
[2018-06-02] MEDS: ASPIRIN CHEW 81 MG TABLET PO SCH (09:04)
[2018-06-02] MEDS: ERYTHROMYCIN BASE 250 MG TABLET PO SCH ×4 (09:04→21:44)
[2018-06-02] MEDS: GABAPENTIN 300 MG CAPSULE PO SCH ×4 (09:04→21:43)
[2018-06-02] MEDS: LIDOCAINE/PRILOCAINE CREAM 5 GM TUBE TOP SCH (09:06)
[2018-06-02] MEDS: PANTOPRAZOLE 40 MG VIAL IV SCH ×2 (09:06→21:45)
[2018-06-02] MEDS: INSULIN REGULAR 100 UNIT/ML SUBCUT SCH ×4 (09:07→22:39)
[2018-06-02] MEDS: oxyCODONE/ACETAMINOPHEN 5-325 MG TABLET PO PRN ×2 (09:42→21:44)
[2018-06-02] MEDS: cefTRIAXone 1,000 MG in SYRINGE 1 EACH IV SCH (12:54)
[2018-06-02] MEDS ORDERED: SODIUM PHOSPHATE ENEMA 133 ML BOTTLE RECTAL ONE (18:05)
[2018-06-02] MEDS: rOPINIRole 0.25 MG TABLET PO SCH (21:43)
[2018-06-02] MEDS: ROSUVASTATIN 10 MG TABLET PO SCH (21:44)
[2018-06-02] MEDS: ZALEPLON 5 MG CAPSULE PO SCH (21:44)
[2018-06-03] MEDS: FLUTICASONE 50 MCG NASAL SPRAY 16 GM BOTTLE BOTH NARES SCH ×2 (00:55→08:22)
[2018-06-03 04:23] LABS: Basophils # 0.1 10*3/uL (0.0-0.2); Eosinophils # 0.2 10*3/uL (0.0-0.87); Eosinophils % 2.5 % (0.00-10.9); Hematocrit 31.2 VOL% (42.0-52.0); Hemoglobin 9.9 GM/DL (14.0-18.0); Immature Granulocytes % 0.4 %; Immature Granulocytes Absolute 0.03 #; Lymphocytes # 1.1 10*3/uL (1.4-4.0); Lymphocytes % 16.8 % (21.2-54.2); Mean Corpuscular HGB Conc 31.7 GM/DL (32-36); Mean Corpuscular Hemoglobin 29 PG (27-34); Mean Corpuscular Volume 91.2 FL (87-102); Mean Platelet Volume 10.9 FL (9.6-12.0); Monocytes # 0.8 10*3/uL (0.11-0.8); Monocytes % 12.5 % (1.7-12.7); Neutrophils # 4.5 10*3/uL (1.4-7.4); Neutrophils % 66.8 % (38.7-73.9); Platelet Count 129 T/CUMM (130-400); Red Blood Count 3.42 MC/CUMM (3.8-5.5); Red Cell Distribution Width 13.7 % (9.3-17.3); White Blood Count 6.7 T/CUMM (4-12)
[2018-06-03 04:43] LABS: Albumin 2.9 G/DL (3.4-5.0); Calcium 8.9 MG/DL (8.5-10.1); Osmolality,Calculated 277.1 MOS/KG (273-304); Potassium 4.1 MMOL/L (3.5-5.1)
[2018-06-03] MEDS: HEPARIN 5,000 UNIT/1 ML VIAL SUBCUT SCH ×2 (06:17→13:52)
[2018-06-03] MEDS: LEVOTHYROXINE 75 MCG TABLET PO SCH (06:17)
[2018-06-03] MEDS: INSULIN REGULAR 100 UNIT/ML SUBCUT SCH ×2 (07:33→11:36)
[2018-06-03] MEDS: levETIRAcetam 500 MG TABLET PO SCH (08:18)
[2018-06-03] MEDS: ASPIRIN CHEW 81 MG TABLET PO SCH (08:18)
[2018-06-03] MEDS: GABAPENTIN 300 MG CAPSULE PO SCH ×2 (08:18→13:51)
[2018-06-03] MEDS: CARVEDILOL 25 MG TABLET PO SCH (08:18)
[2018-06-03] MEDS: ISOSORBIDE DINITRATE 20 MG TABLET PO SCH (08:19)
[2018-06-03] MEDS: PANTOPRAZOLE 40 MG VIAL IV SCH (08:19)
[2018-06-03] MEDS: OLMESARTAN 20 MG TABLET PO SCH (08:19)
[2018-06-03] MEDS: ERYTHROMYCIN BASE 250 MG TABLET PO SCH ×2 (08:19→13:51)
[2018-06-03] MEDS: METOCLOPRAMIDE 10 MG/2 ML VIAL IV SCH ×2 (08:20→13:52)
[2018-06-03] MEDS: LIDOCAINE/PRILOCAINE CREAM 5 GM TUBE TOP SCH (08:20)
[2018-06-03] MEDS: cefTRIAXone 1,000 MG in SYRINGE 1 EACH IV SCH (13:52)
[2018-06-03 14:10] VITALS: BP 150/80
== END 2018-06-03 15:00 | disposition home or self-care (01) | DRG 313 ==
LOC: EDUNIT# → EDBD → N.ED 18:23 → N.EDINP 05-31 00:52 → N.TELEN 05-31 02:02

== ENCOUNTER 2018-06-10 15:48 | Inpatient (IN) ==
[2018-06-10 16:31] LABS: Basophils # 0.1 10*3/uL (0.0-0.2); Basophils % 1.2 % (0.0-0.8); Eosinophils # 0.2 10*3/uL (0.0-0.87); Hematocrit 31.8 VOL% (42.0-52.0); Immature Granulocytes % 0.4 %; Immature Granulocytes Absolute 0.02 #; Lymphocytes # 0.9 10*3/uL (1.4-4.0); Mean Corpuscular HGB Conc 31.4 GM/DL (32-36); Mean Corpuscular Hemoglobin 28 PG (27-34); Mean Corpuscular Volume 90.1 FL (87-102); Mean Platelet Volume 10.3 FL (9.6-12.0); Monocytes # 0.6 10*3/uL (0.11-0.8); Monocytes % 12.6 % (1.7-12.7); Neutrophils # 3.2 10*3/uL (1.4-7.4); Neutrophils % 64.8 % (38.7-73.9); Platelet Count 122 T/CUMM (130-400); Red Blood Count 3.53 MC/CUMM (3.8-5.5)
[2018-06-10 16:59] LABS: Bilirubin,Total 0.7 MG/DL (0.2-1.0); Osmolality,Calculated 279.8 MOS/KG (273-304); Potassium 3.6 MMOL/L (3.5-5.1); Total Protein 7.1 G/DL (6.4-8.3)
[2018-06-10] MEDS ORDERED: PROMETHAZINE 25 MG TABLET PO STA (17:26)
[2018-06-10] MEDS ORDERED: PROMETHAZINE 25 MG TABLET ONE (17:27)
[2018-06-10] MEDS ORDERED: NITROGLYCERIN SL 0.4 MG TABLET SL STA (17:32)
[2018-06-10] MEDS ORDERED: NITROGLYCERIN SL 0.4 MG TABLET SL ONE (17:33)
[2018-06-10 18:16] LABS: CKMB % 6.4 %; Troponin I 0.04 NG/ML (0.00-0.045)
[2018-06-10] MEDS ORDERED: PROMETHAZINE 25 MG/1 ML VIAL ONE (20:01)
[2018-06-10] MEDS ORDERED: PROMETHAZINE 25 MG/1 ML VIAL IM STA (20:04)
[2018-06-10] MEDS ORDERED: GLUCAGON 1 MG VIAL IM PRN (20:10)
[2018-06-10] MEDS ORDERED: DEXTROSE 50% 25 GM/50 ML VIAL IV PRN (20:10)
[2018-06-10] MEDS ORDERED: PROMETHAZINE INJ 25 MG in SODIUM CHLORIDE 0.9% 50 ML IV PRN (20:12)
[2018-06-10] MEDS ORDERED: ROSUVASTATIN 10 MG TABLET PO SCH (21:00)
[2018-06-10] MEDS ORDERED: SUCROFERRIC OXYHYDROXIDE 1000 MG PO SCH (21:00)
[2018-06-10] MEDS ORDERED: ZALEPLON 5 MG CAPSULE PO SCH (21:00)
[2018-06-10] MEDS ORDERED: rOPINIRole 0.25 MG TABLET PO SCH (21:00)
[2018-06-10] MEDS: ISOSORBIDE DINITRATE 20 MG TABLET PO SCH (22:54)
[2018-06-10] MEDS: levETIRAcetam 500 MG TABLET PO SCH (22:55)
[2018-06-10] MEDS: GABAPENTIN 300 MG CAPSULE PO SCH (22:55)
[2018-06-10] MEDS: METOCLOPRAMIDE 10 MG TABLET PO SCH (22:56)
[2018-06-10] MEDS: INSULIN REGULAR 100 UNIT/ML SUBCUT SCH (22:56)
[2018-06-10] MEDS ORDERED: oxyCODONE/ACETAMINOPHEN 5-325 MG TABLET PO PRN (23:12)
[2018-06-11] MEDS ORDERED: LEVOTHYROXINE 75 MCG TABLET PO SCH (06:00)
[2018-06-11 06:10] LABS: Basophils # 0.1 10*3/uL (0.0-0.2); Eosinophils # 0.1 10*3/uL (0.0-0.87); Eosinophils % 2.4 % (0.00-10.9); Hematocrit 31.8 VOL% (42.0-52.0); Hemoglobin 9.9 GM/DL (14.0-18.0); Immature Granulocytes % 0.3 %; Immature Granulocytes Absolute 0.02 #; Lymphocytes # 1.3 10*3/uL (1.4-4.0); Lymphocytes % 21.3 % (21.2-54.2); Mean Corpuscular HGB Conc 31.1 GM/DL (32-36); Mean Corpuscular Hemoglobin 28 PG (27-34); Mean Corpuscular Volume 90.6 FL (87-102); Mean Platelet Volume 10.9 FL (9.6-12.0); Monocytes # 0.7 10*3/uL (0.11-0.8); Monocytes % 11.9 % (1.7-12.7); Neutrophils # 3.8 10*3/uL (1.4-7.4); Neutrophils % 63.1 % (38.7-73.9); Platelet Count 116 T/CUMM (130-400); Red Blood Count 3.51 MC/CUMM (3.8-5.5)
[2018-06-11 06:26] LABS: Calcium 9.1 MG/DL (8.5-10.1); Osmolality,Calculated 276.8 MOS/KG (273-304); Potassium 3.7 MMOL/L (3.5-5.1)
[2018-06-11] MEDS ORDERED: ASPIRIN CHEW 81 MG TABLET PO SCH (09:00)
[2018-06-11] MEDS ORDERED: PANTOPRAZOLE 40 MG VIAL IV SCH (09:00)
[2018-06-11] MEDS ORDERED: NON-FORMULARY MEDICATION (Dexlansoprazole [Dexilant] 60 MG) PO SCH (09:00)
[2018-06-11] MEDS ORDERED: OLMESARTAN 20 MG TABLET PO SCH (09:00)
[2018-06-11] MEDS: GABAPENTIN 300 MG CAPSULE PO SCH ×3 (09:51→17:31)
[2018-06-11] MEDS: levETIRAcetam 500 MG TABLET PO SCH (09:51)
[2018-06-11] MEDS: METOCLOPRAMIDE 10 MG TABLET PO SCH ×3 (09:52→15:35)
[2018-06-11] MEDS: ERYTHROMYCIN BASE 250 MG TABLET PO SCH ×3 (09:52→15:35)
[2018-06-11] MEDS: ISOSORBIDE DINITRATE 20 MG TABLET PO SCH ×2 (09:52→15:35)
[2018-06-11] MEDS: INSULIN REGULAR 100 UNIT/ML SUBCUT SCH ×3 (09:55→17:31)
[2018-06-11] MEDS: CARVEDILOL 25 MG TABLET PO SCH ×2 (09:55→17:31)
[2018-06-11] MEDS ORDERED: DOCUSATE/SENNA 50-8.6 MG TABLET PO SCH (10:00)
[2018-06-11 12:40] VITALS: BP 188/91
[2018-06-11] MEDS ORDERED: METHYLNALTREXONE 12 MG/0.6 ML VIAL SUBCUT ONE (14:17)
[2018-06-11] MEDS ORDERED: LACTULOSE 20 GM/30 ML UDCUP PO SCH (18:00)
== END 2018-06-11 17:34 | disposition home or self-care (01) | DRG 391 ==
LOC: N.ED 15:48 → SUATTDRO 20:05 → N.EDINP 20:05 → N.TELES 21:57
PROVIDERS: ADMIT Phlebology; ATTEND Internal Medicine